=== PATIENT | female | born 1945 | race Caucasian/White ===

== ENCOUNTER 2016-11-19 22:27 | Emergency (ER) | payer MEDICARE, OTHER ==
[2016-11-19 22:47] LABS: BASO % 0.4 % (0-6); EOS % 3.5 % (0-6); GRAN % 57.4 % (47-80); HEMATOCRIT 34.6 % (35.0-47.0); HEMOGLOBIN 11.4 gm/dl (11.6-16.0); LYMPH % 27.1 % (16-45); MEAN CELL VOLUME 76.7 fl (81-97); MEAN CORPUSCULAR HEMOGLOBIN 25.2 pg (27-33); MEAN CORPUSCULAR HGB CONC 32.9 g/dl (32-36); MEAN PLATELET VOLUME 10.6 fl (7.4-10.4); MONO % 11.6 % (0-9); PLATELET COUNT 178 K/uL (130-400); RED BLOOD COUNT 4.51 M/uL (3.80-5.40); RED CELL DISTRIBUTION WIDTH 14.4 % (11.5-14.5); WHITE BLOOD COUNT W/O DIFF 10.4 K/uL (4.2-12.2)
--- NOTE | 2016-11-19 22:53 | Emergency Department Record ---
History of Present Illness - General Chief complaint: Swelling of legs Stated complaint: SWOLLEN FEET Time Seen by Provider: 11/19/16 22:34 Source: Patient Mode of Arrival: Ambulatory Limitations: No limitations - History of Present Illness Initial comments: 71 yo female presents to ED with a CC of "swelling all over, I feel like I'm retaining water". Patient denies chest pain or difficulty breathing. Patient denies change in her medications or sodium intake, denies fevers, chills, or recent illness. Patient does report a history of atrial fibrillation s/p ablation, still takes Eliquis daily. Complaint: Extremity swelling Onset/Timin -: Days(s) Location: Bilateral History of Same: Yes Consistency: Constant Improves with: Nothing Worsens with: Nothing Associated Symptoms: Denies other symptoms - Related Data Home Medications Medication Instructions Recorded Confirmed Last Taken Brimonidine Tartrate [Alphagan P] 1 drop OP BID 04/18/14 11/19/16 11/15/14 Carboxymethylcellulose Sodium 1 drop OP BID 04/18/14 11/19/16 11/15/14 [Refresh Tears] Cholecalciferol (Vitamin D3) 2,000 unit PO DAILY 04/18/14 11/19/16 11/15/14 [Vitamin D3] Cyclosporine [Restasis] 1 each OP BID 04/18/14 11/19/16 11/15/14 Fish Oil/Dha/Epa [Fish Oil 1,200 1 each PO DAILY 04/18/14 11/19/16 11/15/14 mg Fish Oil] Insulin Aspart [Novolog] 0 unit SQ QIDINS PRN 04/18/14 11/19/16 11/15/14 Insulin Glargine,Hum.rec.anlog 38 units SQ BID 04/18/14 11/19/16 11/15/14 [Lantus Solostar] Levothyroxine Sodium [Levoxyl] 50 mcg PO DAILYTHY 04/18/14 11/19/16 11/15/14 Multivitamin [Multi-Vitamin Daily] 1 each PO DAILY 04/18/14 11/19/16 11/15/14 Olopatadine HCl [Patanol] 5 ml OP BID 04/18/14 11/19/16 11/15/14 Omeprazole [Prilosec] 20 mg PO DAILYAC 06/12/0111/19/16 11/15/14 Pitavastatin Calcium [Livalo] 4 mg PO DAILY 04/18/14 11/19/16 11/15/14 Pregabalin [Lyrica] 150 mg PO DAILY PRN 04/18/14 11/19/16 11/15/14 Apixaban [Eliquis] 5 mg PO BID 11/05/14 11/19/16 11/15/14 Aspirin [Ecotrin] 81 mg PO DAILY 11/05/14 11/19/16 11/15/14 Potassium Chloride [Klor-Con] 40 meq PO DAILY 11/15/14 11/19/16 11/15/14 Losartan Potassium [Cozaar] 50 mg PO DAILY 05/29/15 11/19/16 Unknown Amlodipine Besylate [Norvasc] 5 mg PO DAILY 06/15/16 11/19/16 Unknown Bimatoprost [Lumigan] 1 drop OP QHS 06/18/16 11/19/16 Unknown Carvedilol [Coreg] 12.5 mg PO BID 06/18/16 11/19/16 Unknown Levothyroxine Sodium [Synthroid] 13 mcg PO DAILYTHY 06/18/16 11/19/16 Unknown Lipase/Protease/Amylase [Zenpep Dr 12 cap PO BID 06/18/16 11/19/16 Unknown 5,000 Units Capsule] Calcium Carbonate [Calcium] 600 mg PO DAILY 11/19/16 11/19/16 Unknown Clonidine HCl [Catapres] 0.1 mg PO BID PRN 11/19/16 11/19/16 Unknown Diphenoxylate HCl/Atropine 1 each PO QID 11/19/16 11/19/16 Unknown [Lomotil 2.5-0.025 mg Tablet] Furosemide [Lasix] 40 mg PO DAILY 11/19/16 11/19/16 Unknown Allergies Allergy/AdvReac Type Severity Reaction Status Date / Time hydrocodone bitartrate Allergy Unknown RASH Verified 09/29/16 21:24 [From VICODIN] hydromorphone HCl Allergy Unknown NAUSEA AND Verified 09/29/16 21:24 [From DILAUDID] VOMITING morphine [MORPHINE] Allergy Unknown NAUSEA AND Verified 09/29/16 21:24 VOMITING Travel Screening - Travel/Exposure Within Last 30 Days Have you traveled within the last 30 days?: No Review of Systems Constitutional: Denies: Chills, Fever, Malaise, Night sweats Eyes: Denies: Eye discharge, Eye pain ENT: Denies: Congestion, Ear pain, Epistaxis Respiratory: Denies: Cough, Dyspnea Cardiovascular: Reports: Edema. Denies: Chest pain, Dyspnea on exertion, Palpitations Endocrine: Denies: Fatigue, Heat or cold intolerance Gastrointestinal: Denies: Abdominal pain, Nausea, Vomiting Musculoskeletal: Denies: Arthralgia, Back pain, Gout, Joint swelling Skin: Denies: Bruising, Change in color Neurological: Denies: Abnormal gait, Headache Psychiatric: Denies: Anxiety Hematological/Lymphatic: Denies: Anemia, Blood Clots Past Medical History - SOCIAL HISTORY Smoking Status: Former smoker Alcohol Use: None - RESPIRATORY Hx Respiratory Disorders: Yes Hx Asthma: Yes - CARDIOVASCULAR Hx Cardio Disorders: Yes Hx CHF: Yes Hx Hypertension: Yes Hx Irregular Heartbeat: Yes (A-fib) Hx Palpitations: Yes Comment:: skips beat - NEURO Hx Neuro Disorders: No - GI Hx GI Disorders: Yes Hx Reflux: Yes Comment:: trouble with gastric enzymes - Hx Genitourinary Disorders: No - ENDOCRINE Hx Endocrine Disorders: Yes Hx Diabetes: Yes (type 2 with insulin) Hx Thyroid Disease: Yes (hypo) - MUSCULOSKELETAL Hx Musculoskeletal Disorders: Yes Hx Arthritis: Yes Hx Osteoporosis: Yes - PSYCH Hx Psych Problems: No - HEMATOLOGY/ONCOLOGY Hx Hematology/Oncology Disorders: Yes Hx Bruising: Yes Family Medical History Any Significant Family History?: Yes Hx Diabetes: Father, Mother, Brother/Sister Hx Heart Disease: Mother Hx Resp Disorders: Father Physical Exam - General General Appearance: Alert, Oriented x3, Cooperative, No acute distress Limitations: No limitations - Head Head exam: Atraumatic, Normocephalic, Normal inspection Head exam detail: negative: Abrasion, Contusion, Mane's sign, General tenderness, Hematoma, Laceration - Eye Eye exam: Normal appearance. negative: Conjunctival injection, Periorbital swelling, Periorbital tenderness, Scleral icterus - ENT Ear exam: negative: Auricular hematoma, Auricular trauma Nasal Exam: negative: Active bleeding, Discharge, Dried blood, Foreign body Mouth exam: negative: Drooling, Laceration, Muffled voice, Tongue elevation - Neck Neck exam: Normal inspection. negative: Meningismus - Respiratory Respiratory exam: Decreased breath sounds. negative: Respiratory distress, Rhonchi, Stridor, Wheezes - Cardiovascular Cardiovascular Exam: Regular rate, Normal rhythm, Normal heart sounds - GI/Abdominal GI/Abdominal exam: Soft. negative: Rebound, Rigid, Tenderness - Rectal Rectal exam: Deferred - exam: Deferred - Extremities Extremities exam: Pedal edema (2+ bilaterally). negative: Calf tenderness - Back Back exam: Denies: CVA tenderness (R), CVA tenderness (L) - Neurological Neurological exam: Alert, Normal gait, Oriented X3 - Psychiatric Psychiatric exam: Normal affect, Normal mood - Skin Skin exam: Normal color. negative: Abrasion Type of lesion: negative: abrasion Course Vital Signs 11/19/16 22:33 Temperature 97.6 F Pulse Rate [ 72 Pulse Ox Probe] Respiratory 20 Rate Blood Pressure 162/74 [Left Arm] Pulse Ox 95 - Reevaluation(s) Reevaluation #1: 11/19/16 22:48 EKG: NSR 65 LBBB, unchanged from 06/15/16 except for atrial fibrillation Reevaluation #2: 11/19/16 23:13 Labs reviewed and are grossly unremarkable for an acute process (BNP 294). CXR: Chronic changes, no pleural effusions or edema present Patient was updated on all results, no evidence for acute decompensated CHF on examination, renal function appears normal as well. Patient appears stable for discharge at this time with her scheduled appointment with her PCP later this week. Patient was advised to keep her lower extremities elevated as much as possible as well to reduce her edema symptoms. Medical Decision Making - Lab Data Result diagrams: 11/19/16 22:41 11/19/16 22:41 Lab Results 11/19/16 Range/Units 22:41 WBC 10.4 (4.2-12.2) K/uL RBC 4.51 (3.80-5.40) M/uL Hgb 11.4 L (11.6-16.0) gm/dl Hct 34.6 L (35.0-47.0) % MCV 76.7 L (81-97) fl MCH 25.2 L (27-33) pg MCHC 32.9 (32-36) g/dl RDW 14.4 (11.5-14.5) % Plt Count 178 (130-400) K/uL MPV 10.6 H (7.4-10.4) fl Gran % 57.4 (47-80) % Lymphocytes % 27.1 (16-45) % Monocytes % 11.6 H (0-9) % Eosinophils % 3.5 (0-6) % Basophils % 0.4 (0-6) % Disposition Disposition: Discharge Clinical Impression: Peripheral edema Disposition: Home, Self-Care Condition: (2) Stable Instructions: Leg Edema (ED) Additional Instructions: Return to ED if your symptoms worsen or if you have any concerns. Keep your legs elevated as much as possible Follow-up with your family doctor in 1-3 days as directed. Forms: Patient Portal Access Time of Disposition: 23:10
[2016-11-19 22:58] LABS: ALB/GLOB RATIO 1.4 (1.1-1.8); ALBUMIN 4.2 gm/dL (3.5-5.0); ALKALINE PHOSPHATASE 91 U/L (38-126); ALT/SGPT 49 U/L (9-52); ANION GAP 9.7 (7-16); AST/SGOT 30 U/L (14-36); BILIRUBIN,TOTAL 0.23 mg/dL (0.2-1.3); BLOOD UREA NITROGEN 22 mg/dL (7-17); CARBON DIOXIDE 24.3 mmol/L (22-30); CREATININE 0.8 mg/dL (0.52-1.04); EST GLOMERULAR FILTRATION RATE > 60 ml/min; GLUCOSE,RANDOM 179 mg/dL (70-110); TOTAL PROTEIN 7.1 gm/dL (6.3-8.2)
[2016-11-19 23:12] LABS: TROPONIN I < 0.012 ng/mL (0.00-0.034)
--- NOTE | 2016-11-22 16:54 | RADIOLOGY REPORT ---
DATE: 11/19/2016 at 11:01 p.m. EXAM: TWO-VIEW CHEST. HISTORY: Chest tightness and lower extremity swelling. Fluid overload. TECHNIQUE: AP and lateral upright views of the chest were obtained. COMPARISON: 03/14/2015. FINDINGS: There are low lung volumes. The heart is borderline enlarged. The mediastinum and pulmonary vasculature are normal. Mild chronic-appearing interstitial changes are present at the lung bases. There are no visible acute infiltrates or effusions. There is no pneumothorax. Degenerative changes are present within the spine and shoulders. IMPRESSION: 1. LOW LUNG VOLUMES. 2. BORDERLINE CARDIOMEGALY AND CHRONIC INTERSTITIAL CHANGES. 3. NO ACUTE CHEST PATHOLOGY. JOB NUMBER: [id number] [facility]
== END 2016-11-19 23:30 | disposition home or self-care (01) ==
LOC: ER 22:27
DX: R60.0 Localized edema (principal); I48.91 Unspecified atrial fibrillation; R07.89 Other chest pain; E11.9 Type 2 diabetes mellitus without complications; I10 Essential (primary) hypertension; I50.9 Heart failure, unspecified; Z79.4 Long term (current) use of insulin; Z87.891 Personal history of nicotine dependence
CPT/HCPCS: 71020; 80053; 83880; 84484; 85025; 93005; 93010; 99284

== ENCOUNTER 2017-11-21 21:00 | Inpatient (IN) | payer MEDICARE, OTHER ==
--- NOTE | 2017-11-21 21:10 | Emergency Department Record ---
History of Present Illness - General Stated complaint: body aches,fever Time Seen by Provider: 11/21/17 21:02 Source: Patient Mode of Arrival: EMS Limitations: No limitations - History of Present Illness Initial comments: 72 yo female presents to ED for evaluation of nausea and vomiting symptoms that began approximately 12:00 today. Patient denies abdominal pain symptoms, reports low-grade fever and body aches today as well. Patient denies cough or difficulty in breathing symptoms. MD complaint: Nausea, Vomiting Onset/Timin -: Hour(s) Associated Abdominal Pain: No Severity: Moderate Consistency: Intermittent Improves with: None Worsens with: None Associated Symptoms: Fever/chills - Related Data Home Medications Medication Instructions Recorded Confirmed Last Taken Acetaminophen with Codeine 1 tab PO Q6HR PRN 11/21/17 11/21/17 Unknown [Tylenol with Codeine #3 Tablet] Calcium Carbonate/Vitamin D3 1 each PO DAILY 11/21/17 11/21/17 11/21/17 [Calcium 600 + Vit D Tablet] Allergies Allergy/AdvReac Type Severity Reaction Status Date / Time hydrocodone bitartrate Allergy Unknown RASH Verified 09/29/16 21:24 [From VICODIN] hydromorphone HCl Allergy Unknown NAUSEA AND Verified 09/29/16 21:24 [From DILAUDID] VOMITING morphine [MORPHINE] Allergy Unknown NAUSEA AND Verified 09/29/16 21:24 VOMITING Review of Systems Constitutional: Reports: Fever, Malaise. Denies: Chills, Night sweats Eyes: Denies: Eye discharge, Eye pain ENT: Denies: Congestion, Ear pain, Epistaxis Respiratory: Denies: Cough, Dyspnea Cardiovascular: Denies: Chest pain, Dyspnea on exertion Endocrine: Denies: Fatigue, Heat or cold intolerance Gastrointestinal: Reports: Nausea, Vomiting. Denies: Constipation Genitourinary: Denies: Incontinence, Retention Musculoskeletal: Denies: Arthralgia, Back pain Skin: Denies: Bruising, Change in color Neurological: Denies: Abnormal gait, Confusion, Headache, Seizure Psychiatric: Denies: Anxiety Hematological/Lymphatic: Denies: Anemia, Blood Clots Past Medical History - SOCIAL HISTORY Smoking Status: Former smoker - RESPIRATORY Hx Respiratory Disorders: Yes Hx Asthma: Yes - CARDIOVASCULAR Hx Cardio Disorders: Yes Hx CHF: Yes Hx Hypertension: Yes Hx Irregular Heartbeat: Yes (A-fib) Hx Palpitations: Yes Comment:: skips beat - NEURO Hx Neuro Disorders: No - GI Hx GI Disorders: Yes Hx Reflux: Yes Comment:: trouble with gastric enzymes - Hx Genitourinary Disorders: No - ENDOCRINE Hx Endocrine Disorders: Yes Hx Diabetes: Yes (type 2 with insulin) Hx Thyroid Disease: Yes (hypo) - MUSCULOSKELETAL Hx Musculoskeletal Disorders: Yes Hx Arthritis: Yes Hx Osteoporosis: Yes - PSYCH Hx Psych Problems: No - HEMATOLOGY/ONCOLOGY Hx Hematology/Oncology Disorders: Yes Hx Bruising: Yes Family Medical History Hx Diabetes: Father, Mother, Brother/Sister Hx Heart Disease: Mother Hx Resp Disorders: Father Physical Exam - General General Appearance: Alert, Oriented x3, Cooperative, Moderate distress Limitations: No limitations - Head Head exam: Atraumatic, Normocephalic, Normal inspection Head exam detail: negative: Abrasion, Contusion, Mane's sign, General tenderness, Hematoma, Laceration - Eye Eye exam: Normal appearance. negative: Conjunctival injection, Periorbital swelling, Periorbital tenderness, Scleral icterus - ENT Ear exam: negative: Auricular hematoma, Auricular trauma Nasal Exam: negative: Active bleeding, Discharge, Dried blood, Foreign body Mouth exam: negative: Drooling, Laceration, Muffled voice, Tongue elevation - Neck Neck exam: Normal inspection. negative: Meningismus, Tenderness - Respiratory Respiratory exam: Normal lung sounds bilaterally. negative: Rales, Respiratory distress, Rhonchi, Stridor - Cardiovascular Cardiovascular Exam: Regular rate, Normal rhythm, Normal heart sounds - GI/Abdominal GI/Abdominal exam: Soft. negative: Rebound, Rigid, Tenderness - Rectal Rectal exam: Deferred - exam: Deferred - Extremities Extremities exam: Normal inspection. negative: Pedal edema, Tenderness - Back Back exam: Denies: CVA tenderness (R), CVA tenderness (L) - Neurological Neurological exam: Alert, Oriented X3 - Psychiatric Psychiatric exam: Normal affect, Normal mood - Skin Skin exam: Normal color. negative: Abrasion Type of lesion: negative: abrasion Course - Reevaluation(s) Reevaluation #1: 11/21/17 21:11 EKG: NSR 88 LBBB No further interpretation due to LBBB No change from 11/19/16 Reevaluation #2: 11/21/17 21:50 Labs reviewed, WBC 14.4, 83% neutrophils, Lactic acid 1.4, Influenza negative. Labs are otherwise grossly unremarkable for an acute process. Reevaluation #3: 11/21/17 22:09 CXR: Cardiomegaly, pulmonary vascular congestion Motrin 800 mg and Ofirmiv ordered for body aches/fever, will initiate treatment for probable CAP with Levaquin and Duonebs q4h. Reevaluation #4: 11/21/17 23:47 Patient was switched to Bipap prior to transfer to the floor, patient is sleeping, tolerating the Bipap well with oxygen saturations of 94-95%. Will admit to the floor for further evaluation. Reevaluation #5: 11/22/17 06:49 Case was discussed with Denise Martinez, will accept admission at this time. Medical Decision Making - Lab Data Result diagrams: 11/21/17 20:40 11/21/17 20:40 Disposition Disposition: Admit Clinical Impression: Hypoxia CAP (community acquired pneumonia) Qualifiers: Laterality: unspecified laterality Qualified Code(s): J18.9 - Pneumonia, unspecified organism Nausea & vomiting Qualifiers: Vomiting type: unspecified Vomiting Intractability: non-intractable Qualified Code(s): R11.2 - Nausea with vomiting, unspecified Disposition: Still a Patient at [facility] Decision to Admit: Admit from ER Decision to Admit Date: 11/21/17 Decision to Admit Time: 22:10 Condition: (2) Stable Time of Disposition: 21:52 Quality - Quality Measures Quality Measures: N/A - Blood Pressure Screening Does Patient Have Any of the Following: Active Dx of HTN Blood Pressure Classification: Pre-Hypertensive BP Reading Systolic Measurement: 130 Diastolic Measurement: 53 Screening for High Blood Pressure: Patient Exclusion, Hx of HTN [G9744]
[2017-11-21] MEDS ORDERED: 0.9 % SODIUM CHLORIDE 1000ML 1,000 ML IV SCH (21:15)
[2017-11-21 21:16] LABS: HEMATOCRIT 34.5 % (35.0-47.0); HEMOGLOBIN 11.3 gm/dl (11.6-16.0); MEAN CELL VOLUME 80.8 fl (81-97); MEAN CORPUSCULAR HGB CONC 32.8 g/dl (32-36); MEAN PLATELET VOLUME 10.5 fl (7.4-10.4); PLATELET COUNT 170 K/uL (130-400); RED BLOOD COUNT 4.27 M/uL (3.80-5.40); RED CELL DISTRIBUTION WIDTH 13.4 % (11.5-14.5); WHITE BLOOD COUNT W/O DIFF 14.4 K/uL (4.2-12.2)
[2017-11-21 21:18] LABS: MEAN CORPUSCULAR HEMOGLOBIN 26.4 pg (27-33)
[2017-11-21 21:30] LABS: INFLUENZA A NEGATIVE (NEGATIVE); INFLUENZA B NEGATIVE (NEGATIVE)
[2017-11-21 21:43] LABS: ALB/GLOB RATIO 1.2 (1.1-1.8); ALBUMIN 4.1 g/dL (4.0-5.0); ALKALINE PHOSPHATASE 104 U/L (35-104); ALT/SGPT 19 U/L (<33); AST/SGOT 20 U/L (10.0-35.0); BLOOD UREA NITROGEN 20 mg/dL (8-23); CREATININE 0.8 mg/dL (0.5-0.9); EST GLOMERULAR FILTRATION RATE > 60 mL/min; GLUCOSE,RANDOM 172 mg/dL (74-109); TOTAL PROTEIN 7.4 g/dL (6.6-8.7)
[2017-11-21] MEDS ORDERED: IPRATROPIUM/ALBUTEROL (0.5MG/3MG) NEB INH ONE (21:52)
[2017-11-21] MEDS ORDERED: ACETAMINOPHEN 1,000 MG/100 ML BTL IVPB ONE (22:07)
[2017-11-21] MEDS ORDERED: IBUPROFEN 400 MG TABLET PO ONE (22:07)
[2017-11-21] MEDS ORDERED: LEVOFLOXACIN 250MG IVPB 250 MG/50 ML BAG IVPB ONE (22:10)
[2017-11-21] MEDS ORDERED: LEVOFLOXACIN/D5W 750 MG/150 ML BAG IVPB ONE (22:18)
[2017-11-21] MEDS ORDERED: ACETAMINOPHEN 500 MG TABLET PO PRN (23:40)
[2017-11-21] MEDS ORDERED: ALBUTEROL SULFATE (0.083%) 2.5 MG/3 ML NEB INH PRN (23:40)
[2017-11-21] MEDS ORDERED: INSULIN ASPART 1 UNIT SQ PRN (23:40)
[2017-11-21] MEDS ORDERED: CLONIDINE HCL 0.1 MG TABLET PO PRN (23:40)
[2017-11-21] MEDS ORDERED: 0.9 % SODIUM CHLORIDE 1000ML 1,000 ML IV PRN (23:40)
[2017-11-21] MEDS ORDERED: ONDANSETRON HCL IV 4 MG/2 ML VIAL IVP PRN (23:40)
[2017-11-22] MEDS ORDERED: IPRATROPIUM/ALBUTEROL (0.5MG/3MG) NEB INH SCH (06:00)
[2017-11-22] MEDS: LEVOTHYROXINE SODIUM 50 MCG TABLET PO SCH (06:09)
[2017-11-22] MEDS ORDERED: PANTOPRAZOLE SODIUM 40 MG TABLET PO SCH (07:00)
--- NOTE | 2017-11-22 07:18 | RADIOLOGY REPORT ---
EXAM: CHEST, TWO VIEWS HISTORY: DIFFICULTY IN BREATHING. TECHNIQUE: Frontal and lateral views of the chest were performed. FINDINGS: There is cardiomegaly with mild pulmonary vascular congestion. No infiltrate or pleural effusion. The osseous structures are normal. IMPRESSION: CARDIOMEGALY WITH PULMONARY VASCULAR CONGESTION. JOB NUMBER: [id number] [facility]
[2017-11-22] MEDS ORDERED: LEVEMIR FLEXTOUCH 100 UNIT/ML INSULIN PEN SQ SCH (10:00)
[2017-11-22] MEDS ORDERED: [UNRECOGNIZED DRUG - REMARK] PO SCH (10:00)
[2017-11-22] MEDS ORDERED: PREGABALIN 50 MG CAPSULE PO PRN (10:00)
[2017-11-22] MEDS ORDERED: POTASSIUM CHLORIDE 20 MEQ TABLET PO SCH (10:00)
[2017-11-22] MEDS ORDERED: LOSARTAN POTASSIUM 100 MG TABLET PO SCH (10:00)
[2017-11-22] MEDS ORDERED: FUROSEMIDE 40 MG TABLET PO SCH (10:00)
[2017-11-22] MEDS ORDERED: CARVEDILOL 12.5 MG TABLET PO SCH (10:00)
[2017-11-22] MEDS ORDERED: FUROSEMIDE IV 20MG/2ML VIAL IVP ONE ×2 (10:09→16:00)
[2017-11-22] MEDS: NOVOLOG FLEXPEN (INSULIN ASPART) 100 UNITS/ML SQ SCH ×4 (10:24→21:39)
[2017-11-22] MEDS: LEVEMIR FLEXTOUCH 100 UNIT/ML INSULIN PEN SQ SCH ×2 (10:25→21:41)
[2017-11-22] MEDS: CARVEDILOL 12.5 MG TABLET PO SCH ×3 (10:29→23:11)
[2017-11-22] MEDS: POTASSIUM CHLORIDE 20 MEQ TABLET PO SCH ×2 (10:30→21:46)
[2017-11-22] MEDS: IPRATROPIUM/ALBUTEROL (0.5MG/3MG) NEB INH PRN ×3 (10:30→21:42)
[2017-11-22] MEDS: ASPIRIN 81 MG TABEC PO SCH (10:30)
[2017-11-22] MEDS: APIXABAN 5MG TABLET PO SCH ×2 (10:30→21:45)
--- NOTE | 2017-11-22 10:36 | History & Physical ---
History of Present Illness - Date of Service Date of Service for History & Physical: 11/22/17 - History of Present Illness Admitting Diagnosis: Hypoxia. CAP. Nausea/vomiting History of Present Illness: Fernanda is a 72 year-old female who was admitted on 11/21/17 for management of hypoxia. Her history includes A-fib (treated with daily Eliquis) , CHF, asthma, ex-smoker, IDDM, hypothyroid, hypertension, GERD, chronic diarrhea, issue with digestive enzymes, LL edema, chronic pain, arthritis, osteoporosis, spinal stenosis. She lives at home and normally ambulates with a cane. She presented to the ED on 11/21/17 via EMS after experiencing nausea, vomiting, and weakness at home for about 9 hours. Upon presentation to the ED, her oxygen was 78% on room air and her temp was 100.2F. Labs were drawn and her WBC was slightly elevated at 14.4, neurophils 83%. Her EKG showed NSR with left BBB, unchanged from EKG on 11/19/16. Influenza A and B were negative. Her chest x-ray showed cardiomegaly and pulmonary vascular congestion with no infiltrates. She was admitted for management of hypoxia from possible community acquired pneumonia. She was placed on continuous patient monitor and bipap during the night and started on Levaquin 750mg IV daily, Duonebs q4h while awake, and Albuterol neb q4h prn difficulty breathing. 11/22/17 1000- Pt. is resting in bed. She states that she feels much better today than she did yesterday. She denies nausea, vomiting, cough, recent illness, fever, and recent exposure to anyone ill. She states that she had been weighing herself at home and she had noticed some recent weight gain. She states that she takes all of her medications as scheduled and has not missed any doses of Eliquis or Lasix. She has remained afebrile throughout the night and NSR on continuous telemetry. She has received 2 duoneb treatments. Travel Screening - Travel/Exposure Within Last 30 Days Have you traveled within the last 30 days?: No - Travel/Exposure Within Last Year Have you traveled outside the [place] in the last year?: No - Additonal Travel Details Have you been exposed to anyone with a communicable illness?: No - Travel Symptoms Symptom Screening: None Review of Systems Constitutional: Reports: Malaise, Weight change. Denies: Chills, Fever, Night sweats Eyes: Denies: Eye discharge, Eye pain ENT: Denies: Congestion, Ear pain, Epistaxis Respiratory: Denies: Cough, Dyspnea Cardiovascular: Reports: Edema. Denies: Chest pain, Dyspnea on exertion Endocrine: Denies: Fatigue, Heat or cold intolerance Gastrointestinal: Reports: Nausea, Vomiting. Denies: Constipation Genitourinary: Denies: Incontinence, Retention Musculoskeletal: Denies: Arthralgia, Back pain Skin: Denies: Bruising, Change in color Neurological: Denies: Abnormal gait, Confusion, Headache, Seizure Psychiatric: Denies: Anxiety Hematological/Lymphatic: Denies: Anemia, Blood Clots Past Medical History - SOCIAL HISTORY Smoking Status: Former smoker Alcohol Use: None Drug Use: None - RESPIRATORY Hx Respiratory Disorders: Yes Hx Asthma: Yes - CARDIOVASCULAR Hx Cardio Disorders: Yes Hx CHF: Yes Hx Hypertension: Yes Hx Irregular Heartbeat: Yes (A-fib) Hx Palpitations: Yes Comment:: skips beat - NEURO Hx Neuro Disorders: No - GI Hx GI Disorders: Yes Hx Reflux: Yes Comment:: trouble with gastric enzymes - Hx Genitourinary Disorders: No - ENDOCRINE Hx Endocrine Disorders: Yes Hx Diabetes: Yes (type 2 with insulin) Hx Thyroid Disease: Yes (hypo) - MUSCULOSKELETAL Hx Musculoskeletal Disorders: Yes Hx Arthritis: Yes Hx Osteoporosis: Yes - PSYCH Hx Psych Problems: No - HEMATOLOGY/ONCOLOGY Hx Hematology/Oncology Disorders: Yes Hx Bruising: Yes Family Medical History Hx Diabetes: Father, Mother, Brother/Sister Hx Heart Disease: Mother Hx Resp Disorders: Father H&P Meds/Allergies - Allergies Allergies: Allergies Allergy/AdvReac Type Severity Reaction Status Date / Time hydrocodone bitartrate Allergy Unknown RASH Verified 09/29/16 21:24 [From VICODIN] hydromorphone HCl Allergy Unknown NAUSEA AND Verified 09/29/16 21:24 [From DILAUDID] VOMITING morphine [MORPHINE] Allergy Unknown NAUSEA AND Verified 09/29/16 21:24 VOMITING - Home Medications Home Medications Medication Instructions Recorded Confirmed Last Taken Acetaminophen with Codeine 1 tab PO Q6HR PRN 11/21/17 11/21/17 Unknown [Tylenol with Codeine #3 Tablet] Calcium Carbonate/Vitamin D3 1 each PO DAILY 11/21/17 11/21/1711/21/18 [Calcium 600 + Vit D Tablet] Amlodipine Besylate [Norvasc] 10 mg PO QHS 11/22/17 11/22/17 Unknown Carboxymethylcellulos/Glycerin 1 drop OPTH BID 11/22/17 11/22/17 Unknown [Refresh Optive Gel Eye Drops] - Active Medications Active Medications: Current Medications Acetaminophen (Tylenol 500mg Tab) 1,000 mg PO Q6H PRN PRN Reason: PAIN/TEMP Albuterol Sulfate () 2.5 mg INH RESP.Q4H PRN PRN Reason: DIFFICULTY IN BREATHING Albuterol/Ipratropium (Duoneb) 3 ml INH RESP.Q4H PRN PRN Reason: Wheezing Amlodipine Besylate (Norvasc) 10 mg PO QHS [facility] Lipase/Protease/Amylase (Pancrelipase 5,000 Dr Capsule) 4 each PO DAILYWM [facility] Lipase/Protease/Amylase (Pancrelipase 5,000 Dr Capsule) 3 each PO 1230,1730 [facility] Lipase/Protease/Amylase (Pancrelipase 5,000 Dr Capsule) 2 each PO QHS [facility] Apixaban (Eliquis) 5 mg PO BID [facility] Aspirin (Ecotrin (Ec)) 81 mg PO DAILY [facility] Carvedilol (Coreg) 25 mg PO BID [facility] Clonidine HCl (Catapres) 0.1 mg PO BID PRN PRN Reason: systolic greater than 150 Diphenoxylate HCl/Atropine (Lomotil) 1 udtab PO QIDWMHS [facility] Diphenoxylate HCl/Atropine (Lomotil) 1 udtab PO 0600 [facility] Furosemide (Lasix) 40 mg PO DAILY [facility] Furosemide (Lasix Iv) 20 mg IVP NOW ONE Stop: 11/22/17 10:10 Levofloxacin/Dextrose (Levaquin 750mg Ivpb) 750 mg in 150 mls @ 125 mls/hr IVPB Q24H [facility] Stop: 11/27/17 22:01 Insulin Aspart (Novolog Flexpen) 1 unit SQ QIDINS [facility] PRN Reason: Protocol Insulin Detemir (Levemir Flextouch) 27 unit SQ BID [facility] Levothyroxine Sodium (Synthroid) 50 mcg PO DAILYTHY [facility] Last Admin: 11/22/17 06:09 Dose: 50 mcg Levothyroxine Sodium (Synthroid) 12.5 mcg PO DAILYTHY [facility] Losartan Potassium (Losartan Potassium) 100 mg PO DAILY [facility] Non-Formulary Medication (Bimatoprost [Lumigan]) 1 drop OP QHS [facility] Non-Formulary Medication (Brimonidine Tartrate [Alphagan P]) 1 drop OP BID [facility] Non-Formulary Medication (Carboxymethylcellulose Sodium [Refresh Tears]) 1 drop OP BID [facility] Non-Formulary Medication (Cyclosporine [Restasis]) 1 each OP BID [facility] Non-Formulary Medication (Pitavastatin Calcium [Livalo]) 4 mg PO DAILY [facility] Ondansetron HCl (Zofran) 4 mg IVP Q6H PRN PRN Reason: NAUSEA Pantoprazole Sodium (Protonix) 40 mg PO QHS [facility] Potassium Chloride (Klor-Con) 20 meq PO BID [facility] Pregabalin (Lyrica) 150 mg PO QD PRN PRN Reason: Analgesia Physical Exam - Vital Signs Vital Signs: Vital Signs - Last 24 Hrs Temp Pulse Pulse Pulse Resp BP Pulse Ox 11/22/17 06:12 62 22 100 11/22/17 02:35 61 99 11/22/17 00:58 98.6 F 66 72 22 111/50 93 L 11/21/17 23:55 98.0 F 72 24 119/67 97 - General General Appearance: Alert, Oriented x3, Cooperative, Mild distress Limitations: No limitations - Head Head exam: Atraumatic, Normocephalic, Normal inspection Head exam detail: negative: Abrasion, Contusion, Mane's sign, General tenderness, Hematoma, Laceration - Eye Eye exam: Normal appearance. negative: Conjunctival injection, Periorbital swelling, Periorbital tenderness, Scleral icterus - ENT Ear exam: negative: Auricular hematoma, Auricular trauma Nasal Exam: negative: Active bleeding, Discharge, Dried blood, Foreign body Mouth exam: negative: Drooling, Laceration, Muffled voice, Tongue elevation - Neck Neck exam: Normal inspection. negative: Meningismus, Tenderness - Respiratory Respiratory exam: Decreased breath sounds. negative: Rales, Rhonchi, Stridor, Wheezes - Cardiovascular Cardiovascular Exam: Regular rate, Normal rhythm, Normal heart sounds Peripheral Pulses: 2+: Dorsalis Pedis (R), Dorsalis Pedis (L) - GI/Abdominal GI/Abdominal exam: Soft. negative: Rebound, Rigid, Tenderness - Rectal Rectal exam: Deferred - exam: Deferred - Extremities Extremities exam: Normal inspection, Other (Left LE trace edema). negative: Pedal edema, Tenderness - Back Back exam: Denies: CVA tenderness (R), CVA tenderness (L) - Neurological Neurological exam: Alert, Oriented X3 - Psychiatric Psychiatric exam: Normal affect, Normal mood - Skin Skin exam: Normal color. negative: Abrasion Type of lesion: negative: abrasion Results - Labs Result Diagrams: 11/22/17 10:27 11/22/17 10:27 - Imaging and Cardiology Chest x-ray Status: Report reviewed VTE H&P Assessment - Risk for VTE Risk for VTE: Yes Risk Level: Moderate Risk Assessment Date: 11/22/17 Risk Assessment Time: 11:08 VTE Orders Placed or Will Be Placed: No VTE Reason for No Prophylaxis: Not Indicated (Pt. is currently being anticoagulated for A-fib with Eliquis) Plan - Inpatient Certification Inpatient Certification: Admit to inpatient care: Based on my medical assessment, after consideration of patient's risk factors (age, co-morbidities and patient presenting symptoms and acuity), I expect that this patient will remain in the hospital greater than or equal to two midnights and that the services needed warrant inpatient care because: Patient Risk Factors: [Age, co-morbidities of IDDM, CHF, A-fib, HTN, asthma] Estimated length of stay: [] The patient may reasonably be expected to be discharged or transferred to a hospital within 96 hours after admission to [facility]. Services needed: [echo, patient monitor, fluid restriction, PT/OT eval, lab monitoring] Post hospital care (if known): [] I certify that my determination is in accordance with my understanding of Medicare requirements for reasonable and necessary inpatient services. 11/22/17 10:34 - Detailed Diagnosis and Plan (1) Hypoxia Current Visit: Yes Status: Acute Base Code: R09.02 - HYPOXEMIA Comment: 04/04- Pt. oxygen was 78% on room air upon presentation to ED on 11/21/17. She was placed on bipap overnight and now 91% on 4L nc. CXR showed pulmonary vascular congestion and cardiomegaly, no infiltrates. Continuing O2 nc, working up CHF diagnosis with 2 L/day fluid restriction, daily weights, echo. (2) CHF (congestive heart failure) Current Visit: Yes Status: Acute Base Code: I50.9 - HEART FAILURE, UNSPECIFIED Comment: 11/22/17- Consider CHF as underlying cause of hypoxia. CXR showed pulmonary vascular congestion, no visible infiltrates. Pt. now 91% on 4L nc (was 78% on room air upon arrival to ED). Echo ordered today, saline locked IV, daily weights, 2L/day fluid restriction, 20mg lasix IV ordered to [facility]. Labs ordered this morning- CBC with diff, CMP, BNP, TSH. (3) Nausea & vomiting Current Visit: Yes Status: Acute Qualifiers: Vomiting type: unspecified Vomiting Intractability: non-intractable Qualified Code(s): R11.2 - Nausea with vomiting, unspecified Base Code: R11.2 - NAUSEA WITH VOMITING, UNSPECIFIED Comment: 11/22/17- Pt. presented via EMS to ED on 11/21/17 after experiencing nausea and vomiting at home for 8 hours. Pt. denies change in bowel patterns, history of chronic diarrhea. T 100.2F, WBC 14.4. Nausea and vomiting now resolved. Pt. tolerating PO diet. UA ordered to check for possible underlying infection. (4) DVT prophylaxis Current Visit: No Status: Acute Base Code: [id number] - Comment: 11/22/17- Patient is at increased risk with age, restricted mobility and history of afib. Pt. is being treated with Eliquis 5mg PO BID, will continue treatment while hospitalized and pt. jorge continue medication upon discharge. (5) Full code status Current Visit: No Status: Acute Base Code: Z78.9 - OTHER SPECIFIED HEALTH STATUS Comment: 11/22/17- Pt. is full code status
[2017-11-22 10:37] LABS: HEMATOCRIT 31.9 % (35.0-47.0); HEMOGLOBIN 10.1 gm/dl (11.6-16.0); MEAN CELL VOLUME 82.6 fl (81-97); MEAN CORPUSCULAR HGB CONC 31.7 g/dl (32-36); PLATELET COUNT 160 K/uL (130-400); RED BLOOD COUNT 3.86 M/uL (3.80-5.40); RED CELL DISTRIBUTION WIDTH 13.7 % (11.5-14.5); WHITE BLOOD COUNT W/O DIFF 15.2 K/uL (4.2-12.2)
[2017-11-22] MEDS: DIPHENOXYLATE HCL/ATROP 2.5/0.025MG TABLET PO SCH ×4 (10:43→21:47)
[2017-11-22] MEDS: LOSARTAN POTASSIUM 100 MG TABLET PO SCH (10:43)
[2017-11-22 10:45] LABS: MEAN CORPUSCULAR HEMOGLOBIN 26.1 pg (27-33)
[2017-11-22] MEDS: LEVOTHYROXINE SODIUM 25 MCG TABLET PO SCH (10:45)
[2017-11-22 11:44] LABS: URINE APPEARANCE CLEAR; URINE BILIRUBIN NEGATIVE (NEGATIVE); URINE BLOOD MODERATE (NEGATIVE); URINE COLOR YELLOW; URINE GLUCOSE (UA) NEGATIVE (NEGATIVE); URINE KETONE NEGATIVE (NEGATIVE); URINE LEUKOCYTE ESTERASE MODERATE (NEGATIVE); URINE NITRITE NEGATIVE (NEGATIVE); URINE UROBILINOGEN 0.2 E.U./dL (0.20 - 1.00)
[2017-11-22 11:56] LABS: URINE RBC 0 - 2 (NONE SEEN); URINE WBC >50 (0-2/hpf)
[2017-11-22 11:57] LABS: URINE BACTERIA 3+; URINE MUCUS HEAVY
[2017-11-22] MEDS: [UNRECOGNIZED DRUG - REMARK] PO SCH ×3 (12:21→21:48)
[2017-11-22] MEDS: BRIMONIDINE TARTRATE OP SCH ×2 (21:26→21:27)
[2017-11-22] MEDS: Non-Formulary MISC (Cyclosporine [Restasis] 1 EACH) OP SCH ×2 (21:27→21:44)
[2017-11-22] MEDS: BIMATOPROST OP SCH (21:38)
[2017-11-22] MEDS: LEVOFLOXACIN 500 MG TABLET PO SCH (21:46)
[2017-11-22] MEDS: PANTOPRAZOLE SODIUM 40 MG TABLET PO SCH (21:48)
[2017-11-22] MEDS: AMLODIPINE BESYLATE 5MG TAB PO SCH ×2 (21:48→23:11)
[2017-11-22] MEDS: ACETAMINOPHEN 325 MG TAB PO PRN (22:00)
[2017-11-22] MEDS ORDERED: LEVOFLOXACIN/D5W 750 MG/150 ML BAG IVPB SCH (22:00)
[2017-11-23] MEDS: IPRATROPIUM/ALBUTEROL (0.5MG/3MG) NEB INH PRN ×3 (06:26→20:32)
[2017-11-23 06:42] LABS: HEMATOCRIT 30.4 % (35.0-47.0); HEMOGLOBIN 9.8 gm/dl (11.6-16.0); MEAN CELL VOLUME 82.4 fl (81-97); MEAN CORPUSCULAR HGB CONC 32.2 g/dl (32-36); MEAN PLATELET VOLUME 10.2 fl (7.4-10.4); PLATELET COUNT 157 K/uL (130-400); RED BLOOD COUNT 3.69 M/uL (3.80-5.40); RED CELL DISTRIBUTION WIDTH 13.8 % (11.5-14.5); WHITE BLOOD COUNT W/O DIFF 15.2 K/uL (4.2-12.2)
[2017-11-23 06:50] LABS: MEAN CORPUSCULAR HEMOGLOBIN 26.5 pg (27-33)
[2017-11-23] MEDS: LEVOTHYROXINE SODIUM 50 MCG TABLET PO SCH (06:53)
[2017-11-23] MEDS: LEVOTHYROXINE SODIUM 25 MCG TABLET PO SCH (06:53)
[2017-11-23] MEDS: DIPHENOXYLATE HCL/ATROP 2.5/0.025MG TABLET PO SCH ×5 (06:53→22:23)
[2017-11-23 07:01] LABS: ALB/GLOB RATIO 1.1 (1.1-1.8); ALBUMIN 3.1 g/dL (4.0-5.0); BILIRUBIN,TOTAL 0.5 mg/dL (0.2-1.0); TOTAL PROTEIN 5.8 g/dL (6.6-8.7)
[2017-11-23] MEDS: ACETAMINOPHEN 325 MG TAB PO PRN ×3 (07:02→22:21)
[2017-11-23] MEDS: NOVOLOG FLEXPEN (INSULIN ASPART) 100 UNITS/ML SQ SCH ×4 (08:26→22:20)
[2017-11-23] MEDS: [UNRECOGNIZED DRUG - REMARK] PO SCH ×4 (08:26→22:22)
[2017-11-23] MEDS: LEVEMIR FLEXTOUCH 100 UNIT/ML INSULIN PEN SQ SCH ×3 (08:29→22:24)
[2017-11-23] MEDS: CARBOXYMETHYLCELLULOSE SODIUM OP SCH ×4 (08:31→22:23)
[2017-11-23] MEDS: PITAVASTATIN CALCIUM 4 MG PO SCH ×2 (08:31→11:11)
[2017-11-23] MEDS: Non-Formulary MISC (Cyclosporine [Restasis] 1 EACH) OP SCH ×2 (10:57→22:24)
[2017-11-23] MEDS: BRIMONIDINE TARTRATE OP SCH ×2 (11:07→22:23)
[2017-11-23] MEDS: CEFTRIAXONE SODIUM 1 GM in 0.9 % SODIUM CHLORIDE 100ML 100 ML IVPB SCH ×2 (11:08→22:18)
[2017-11-23] MEDS: APIXABAN 5MG TABLET PO SCH ×2 (11:09→22:23)
[2017-11-23] MEDS: POTASSIUM CHLORIDE 20 MEQ TABLET PO SCH ×2 (11:09→22:22)
[2017-11-23] MEDS: CARVEDILOL 12.5 MG TABLET PO SCH ×2 (11:09→22:22)
[2017-11-23] MEDS: ASPIRIN 81 MG TABEC PO SCH (11:09)
[2017-11-23] MEDS: LOSARTAN POTASSIUM 100 MG TABLET PO SCH (11:10)
[2017-11-23] MEDS: FUROSEMIDE IV 40MG/4ML VIAL IVP SCH ×2 (11:10→15:39)
--- NOTE | 2017-11-23 13:39 | Physician Progress Note ---
Subjective - Date Date of Physician Progress Note: 11/23/17 - Subjective Subjective Comment: 11/23/17- Patient states she is feeling a little better today. She says she isn't as weak as she was when she came in. She has been up and ambulating to the bathroom with her walker several times this morning. She denies any shortness of breath today and has not been having cough or chest pain. She denies any further nausea or vomiting since admission. Has been eating well and bowel movements remain unchanged from baseline. She denies any urinary burning but reports a foul odor to her urine. She does feel like her legs are more swollen than normal. Objective - Vital Signs Vital Signs: Vital Signs - Last 24 Hrs Temp Pulse Pulse Resp BP Pulse Ox 11/23/17 09:00 20 11/23/17 08:00 98.6 F 69 20 110/69 97 11/23/17 06:26 68 20 94 L 11/23/17 01:20 96 11/23/17 00:45 99.3 F 11/22/17 21:45 100.9 F H 11/22/17 21:42 83 22 88 L 11/22/17 20:45 91 L 11/22/17 20:30 100.5 F H 79 20 112/51 87 L 11/22/17 14:05 98.3 F 64 18 118/53 99 - General General Appearance: Alert, Oriented x3, Cooperative, No acute distress, Mild distress Limitations: No limitations - Head Head exam: Atraumatic, Normocephalic, Normal inspection Head exam detail: negative: Abrasion, Contusion, Mane's sign, General tenderness, Hematoma, Laceration - Eye Eye exam: Normal appearance. negative: Conjunctival injection, Periorbital swelling, Periorbital tenderness, Scleral icterus - ENT Ear exam: negative: Auricular hematoma, Auricular trauma Nasal Exam: negative: Active bleeding, Discharge, Dried blood, Foreign body Mouth exam: negative: Drooling, Laceration, Muffled voice, Tongue elevation - Neck Neck exam: Normal inspection. negative: Meningismus, Tenderness - Respiratory Respiratory exam: Rales (crackles throughout both lungs). negative: Accessory muscle use, Rhonchi, Stridor, Wheezes - Cardiovascular Cardiovascular Exam: Regular rate, Normal rhythm, Normal heart sounds Peripheral Pulses: 2+: Dorsalis Pedis (R), Dorsalis Pedis (L) - GI/Abdominal GI/Abdominal exam: Soft. negative: Rebound, Rigid, Tenderness - Rectal Rectal exam: Deferred - exam: Deferred - Extremities Extremities exam: Normal inspection, Other (Left LE trace edema). negative: Pedal edema, Tenderness - Back Back exam: Denies: CVA tenderness (R), CVA tenderness (L) - Neurological Neurological exam: Alert, Oriented X3 - Psychiatric Psychiatric exam: Normal affect, Normal mood - Skin Skin exam: Normal color. negative: Abrasion Type of lesion: negative: abrasion Assessment and Plan - Inpatient Certification Inpatient Certification: 11/23/17 13:38 inpatient criteria: risk factors: age, chf, hypoxia, leukocytosis estimated length of stay: 72-96H services needed: supplemental oxygen, antibiotics, IV diuresis - Assessment and Plan (1) CHF (congestive heart failure) Current Visit: Yes Status: Acute Base Code: I50.9 - HEART FAILURE, UNSPECIFIED Comment: 11/23/17- Consider CHF as underlying cause of hypoxia. CXR showed pulmonary vascular congestion, no visible infiltrates. Echo completed yesterday but not read yet. BNP was >5000. Weight is up to 181 from 179 yesterday. Satting better (98% on 4L) during the day, down to 88% at night. 1+ pitting edema b/l. -fluid restrict to 1500cc -lasix 40mg IV BID -daily weights -I&O -continue ARB and BB -repeat labs qam -vitals q8H (2) Hypoxia Current Visit: Yes Status: Acute Base Code: R09.02 - HYPOXEMIA Comment: 05/05- Pt. oxygen was 78% on room air upon presentation to ED on 11/21/17. CXR showed pulmonary vascular congestion and cardiomegaly, no infiltrates. Currently 97-99% on 5L NC. had episode of dropping to 88% on 4L last night but improved with 6L NC and did not require bipap through the night. Likely 2/2 CHF exacerbation - Continuing O2 nc to keep sat >92% -continue treatment of CHF exacerbation -incentive spirometry -rapid influenza negative. ordered respiratory viral panel -continuous pulse ox (3) Nausea & vomiting Current Visit: Yes Status: Acute Qualifiers: Vomiting type: unspecified Vomiting Intractability: non-intractable Qualified Code(s): R11.2 - Nausea with vomiting, unspecified Base Code: R11.2 - NAUSEA WITH VOMITING, UNSPECIFIED Comment: 11/23/17- resolved. Pt. denies change in bowel patterns, history of chronic diarrhea. (4) Urinary tract infection Current Visit: Yes Status: Acute Qualifiers: Urinary tract infection type: acute cystitis Hematuria presence: without hematuria Qualified Code(s): N30.00 - Acute cystitis without hematuria Base Code: N39.0 - URINARY TRACT INFECTION, SITE NOT SPECIFIED Comment: -UA showed moderate leuk, bacteria and mucus. Urine culture pending. levaquin 750mg po daily. WBC count still 15.2 unchangd from yesterday and she spiked a fever of 100.5 last night. -will add rocephin 1gm iv q12h -repeat labs qam (5) DVT prophylaxis Current Visit: No Status: Acute Base Code: [id number] - Comment: 11/23/17- Patient is at increased risk with age, restricted mobility and history of afib. Pt. is being treated with Eliquis 5mg PO BID, will continue treatment while hospitalized (6) Full code status Current Visit: No Status: Acute Base Code: Z78.9 - OTHER SPECIFIED HEALTH STATUS Comment: 11/23/17- Pt. is full code status Results - Labs Result Diagrams: 11/23/17 06:10 11/23/17 06:10 Labs Last 24 Hours: Laboratory Results - last 24 hr 11/22/17 11/22/17 11/22/17 10:27 17:30 21:40 WBC RBC Hgb Hct MCV MCH MCHC RDW Plt Count MPV Neutrophils % Eosinophils % Basophils % Lymphocytes Monocytes Sodium Not Reportable Potassium Not Reportable Chloride Not Reportable Carbon Dioxide Not Reportable Anion Gap Not Reportable BUN Not Reportable Creatinine Not Reportable Estimated GFR Not Reportable POC Glucose 149 H 133 H Random Glucose Not Reportable Calcium Not Reportable Total Bilirubin Not Reportable AST Not Reportable ALT Not Reportable Alkaline Phosphatase Not Reportable Total Protein Not Reportable Albumin Not Reportable Globulin Not Reportable Albumin/Globulin Ratio Not Reportable TSH Not Reportable 11/23/17 11/23/17 11/23/17 06:10 06:10 12:20 WBC 15.2 H RBC 3.69 L Hgb 9.8 L Hct 30.4 L MCV 82.4 MCH 26.5 L MCHC 32.2 RDW 13.8 Plt Count 157 MPV 10.2 Neutrophils % 62.0 Eosinophils % Not Reportable Basophils % Not Reportable Lymphocytes 14.0 L Monocytes 24.0 H Sodium 135 L Potassium 4.4 Chloride 98 Carbon Dioxide 26.0 Anion Gap 11.0 BUN 20 Creatinine 1.0 H Estimated GFR 58 POC Glucose 160 H Random Glucose 141 H Calcium 9.2 Total Bilirubin 0.50 AST 25 ALT 15 Alkaline Phosphatase 73 Total Protein 5.8 L Albumin 3.1 L Globulin 2.7 Albumin/Globulin Ratio 1.1 TSH DVT/PE Assessment - Risk for VTE Risk for VTE: No Risk Level: Moderate Risk Assessment Date: 11/22/17 Risk Assessment Time: 11:08 VTE Orders Placed or Will Be Placed: No VTE Reason for No Prophylaxis: Not Indicated (Pt. is currently being anticoagulated for A-fib with Eliquis) - Active Medicaitons Current Medications: Current Medications Acetaminophen (Tylenol 325mg) 650 mg PO Q6H PRN PRN Reason: FEVER/PAIN Last Admin: 11/23/17 13:35 Dose: 650 mg Albuterol Sulfate () 2.5 mg INH RESP.Q4H PRN PRN Reason: DIFFICULTY IN BREATHING Albuterol/Ipratropium (Duoneb) 3 ml INH RESP.Q4H PRN PRN Reason: Wheezing Last Admin: 11/23/17 06:26 Dose: 3 ml Amlodipine Besylate (Norvasc) 10 mg PO QHS [facility] Last Admin: 11/22/17 23:11 Dose: Not Given Lipase/Protease/Amylase (Pancrelipase 5,000 Dr Capsule) 4 each PO DAILYWM [facility] Last Admin: 11/23/17 08:26 Dose: 4 each Lipase/Protease/Amylase (Pancrelipase 5,000 Dr Capsule) 3 each PO 1230,1730 [facility] Last Admin: 11/23/17 12:05 Dose: 3 each Lipase/Protease/Amylase (Pancrelipase 5,000 Dr Capsule) 2 each PO QHS [facility] Last Admin: 11/22/17 21:48 Dose: 2 each Apixaban (Eliquis) 5 mg PO BID [facility] Last Admin: 11/23/17 11:09 Dose: 5 mg Aspirin (Ecotrin (Ec)) 81 mg PO DAILY [facility] Last Admin: 11/23/17 11:09 Dose: 81 mg Carvedilol (Coreg) 25 mg PO BID [facility] Last Admin: 11/23/17 11:09 Dose: 25 mg Clonidine HCl (Catapres) 0.1 mg PO BID PRN PRN Reason: systolic greater than 150 Diphenoxylate HCl/Atropine (Lomotil) 1 udtab PO QIDWMHS [facility] Last Admin: 11/23/17 12:05 Dose: 1 udtab Diphenoxylate HCl/Atropine (Lomotil) 1 udtab PO 0600 [facility] Last Admin: 11/23/17 06:53 Dose: 1 udtab Furosemide (Lasix Iv) 40 mg IVP BIDDIUR [facility] Last Admin: 11/23/17 11:10 Dose: 40 mg Ceftriaxone Sodium 1 gm/ (Sodium Chloride) 100 mls @ 200 mls/hr IVPB Q12H [facility] Stop: 11/28/17 09:31 Last Infusion: 11/23/17 12:31 Dose: Infused Insulin Aspart (Novolog Flexpen) 1 unit SQ QIDINS [facility] PRN Reason: Protocol Last Admin: 11/23/17 12:08 Dose: 16 unit Insulin Detemir (Levemir Flextouch) 27 unit SQ BID [facility] Last Admin: 11/23/17 10:57 Dose: Not Given Levofloxacin (Levaquin Tab) 750 mg PO QHS [facility] Last Admin: 11/22/17 21:46 Dose: 750 mg Levothyroxine Sodium (Synthroid) 50 mcg PO DAILYTHY [facility] Last Admin: 11/23/17 06:53 Dose: 50 mcg Levothyroxine Sodium (Synthroid) 12.5 mcg PO DAILYTHY [facility] Last Admin: 11/23/17 06:53 Dose: 12.5 mcg Losartan Potassium (Losartan Potassium) 100 mg PO DAILY [facility] Last Admin: 11/23/17 11:10 Dose: 100 mg Non-Formulary Medication (Bimatoprost [Lumigan]) 1 drop OP QHS [facility] Last Admin: 11/22/17 21:38 Dose: 1 drop Non-Formulary Medication (Brimonidine Tartrate [Alphagan P]) 1 drop OP BID [facility] Last Admin: 11/23/17 11:07 Dose: 1 drop Non-Formulary Medication (Carboxymethylcellulose Sodium [Refresh Tears]) 1 drop OP BID [facility] Last Admin: 11/23/17 10:56 Dose: Not Given Non-Formulary Medication (Cyclosporine [Restasis]) 1 each OP BID [facility] Last Admin: 11/23/17 10:57 Dose: Not Given Non-Formulary Medication (Pitavastatin Calcium [Livalo]) 4 mg PO DAILY [facility] Last Admin: 11/23/17 11:11 Dose: Not Given Ondansetron HCl (Zofran) 4 mg IVP Q6H PRN PRN Reason: NAUSEA Pantoprazole Sodium (Protonix) 40 mg PO QHS [facility] Last Admin: 11/22/17 21:48 Dose: 40 mg Potassium Chloride (Klor-Con) 20 meq PO BID [facility] Last Admin: 11/23/17 11:09 Dose: 20 meq Pregabalin (Lyrica) 150 mg PO QD PRN PRN Reason: Analgesia AMI Plan - Labs Result Diagrams: 11/23/17 06:10 11/23/17 06:10
[2017-11-23] MEDS: AMLODIPINE BESYLATE 5MG TAB PO SCH (22:22)
[2017-11-23] MEDS: LEVOFLOXACIN 500 MG TABLET PO SCH (22:22)
[2017-11-23] MEDS: PANTOPRAZOLE SODIUM 40 MG TABLET PO SCH (22:23)
[2017-11-23] MEDS: BIMATOPROST OP SCH (22:23)
[2017-11-24] MEDS: IPRATROPIUM/ALBUTEROL (0.5MG/3MG) NEB INH PRN ×2 (06:04→09:39)
[2017-11-24] MEDS: DIPHENOXYLATE HCL/ATROP 2.5/0.025MG TABLET PO SCH ×5 (06:18→22:24)
[2017-11-24] MEDS: LEVOTHYROXINE SODIUM 25 MCG TABLET PO SCH (06:18)
[2017-11-24 06:19] LABS: BASO % 0.3 % (0-6); EOS % 2.2 % (0-6); GRAN % 56.1 % (47-80); HEMATOCRIT 29.7 % (35.0-47.0); HEMOGLOBIN 9.7 gm/dl (11.6-16.0); LYMPH % 26.4 % (16-45); MEAN CORPUSCULAR HGB CONC 32.7 g/dl (32-36); MEAN PLATELET VOLUME 10.4 fl (7.4-10.4); PLATELET COUNT 164 K/uL (130-400); RED BLOOD COUNT 3.62 M/uL (3.80-5.40); RED CELL DISTRIBUTION WIDTH 13.6 % (11.5-14.5); WHITE BLOOD COUNT W/O DIFF 9.2 K/uL (4.2-12.2)
[2017-11-24] MEDS: LEVOTHYROXINE SODIUM 50 MCG TABLET PO SCH (06:19)
[2017-11-24 06:21] LABS: MEAN CORPUSCULAR HEMOGLOBIN 26.7 pg (27-33)
[2017-11-24 06:37] LABS: ALBUMIN 3.1 g/dL (4.0-5.0); BILIRUBIN,TOTAL 0.3 mg/dL (0.2-1.0); TOTAL PROTEIN 6.3 g/dL (6.6-8.7)
[2017-11-24] MEDS: [UNRECOGNIZED DRUG - REMARK] PO SCH ×4 (08:07→22:23)
[2017-11-24] MEDS: NOVOLOG FLEXPEN (INSULIN ASPART) 100 UNITS/ML SQ SCH ×4 (08:55→22:16)
[2017-11-24] MEDS: LEVEMIR FLEXTOUCH 100 UNIT/ML INSULIN PEN SQ SCH ×2 (09:01→22:17)
[2017-11-24] MEDS: CEFTRIAXONE SODIUM 1 GM in 0.9 % SODIUM CHLORIDE 100ML 100 ML IVPB SCH ×2 (09:49→22:12)
[2017-11-24] MEDS: FUROSEMIDE IV 40MG/4ML VIAL IVP SCH ×2 (09:50→16:59)
[2017-11-24] MEDS: ASPIRIN 81 MG TABEC PO SCH (09:55)
[2017-11-24] MEDS: POTASSIUM CHLORIDE 20 MEQ TABLET PO SCH ×2 (09:55→22:24)
[2017-11-24] MEDS: CARVEDILOL 12.5 MG TABLET PO SCH ×2 (09:56→22:23)
[2017-11-24] MEDS: LOSARTAN POTASSIUM 100 MG TABLET PO SCH (09:56)
[2017-11-24] MEDS: APIXABAN 5MG TABLET PO SCH ×2 (09:56→22:24)
[2017-11-24] MEDS ORDERED: HEPARIN SODIUM FLUSH 100 UNITS/ML SYR 5ML IV PRN (10:32)
[2017-11-24] MEDS ORDERED: 0.9 % SODIUM CHLORIDE 10ML SYR IVP PRN (10:32)
[2017-11-24] MEDS: PITAVASTATIN CALCIUM 4 MG PO SCH (10:35)
[2017-11-24] MEDS: Non-Formulary MISC (Cyclosporine [Restasis] 1 EACH) OP SCH ×2 (10:35→22:13)
[2017-11-24] MEDS: BRIMONIDINE TARTRATE OP SCH ×2 (10:35→22:13)
[2017-11-24] MEDS: CARBOXYMETHYLCELLULOSE SODIUM OP SCH ×2 (10:35→22:13)
--- NOTE | 2017-11-24 12:29 | Physician Progress Note ---
Subjective - Date Date of Physician Progress Note: 11/24/17 - Subjective Subjective Comment: 11/24/17- Patient states last evening she really started feeling better. Her oxygen saturation has improved. She was actually weaned down on her oxygen through the night and was satting 97% in 2L and this morning has been 93% on room air. She denies SOB at rest but says she feels a little winded when she gets up to go to the bathroom. She says her appetite has improved and she has not had any further nausea/vomiting. Objective - Vital Signs Vital Signs: Vital Signs - Last 24 Hrs Temp Pulse Pulse Resp BP Pulse Ox 11/24/17 09:45 93 L 11/24/17 09:40 67 15 97 11/24/17 06:04 62 16 97 11/24/17 04:00 97.5 F L 60 121/51 97 11/23/17 22:05 99 11/23/17 20:45 63 16 11/23/17 20:39 98.2 F 61 119/55 99 11/23/17 20:32 63 16 98 11/23/17 16:00 98 F 100 H 18 117/51 100 11/23/17 13:49 99 11/23/17 13:47 67 19 99 - General General Appearance: Alert, Oriented x3, Cooperative, No acute distress Limitations: No limitations - Head Head exam: Atraumatic, Normocephalic, Normal inspection Head exam detail: negative: Abrasion, Contusion, Mane's sign, General tenderness, Hematoma, Laceration - Eye Eye exam: Normal appearance. negative: Conjunctival injection, Periorbital swelling, Periorbital tenderness, Scleral icterus - ENT Ear exam: negative: Auricular hematoma, Auricular trauma Nasal Exam: negative: Active bleeding, Discharge, Dried blood, Foreign body Mouth exam: negative: Drooling, Laceration, Muffled voice, Tongue elevation - Neck Neck exam: Normal inspection. negative: Meningismus, Tenderness - Respiratory Respiratory exam: Rales (crackles now just in left base ). negative: Accessory muscle use, Rhonchi, Stridor, Wheezes - Cardiovascular Cardiovascular Exam: Regular rate, Normal rhythm, Normal heart sounds Peripheral Pulses: 2+: Dorsalis Pedis (R), Dorsalis Pedis (L) - GI/Abdominal GI/Abdominal exam: Soft. negative: Rebound, Rigid, Tenderness - Rectal Rectal exam: Deferred - exam: Deferred - Extremities Extremities exam: Normal inspection, Other (Left LE trace edema). negative: Pedal edema, Tenderness - Back Back exam: Denies: CVA tenderness (R), CVA tenderness (L) - Neurological Neurological exam: Alert, Oriented X3 - Psychiatric Psychiatric exam: Normal affect, Normal mood - Skin Skin exam: Normal color. negative: Abrasion Type of lesion: negative: abrasion Assessment and Plan - Assessment and Plan (1) CHF (congestive heart failure) Current Visit: Yes Status: Acute Base Code: I50.9 - HEART FAILURE, UNSPECIFIED Comment: 11/24/17- Consider CHF as underlying cause of hypoxia. CXR showed pulmonary vascular congestion, no visible infiltrates. Echo completed on 11/22 but not read yet. BNP was >5000. Weight down to 180 from 181. Satting better (93% on room air) and did well through the night 97% on 2L NC. edema resolved but crackles in left lower base continues. - continue fluid restrict to 1500cc - continue lasix 40mg IV BID -daily weights -I&O -continue ARB and BB -repeat labs qam -vitals q8H -repeat CXR today (2) Hypoxia Current Visit: Yes Status: Acute Base Code: R09.02 - HYPOXEMIA Comment: 06/04- improving. Pt. oxygen was 78% on room air upon presentation to ED on 03/05. CXR showed pulmonary vascular congestion and cardiomegaly, no infiltrates. 97% on 2L through the night and currently 93% on room air. Likely 2/2 CHF exacerbation - Continuing O2 nc to keep sat >92% -continue treatment of CHF exacerbation -incentive spirometry - respiratory viral panel pending -continuous pulse ox (3) Nausea & vomiting Current Visit: Yes Status: Acute Qualifiers: Vomiting type: unspecified Vomiting Intractability: non-intractable Qualified Code(s): R11.2 - Nausea with vomiting, unspecified Base Code: R11.2 - NAUSEA WITH VOMITING, UNSPECIFIED Comment: 11/24/17- resolved. Pt. denies change in bowel patterns, history of chronic diarrhea. (4) Urinary tract infection Current Visit: Yes Status: Acute Qualifiers: Urinary tract infection type: acute cystitis Hematuria presence: without hematuria Qualified Code(s): N30.00 - Acute cystitis without hematuria Base Code: N39.0 - URINARY TRACT INFECTION, SITE NOT SPECIFIED Comment: - improving. UA showed moderate leuk, bacteria and mucus. Urine culture pending. WBC count down to 9 today from 15.2 with addition of rocephin 1gm IV q12H. awaiting urine culture and repeat CXR prior to dc levaquin. -continue rocephin 1gm iv q12h and levaquin 750mg po daily -repeat labs qam (5) DVT prophylaxis Current Visit: No Status: Acute Base Code: [id number] - Comment: 11/24/17- Patient is at increased risk with age, restricted mobility and history of afib. Pt. is being treated with Eliquis 5mg PO BID, will continue treatment while hospitalized (6) Full code status Current Visit: No Status: Acute Base Code: Z78.9 - OTHER SPECIFIED HEALTH STATUS Comment: 11/24/17- Pt. is full code status Results - Labs Result Diagrams: 11/24/17 06:00 11/24/17 06:00 Labs Last 24 Hours: Laboratory Results - last 24 hr 11/23/17 11/23/17 11/23/17 12:20 17:42 22:45 WBC RBC Hgb Hct MCV MCH MCHC RDW Plt Count MPV Gran % Lymphocytes % Monocytes % Eosinophils % Basophils % Sodium Potassium Chloride Carbon Dioxide Anion Gap BUN Creatinine Estimated GFR POC Glucose 160 H 108 137 H Random Glucose Calcium Total Bilirubin AST ALT Alkaline Phosphatase Total Protein Albumin Globulin Albumin/Globulin Ratio 11/24/17 11/24/17 11/24/17 06:00 06:00 07:45 WBC 9.2 RBC 3.62 L Hgb 9.7 L Hct 29.7 L MCV 82.0 MCH 26.7 L MCHC 32.7 RDW 13.6 Plt Count 164 MPV 10.4 Gran % 56.1 Lymphocytes % 26.4 Monocytes % 15.0 H Eosinophils % 2.2 Basophils % 0.3 Sodium 136 Potassium 4.4 Chloride 101 Carbon Dioxide 25.0 Anion Gap 10.0 BUN 22 Creatinine 1.0 H Estimated GFR 58 POC Glucose 92 Random Glucose 81 Calcium 9.4 Total Bilirubin 0.30 AST 18 ALT 14 Alkaline Phosphatase 73 Total Protein 6.3 L Albumin 3.1 L Globulin 3.2 Albumin/Globulin Ratio 1.0 L DVT/PE Assessment - Risk for VTE Risk for VTE: No Risk Level: Moderate Risk Assessment Date: 11/22/17 Risk Assessment Time: 11:08 VTE Orders Placed or Will Be Placed: No VTE Reason for No Prophylaxis: Not Indicated (Pt. is currently being anticoagulated for A-fib with Eliquis) - Active Medicaitons Current Medications: Current Medications Acetaminophen (Tylenol 325mg) 650 mg PO Q6H PRN PRN Reason: FEVER/PAIN Last Admin: 11/23/17 22:21 Dose: 650 mg Albuterol Sulfate () 2.5 mg INH RESP.Q4H PRN PRN Reason: DIFFICULTY IN BREATHING Albuterol/Ipratropium (Duoneb) 3 ml INH RESP.Q4H PRN PRN Reason: Wheezing Last Admin: 11/24/17 09:39 Dose: 3 ml Amlodipine Besylate (Norvasc) 10 mg PO QHS [facility] Last Admin: 11/23/17 22:22 Dose: 10 mg Lipase/Protease/Amylase (Pancrelipase 5,000 Dr Capsule) 4 each PO DAILYWM [facility] Last Admin: 11/24/17 08:07 Dose: 4 each Lipase/Protease/Amylase (Pancrelipase 5,000 Dr Capsule) 3 each PO 1230,1730 [facility] Last Admin: 11/23/17 18:12 Dose: 3 each Lipase/Protease/Amylase (Pancrelipase 5,000 Dr Capsule) 2 each PO QHS [facility] Last Admin: 11/23/17 22:22 Dose: 2 each Apixaban (Eliquis) 5 mg PO BID [facility] Last Admin: 11/24/17 09:56 Dose: 5 mg Aspirin (Ecotrin (Ec)) 81 mg PO DAILY [facility] Last Admin: 11/24/17 09:55 Dose: 81 mg Carvedilol (Coreg) 25 mg PO BID [facility] Last Admin: 11/24/17 09:56 Dose: 25 mg Clonidine HCl (Catapres) 0.1 mg PO BID PRN PRN Reason: systolic greater than 150 Diphenoxylate HCl/Atropine (Lomotil) 1 udtab PO QIDWMHS [facility] Last Admin: 11/24/17 08:06 Dose: 1 udtab Diphenoxylate HCl/Atropine (Lomotil) 1 udtab PO 0600 [facility] Last Admin: 11/24/17 06:18 Dose: 1 udtab Furosemide (Lasix Iv) 40 mg IVP BIDDIUR [facility] Last Admin: 11/24/17 09:50 Dose: 40 mg Heparin Sodium (Porcine) () 500 unit IV NOW PRN PRN Reason: flush Ceftriaxone Sodium 1 gm/ (Sodium Chloride) 100 mls @ 200 mls/hr IVPB Q12H [facility] Stop: 11/28/17 09:31 Last Infusion: 11/24/17 10:35 Dose: Infused Insulin Aspart (Novolog Flexpen) 1 unit SQ QIDINS [facility] PRN Reason: Protocol Last Admin: 11/24/17 08:55 Dose: 9 unit Insulin Detemir (Levemir Flextouch) 27 unit SQ BID [facility] Last Admin: 11/24/17 09:01 Dose: 27 unit Levofloxacin (Levaquin Tab) 750 mg PO QHS [facility] Last Admin: 11/23/17 22:22 Dose: 750 mg Levothyroxine Sodium (Synthroid) 50 mcg PO DAILYTHY [facility] Last Admin: 11/24/17 06:19 Dose: 50 mcg Levothyroxine Sodium (Synthroid) 12.5 mcg PO DAILYTHY [facility] Last Admin: 11/24/17 06:18 Dose: 12.5 mcg Losartan Potassium (Losartan Potassium) 100 mg PO DAILY [facility] Last Admin: 11/24/17 09:56 Dose: 100 mg Non-Formulary Medication (Bimatoprost [Lumigan]) 1 drop OP QHS [facility] Last Admin: 11/23/17 22:23 Dose: 1 drop Non-Formulary Medication (Brimonidine Tartrate [Alphagan P]) 1 drop OP BID [facility] Last Admin: 11/24/17 10:35 Dose: 1 drop Non-Formulary Medication (Carboxymethylcellulose Sodium [Refresh Tears]) 1 drop OP BID [facility] Last Admin: 11/24/17 10:35 Dose: 1 drop Non-Formulary Medication (Cyclosporine [Restasis]) 1 each OP BID [facility] Last Admin: 11/24/17 10:35 Dose: 1 each Non-Formulary Medication (Pitavastatin Calcium [Livalo]) 4 mg PO DAILY [facility] Last Admin: 11/24/17 10:35 Dose: Not Given Ondansetron HCl (Zofran) 4 mg IVP Q6H PRN PRN Reason: NAUSEA Pantoprazole Sodium (Protonix) 40 mg PO QHS [facility] Last Admin: 11/23/17 22:23 Dose: 40 mg Potassium Chloride (Klor-Con) 20 meq PO BID [facility] Last Admin: 11/24/17 09:55 Dose: 20 meq Pregabalin (Lyrica) 150 mg PO QD PRN PRN Reason: Analgesia Sodium Chloride () 10 ml IVP NOW PRN PRN Reason: flush AMI Plan - Labs Result Diagrams: 11/24/17 06:00 11/24/17 06:00
[2017-11-24] MEDS: BIMATOPROST OP SCH (22:13)
[2017-11-24] MEDS: LEVOFLOXACIN 500 MG TABLET PO SCH (22:23)
[2017-11-24] MEDS: AMLODIPINE BESYLATE 5MG TAB PO SCH (22:25)
[2017-11-24] MEDS: PANTOPRAZOLE SODIUM 40 MG TABLET PO SCH (22:25)
[2017-11-25] MEDS: LEVOTHYROXINE SODIUM 50 MCG TABLET PO SCH (06:35)
[2017-11-25] MEDS: DIPHENOXYLATE HCL/ATROP 2.5/0.025MG TABLET PO SCH ×3 (06:35→12:13)
[2017-11-25] MEDS: ACETAMINOPHEN 325 MG TAB PO PRN ×2 (06:35→15:08)
[2017-11-25] MEDS: LEVOTHYROXINE SODIUM 25 MCG TABLET PO SCH (06:36)
[2017-11-25 06:56] LABS: BASO % 0.4 % (0-6); EOS % 2.9 % (0-6); GRAN % 57.7 % (47-80); HEMATOCRIT 32.4 % (35.0-47.0); HEMOGLOBIN 10.6 gm/dl (11.6-16.0); LYMPH % 27.7 % (16-45); MEAN CELL VOLUME 81.2 fl (81-97); MEAN CORPUSCULAR HGB CONC 32.7 g/dl (32-36); MEAN PLATELET VOLUME 10.6 fl (7.4-10.4); MONO % 11.3 % (0-9); PLATELET COUNT 195 K/uL (130-400); RED BLOOD COUNT 3.99 M/uL (3.80-5.40); RED CELL DISTRIBUTION WIDTH 13.2 % (11.5-14.5); WHITE BLOOD COUNT W/O DIFF 8.9 K/uL (4.2-12.2)
[2017-11-25 07:03] LABS: MEAN CORPUSCULAR HEMOGLOBIN 26.5 pg (27-33)
[2017-11-25 07:07] LABS: ALB/GLOB RATIO 1.1 (1.1-1.8); ALBUMIN 3.5 g/dL (4.0-5.0); ALKALINE PHOSPHATASE 90 U/L (35-104); ALT/SGPT 14 U/L (<33); AST/SGOT 15 U/L (10.0-35.0); BLOOD UREA NITROGEN 19 mg/dL (8-23); CREATININE 0.9 mg/dL (0.5-0.9); EST GLOMERULAR FILTRATION RATE > 60 mL/min; GLUCOSE,RANDOM 80 mg/dL (74-109); TOTAL PROTEIN 6.6 g/dL (6.6-8.7)
--- NOTE | 2017-11-25 07:27 | RADIOLOGY REPORT ---
EXAM: CHEST, TWO VIEWS HISTORY: CRACKLES IN THE LEFT BASE, HYPOXIA. TECHNIQUE: PA and lateral views of the chest were obtained. Comparison: Two view chest dated 11/21/17. Report of the prior study is not as yet available within PACS. FINDINGS: The heart size projects slightly smaller, at about the upper limits of normal. There is new opacity in the right base probably a combination of infiltrate and pleural effusion. This may represent some pneumonitis in the right lower lobe. Mild blunting of the left lateral costophrenic angle. Mild streaky atelectasis or infiltrate left mid to lower lung laterally. No pneumothorax evident. IMPRESSION: 1. PROGRESSIVE PLEURAL AND PARENCHYMAL DENSITY IN THE RIGHT BASE COMPARED WITH 11/21/17 MAY REPRESENT SOME NEW MILD PNEUMONITIS AT THE RIGHT BASE WITH ASSOCIATED PLEURAL EFFUSION. 2. PERSISTENT SMALL LEFT PLEURAL EFFUSION BLUNTING THE COSTOPHRENIC ANGLES. MINOR STREAKY ATELECTASIS OR INFILTRATE LEFT MID TO LOWER LUNG LATERALLY. 3. CONTINUED FOLLOW-UP SUGGESTED. JOB NUMBER: [id number] [facility]
--- NOTE | 2017-11-25 07:36 | Discharge Summary ---
Providers Discharge Summary Date: 11/25/17 Date of admission: 11/21/17 23:36 Expected Date of Discharge: 11/25/17 Attending physician: Stephon Peralta Primary care physician: JOCELYNE SHAH M.D. Physical Exam - Vital Signs Vital Signs: Vital Signs - Last 24 Hrs Temp Pulse Pulse Resp BP BP Pulse Ox 11/25/17 03:55 98.9 F 67 18 109/47 98 11/24/17 21:50 68 12 92 L 11/24/17 20:15 66 12 93 L 11/24/17 20:00 66 18 140/52 93 L 11/24/17 12:00 98.4 F 71 20 133/62 92 L 11/24/17 09:45 93 L 11/24/17 09:40 67 15 97 - General General Appearance: Alert, Oriented x3, Cooperative, No acute distress Limitations: No limitations - Head Head exam: Atraumatic, Normocephalic, Normal inspection Head exam detail: negative: Abrasion, Contusion, Mane's sign, General tenderness, Hematoma, Laceration - Eye Eye exam: Normal appearance. negative: Conjunctival injection, Periorbital swelling, Periorbital tenderness, Scleral icterus - ENT Ear exam: negative: Auricular hematoma, Auricular trauma Nasal Exam: negative: Active bleeding, Discharge, Dried blood, Foreign body Mouth exam: negative: Drooling, Laceration, Muffled voice, Tongue elevation - Neck Neck exam: Normal inspection. negative: Meningismus, Tenderness - Respiratory Respiratory exam: negative: Accessory muscle use, Rales, Rhonchi, Stridor, Wheezes - Cardiovascular Cardiovascular Exam: Regular rate, Normal rhythm, Normal heart sounds Peripheral Pulses: 2+: Dorsalis Pedis (R), Dorsalis Pedis (L) - GI/Abdominal GI/Abdominal exam: Soft. negative: Rebound, Rigid, Tenderness - Rectal Rectal exam: Deferred - exam: Deferred - Extremities Extremities exam: Normal inspection. negative: Pedal edema, Tenderness, Other - Back Back exam: Denies: CVA tenderness (R), CVA tenderness (L) - Neurological Neurological exam: Alert, Oriented X3 - Psychiatric Psychiatric exam: Normal affect, Normal mood - Skin Skin exam: Normal color. negative: Abrasion Type of lesion: negative: abrasion Hospitalization - Hospitalization Admission Diagnosis: Hypoxia. CAP. Nausea/vomiting - Problem List/Discharge Diagnosis (1) CHF (congestive heart failure) Status: Acute Discharge Diagnosis: Congestive heart failure type: systolic Congestive heart failure chronicity : acute on chronic Qualified Code(s): I50.23 - Acute on chronic systolic ( congestive) heart failure Base Code: I50.9 - HEART FAILURE, UNSPECIFIED Comment: 11/25/17- echo completed on 11/22/17 showing EF of 49% with aortic stenosis. Her BNP on admission was >5000. Weight down from 181 to 175 with diuresis and fluid restriction and oxygen saturation improved as well. She had home oxygen qualifier today and does not require home oxygen which is significantly improved from admission (O2 at 78%). -plan to discharge home today. follow up with Dr. Hale 11/28/17. - continue fluid restrict to 1500-2000cc until she follows up with her gas roller operator - continue lasix 40mg po daily -continue ARB and BB (2) Hypoxia Status: Acute Base Code: R09.02 - HYPOXEMIA Comment: 11/25/17- resolved.did not qualify for home o2. CXR on 11/22/17 showed pulmonary vascular congestion and cardiomegaly, no infiltrates. repeat CXR 11/24 showed possible consolidation in the right base. She has done received 4 doses of levaquin 750mg daily and continues IV rocephin -transition to cefdinir 300mg po daily for 8 more days, total 10 day course -continue duoneb treatments QID prn. Script for nebulizer and duoneb solution sent to [facility] -follow up with Dr. Shah on 11/27 (3) Nausea & vomiting Status: Acute Discharge Diagnosis: Vomiting type: unspecified Vomiting Intractability: non-intractable Qualified Code(s): R11.2 - Nausea with vomiting, unspecified Base Code: R11.2 - NAUSEA WITH VOMITING, UNSPECIFIED Comment: 11/25/17- resolved. Pt. denies change in bowel patterns, history of chronic diarrhea. (4) Urinary tract infection Status: Acute Discharge Diagnosis: Urinary tract infection type: acute cystitis Hematuria presence: without hematuria Qualified Code(s): N30.00 - Acute cystitis without hematuria Base Code: N39.0 - URINARY TRACT INFECTION, SITE NOT SPECIFIED Comment: - improving. UA showed moderate leuk, bacteria and mucus. Urine culture pending. WBC count remains in the normal range and she is afebrile. -transition to cefdinir 300mg po bid for 8 more days -follow up with Dr. Shah on 11/27 (5) DVT prophylaxis Status: Acute Base Code: RRV0806 - Comment: 11/25/17- Patient is at increased risk with age, restricted mobility and history of afib. Pt. is being treated with Eliquis 5mg PO BID, will continue treatment while hospitalized (6) Full code status Status: Acute Base Code: Z78.9 - OTHER SPECIFIED HEALTH STATUS Comment: 11/25- Pt. is full code status - Hospitalization Course Disposition: Home, Self-Care Hospital Course: Fernanda is a 72 year-old female who was admitted on 11/21/17 for management of hypoxia. Her history includes A-fib (treated with daily Eliquis) , CHF, asthma, ex-smoker, IDDM, hypothyroid, hypertension, GERD, chronic diarrhea, issue with digestive enzymes, LL edema, chronic pain, arthritis, osteoporosis, spinal stenosis. She lives at home and normally ambulates with a cane. She presented to the ED on 11/21/17 via EMS after experiencing nausea, vomiting, and weakness at home for about 9 hours. Upon presentation to the ED, her oxygen was 78% on room air and her temp was 100.2F. Labs were drawn and her WBC was slightly elevated at 14.4, neurophils 83%. Her EKG showed NSR with left BBB, unchanged from EKG on 11/19/16. Influenza A and B were negative. Her chest x-ray showed cardiomegaly and pulmonary vascular congestion with no infiltrates. She was admitted for management of hypoxia from possible community acquired pneumonia. She was placed on continuous certified shorthand reporter and bipap during the night and started on Levaquin 750mg IV daily, Duonebs q4h while awake, and Albuterol neb q4h prn difficulty breathing. 11/22/17 1000- Pt. is resting in bed. She states that she feels much better today than she did yesterday. She denies nausea, vomiting, cough, recent illness, fever, and recent exposure to anyone ill. She states that she had been weighing herself at home and she had noticed some recent weight gain. She states that she takes all of her medications as scheduled and has not missed any doses of Eliquis or Lasix. She has remained afebrile throughout the night and NSR on continuous telemetry. She has received 2 duoneb treatments. 11/23/17- Patient states she is feeling a little better today. She says she isn't as weak as she was when she came in. She has been up and ambulating to the bathroom with her walker several times this morning. She denies any shortness of breath today and has not been having cough or chest pain. She denies any further nausea or vomiting since admission. Has been eating well and bowel movements remain unchanged from baseline. She denies any urinary burning but reports a foul odor to her urine. She does feel like her legs are more swollen than normal. 11/24/17- Patient states last evening she really started feeling better. Her oxygen saturation has improved. She was actually weaned down on her oxygen through the night and was satting 97% in 2L and this morning has been 93% on room air. She denies SOB at rest but says she feels a little winded when she gets up to go to the bathroom. She says her appetite has improved and she has not had any further nausea/vomiting. 11/25/17- patient states she continues to feel well. She did not need oxygen through the night or this morning. She feels like her legs are much less swollen than when she came in. She continues to deny any cough, runny nose or congestion. She has been up and ambulating independently. Procedures: Imaging and X-Rays 11/24/17 12:22 CHEST 2 VIEWS [RAD] Stat Cardiology Procedures 11/22/17 09:58 Echo W/CF & Cardiac Doppler NOW Abnormal Labs: Abnormal Lab Results 11/22/17 11/22/17 11/22/17 Range/Units 07:00 10:27 10:27 WBC 15.2 H (4.2-12.2) K/uL RBC (3.80-5.40) M/uL Hgb 10.1 L (11.6-16.0) gm/dl Hct 31.9 L (35.0-47.0) % MCH 26.1 L (27-33) pg MCHC 31.7 L (32-36) g/dl MPV (7.4-10.4) fl Monocytes % (0-9) % Lymphocytes 13.0 L (16-45) % Monocytes (0-9) % Sodium (136-145) mmol/L Creatinine (0.5-0.9) mg/dL POC Glucose 213 H (70-110) mg/dL Random Glucose (74-109) mg/dL NT-Pro-B Natriuret Pep 5254.00 H (<125) pg/mL Total Protein (6.6-8.7) g/dL Albumin (4.0-5.0) g/dL Albumin/Globulin Ratio (1.1-1.8) Urine Protein (NEGATIVE) Ur Leukocyte Esterase (NEGATIVE) 11/22/17 11/22/17 11/22/17 Range/Units 12:26 17:30 21:40 WBC (4.2-12.2) K/uL RBC (3.80-5.40) M/uL Hgb (11.6-16.0) gm/dl Hct (35.0-47.0) % MCH (27-33) pg MCHC (32-36) g/dl MPV (7.4-10.4) fl Monocytes % (0-9) % Lymphocytes (16-45) % Monocytes (0-9) % Sodium (136-145) mmol/L Creatinine (0.5-0.9) mg/dL POC Glucose 217 H 149 H 133 H (70-110) mg/dL Random Glucose (74-109) mg/dL NT-Pro-B Natriuret Pep (<125) pg/mL Total Protein (6.6-8.7) g/dL Albumin (4.0-5.0) g/dL Albumin/Globulin Ratio (1.1-1.8) Urine Protein (NEGATIVE) Ur Leukocyte Esterase (NEGATIVE) 11/22/17 11/23/17 11/23/17 Range/Units Unknown 06:10 06:10 WBC 15.2 H (4.2-12.2) K/uL RBC 3.69 L (3.80-5.40) M/uL Hgb 9.8 L (11.6-16.0) gm/dl Hct 30.4 L (35.0-47.0) % MCH 26.5 L (27-33) pg MCHC (32-36) g/dl MPV (7.4-10.4) fl Monocytes % (0-9) % Lymphocytes 14.0 L (16-45) % Monocytes 24.0 H (0-9) % Sodium 135 L (136-145) mmol/L Creatinine 1.0 H (0.5-0.9) mg/dL POC Glucose (70-110) mg/dL Random Glucose 141 H (74-109) mg/dL NT-Pro-B Natriuret Pep (<125) pg/mL Total Protein 5.8 L (6.6-8.7) g/dL Albumin 3.1 L (4.0-5.0) g/dL Albumin/Globulin Ratio (1.1-1.8) Urine Protein 30 mg/dl H (NEGATIVE) Ur Leukocyte Esterase Moderate H (NEGATIVE) 11/23/17 11/23/17 11/24/17 Range/Units 12:20 22:45 06:00 WBC (4.2-12.2) K/uL RBC 3.62 L (3.80-5.40) M/uL Hgb 9.7 L (11.6-16.0) gm/dl Hct 29.7 L (35.0-47.0) % MCH 26.7 L (27-33) pg MCHC (32-36) g/dl MPV (7.4-10.4) fl Monocytes % 15.0 H (0-9) % Lymphocytes (16-45) % Monocytes (0-9) % Sodium (136-145) mmol/L Creatinine (0.5-0.9) mg/dL POC Glucose 160 H 137 H (70-110) mg/dL Random Glucose (74-109) mg/dL NT-Pro-B Natriuret Pep (<125) pg/mL Total Protein (6.6-8.7) g/dL Albumin (4.0-5.0) g/dL Albumin/Globulin Ratio (1.1-1.8) Urine Protein (NEGATIVE) Ur Leukocyte Esterase (NEGATIVE) 11/24/17 11/24/17 11/24/17 Range/Units 06:00 12:06 17:38 WBC (4.2-12.2) K/uL RBC (3.80-5.40) M/uL Hgb (11.6-16.0) gm/dl Hct (35.0-47.0) % MCH (27-33) pg MCHC (32-36) g/dl MPV (7.4-10.4) fl Monocytes % (0-9) % Lymphocytes (16-45) % Monocytes (0-9) % Sodium (136-145) mmol/L Creatinine 1.0 H (0.5-0.9) mg/dL POC Glucose 167 H 186 H (70-110) mg/dL Random Glucose (74-109) mg/dL NT-Pro-B Natriuret Pep (<125) pg/mL Total Protein 6.3 L (6.6-8.7) g/dL Albumin 3.1 L (4.0-5.0) g/dL Albumin/Globulin Ratio 1.0 L (1.1-1.8) Urine Protein (NEGATIVE) Ur Leukocyte Esterase (NEGATIVE) 11/24/17 11/25/17 11/25/17 Range/Units 22:04 06:25 06:35 WBC (4.2-12.2) K/uL RBC (3.80-5.40) M/uL Hgb 10.6 L (11.6-16.0) gm/dl Hct 32.4 L (35.0-47.0) % MCH 26.5 L (27-33) pg MCHC (32-36) g/dl MPV 10.6 H (7.4-10.4) fl Monocytes % 11.3 H (0-9) % Lymphocytes (16-45) % Monocytes (0-9) % Sodium (136-145) mmol/L Creatinine (0.5-0.9) mg/dL POC Glucose 266 H (70-110) mg/dL Random Glucose (74-109) mg/dL NT-Pro-B Natriuret Pep (<125) pg/mL Total Protein (6.6-8.7) g/dL Albumin 3.5 L (4.0-5.0) g/dL Albumin/Globulin Ratio (1.1-1.8) Urine Protein (NEGATIVE) Ur Leukocyte Esterase (NEGATIVE) Condition at Discharge: (2) Stable Discharge Medications - Discharge Medications Prescriptions: Cefdinir 300 mg PO BID #16 capsule Home Medications: Ambulatory Orders Brimonidine Tartrate [Alphagan P] 1 drop OP BID 04/18/14 [Last Taken 11/21/17] Cholecalciferol (Vitamin D3) [Vitamin D3] 1,000 unit PO DAILY 04/18/14 [Last Taken 11/21/17] Cyclosporine [Restasis] 1 each OP BID 04/18/14 [Last Taken 11/21/17] Fish Oil/Dha/Epa [Fish Oil 1,200 mg Fish Oil] 1 each PO DAILY 04/18/14 [Last Taken 11/21/17] Insulin Aspart [Novolog] 0 unit SQ QIDINS PRN 04/18/14 [Last Taken 11/21/17] Insulin Glargine,Hum.rec.anlog [Lantus Solostar] 27 units SQ BID 04/18/14 [Last Taken 11/21/17] Levothyroxine Sodium [Levoxyl] 50 mcg PO DAILYTHY 04/18/14 [Last Taken 11/21/17] Multivitamin [Multi-Vitamin Daily] 1 each PO DAILY 04/18/14 [Last Taken 11/21/17 ] Olopatadine HCl [Patanol] 5 ml OP BID 04/18/14 [Last Taken 11/21/17] Omeprazole [Prilosec] 20 mg PO QHS 04/18/14 [Last Taken 11/21/17] Pitavastatin Calcium [Livalo] 4 mg PO DAILY 04/18/14 [Last Taken 11/21/17] Pregabalin [Lyrica] 150 mg PO DAILY PRN 04/18/14 [Last Taken 11/21/17] Apixaban [Eliquis] 5 mg PO BID 11/05/14 [Last Taken 11/21/17] Aspirin [Ecotrin] 81 mg PO DAILY 11/05/14 [Last Taken 11/21/17] Potassium Chloride [Klor-Con] 20 meq PO BID 11/15/14 [Last Taken 11/21/17] Losartan Potassium [Cozaar] 100 mg PO DAILY 05/29/15 [Last Taken 11/21/17] Bimatoprost [Lumigan] 1 drop OP QHS 06/18/16 [Last Taken 11/21/17] Carvedilol [Coreg] 25 mg PO BID 06/18/16 [Last Taken 11/21/17] Levothyroxine Sodium [Synthroid] 12.5 mg PO DAILYTHY 06/18/16 [Last Taken ] Lipase/Protease/Amylase [Zenpep Dr 5,000 Units Capsule] 0 cap PO QIDWMHS [Last Taken 11/21/17] Clonidine HCl [Catapres] 0.1 mg PO BID PRN 11/19/16 [Last Taken 11/21/17] Diphenoxylate HCl/Atropine [Lomotil 2.5-0.025 mg Tablet] 1 each PO 5XD 11/19/16 [Last Taken Unknown] Furosemide [Lasix] 40 mg PO BID 11/19/16 [Last Taken 11/21/17] Acetaminophen with Codeine [Tylenol with Codeine #3 Tablet] 1 tab PO Q6HR PRN [Last Taken Unknown] Calcium Carbonate/Vitamin D3 [Calcium 600 + Vit D Tablet] 1 each PO DAILY [Last Taken 11/21/17] Amlodipine Besylate [Norvasc] 10 mg PO QHS 11/22/17 [Last Taken Unknown] Carboxymethylcellulos/Glycerin [Refresh Optive Gel Eye Drops] 1 drop OPTH BID [Last Taken Unknown] Cefdinir 300 mg PO BID #16 capsule 11/25/17 [Last Taken Unknown] Discharge Plan - Discharge Instructions Activity at Discharge: Resume Usual Activities As Tolerated Diet at Discharge: Low Salt Diet (fluid restriction 1500-2000cc) Instructions: Cefdinir (By mouth), Heart Failure (DC) Additional Instructions: 2 Activity: Resume Usual Activities As Tolerated 2 Diet: Low Salt Diet 2 Consults: [] 2 Follow Up: [] 2 Dressing/Wound Care: (Type) (Change) 2 Additional: [] Follow up with Dr. Hale. CARDIOLOGY FOLLOW UP Saturday AT 230PM Follow up with Dr. Shah. FOLLOW UP Saturday AT 400PM Continue cefdinir 300mg by mouth twice daily. Your next dose will be tonight Continue lasix 40mg by mouth twice daily continue diet between 1500-2000ml fluid restriction until you see Dr. Hale May use nebulizer as needed for shortness of breath every 4 hours Please call with any questions or concerns Return to ED for any new or worsening symptoms [facility] ([phone]) will be contacting you 11/26/17 to set up a time to deliver your nebulizer and medications. Call them if you have any questions or concerns about your order. Quality Measures - Quality Measures Quality Measures: Atrial Fibrillation & Atrial Flutter: Chronic Anticoagulation Therapy, Advance Directives, Documentation of Current Medications in Medical Record, Elder Maltreatment Screen and Follow-Up Plan, Heart Failure, Screening for High Blood Pressure and F/U Documented - Current Medications Quality Measure: Measure #130: Documentation of Current Medications Documentation of Current Medications: <Current Medications Documented/Reviewed> [O2699] - Blood Pressure Screening Quality Measure: Screening for High Blood Pressure and Follow-Up Documented Does Patient Have Any of the Following: Active Dx of HTN Blood Pressure Classification: Pre-Hypertensive BP Reading Systolic Measurement: 130 Diastolic Measurement: 53 Screening for High Blood Pressure: Patient Exclusion, Hx of HTN [R7994] - Atrial Fibrillation and Atrial Flutter Quality Measure: Atrial Fibrillation & Atrial Flutter: Chronic Anticoagulation Therapy Does Patient Have Any of the Following: No CHADS2 Risk Stratification: Hypertension, Diabetes Mellitus, Heart Failure or Impaired LVSF Risk Stratification Summary: One or more high risk factors OR more than one moderate risk factor exists. [G8972] Anticoagulation Therapy: <Oral anticoagulant Prescribed> [A8967] - Heart Failure (KIRSTIN/ARB Therapy) Quality Measure: Heart Failure Left Ventricular Systolic Function: Moderately or Severely Depressed LVSF [3021F ] KIRSTIN Inhibitor or ARB Therapy for LVSD: <KIRSTIN Inhibitor or ARB therapy prescribed or currently taken> [4010F] - Heart Failure (Beta-leigha Therapy) Quality Measure: Heart Failure Left Ventricular Systolic Function: Moderately or Severely Depressed LVSF [3021F ] Beta-Leigha Therapy for LVEF < 40%: <Beta-Leigha Therapy Prescribed> [B8450] - Advance Directives Quality Measure: Measure #47: Care Plan Advance Directives Established: No Advance Directives Information Provided To Patient: Already Provided Advance Directives on File: No Living Will: No Power of Heavy Truck Technician: No Advance Care Planning: <Care Plan/Decision Maker Not Decided; Discussed & Documented> [3104F] - Elder Abuse Suspicion Index Screening: Elder Abuse Suspicion Index Screening Rely on people for bathing, dressing, shopping, banking, etc: No Prevented from getting food, clothes, medication, etc: No Made to feel shamed or threatened by someone: No Forced to sign papers or use money against will: No Feel afraid, touched in ways not wanted or hurt physically: No Poor eye contact, withdrawn, malnourished, cuts or bruises: No Screening Result: Negative result EASI Reference Information: Lindsey CRUZ, Nohelia Patricio, Viktor Wood, Qasim Rosales.Development and validation of a tool to assist physicians identification of elder abuse: The Elder Abuse Suspicion Index (EASI ). Journal of Elder Abuse and Neglect, 2008; 20 (3): 276-300. - Elder Maltreatment Screen Quality Measures: Elder Maltreatment Screen and Follow-Up Plan Elder Maltreatment Screen: <Negative, No Follow-Up Plan Required> [G8734]
[2017-11-25] MEDS: [UNRECOGNIZED DRUG - REMARK] PO SCH ×2 (08:09→12:12)
[2017-11-25] MEDS: NOVOLOG FLEXPEN (INSULIN ASPART) 100 UNITS/ML SQ SCH ×2 (08:11→12:11)
[2017-11-25] MEDS: CEFTRIAXONE SODIUM 1 GM in 0.9 % SODIUM CHLORIDE 100ML 100 ML IVPB SCH (09:24)
[2017-11-25] MEDS: CARBOXYMETHYLCELLULOSE SODIUM OP SCH (09:25)
[2017-11-25] MEDS: CARVEDILOL 12.5 MG TABLET PO SCH (09:25)
[2017-11-25] MEDS: BRIMONIDINE TARTRATE OP SCH (09:25)
[2017-11-25] MEDS: ASPIRIN 81 MG TABEC PO SCH (09:26)
[2017-11-25] MEDS: POTASSIUM CHLORIDE 20 MEQ TABLET PO SCH (09:26)
[2017-11-25] MEDS: APIXABAN 5MG TABLET PO SCH (09:26)
[2017-11-25] MEDS: Non-Formulary MISC (Cyclosporine [Restasis] 1 EACH) OP SCH (09:26)
[2017-11-25] MEDS: LEVEMIR FLEXTOUCH 100 UNIT/ML INSULIN PEN SQ SCH (09:27)
[2017-11-25] MEDS: FUROSEMIDE 40 MG TABLET PO SCH ×2 (09:27→16:34)
[2017-11-25] MEDS: LOSARTAN POTASSIUM 100 MG TABLET PO SCH (09:29)
[2017-11-25] MEDS: PITAVASTATIN CALCIUM 4 MG PO SCH (09:32)
--- NOTE | 2017-11-25 10:03 | Rehab Evaluation ---
Patient Information - Patient Information Diagnosis: Hypoxia, CAP, nausea Ordered Treatment: PT Evaluate and Treat Status: Initial Evaluation History: Detail (The patient presented in ED on 11/21/17 for managment of hypoxia and was transferred to the inpatient floor.) Past Medical/Surgical Hx: PAST MEDICAL/SURGICAL HISTORY Past Surgical History gallbladder bladder sling hysterectomy carpal tunnel x3 rt lower leg surgery from trauma incident cardiac ablasion PMH - Respiratory Hx Respiratory Disorders Yes Hx Asthma Yes PMH - Cardiovascular Hx Cardiovascular Disorders Yes Hx Congestive Heart Failure Yes Hx Hypertension Yes Hx Irregular Heartbeat Yes: A-fib Hx Palpitations Yes Comment: skips beat PMH - Neuro Hx Neurological Disorders No PMH - GI Hx Gastrointestinal Disorders Yes Hx Gastroesophageal Reflux Yes Comment: trouble with gastric enzymes PMH - Hx Genitourinary Disorders No PMH - Endocrine Hx Endocrine Disorders Yes Hx Diabetes Yes: type 2 with insulin Hx Thyroid Disease Yes: hypo PMH - Musculoskeletal Hx Musculoskeletal Disorders Yes Hx Arthritis Yes Hx Osteoporosis Yes PMH - Psych Hx Psychiatric Problems No PMH - Hematology/Oncology Hx Hematology/Oncology Yes Disorders Hx Bruising Yes Premorbid Status: Detail (The patient was ambulatory household distances with wide base single point cane and distances with 4 wheeled walker.) Social History: Detail (The patient lives in a one story home with spouse with a ramp. The patient's bathroom is equipped with a walk in shower with a chair and one grab bar and an elevated toilet seat. The patient and her spouse share household tasks. The patient has awheeled walker and a cane with wide base of support. The patient was not using O2 at home.) Precautions: [place] - Time With Patient Total Time Spent With Patient (Min): 20 Treatment Procedures: Detail (Initial Evaluation.) Subjective Information - Subjective Information Per Patient (The patient had no complaints of pain, just overall weakness.) Objective Data - Mental Status Patient Orientation: Oriented x3 - Visual Perception Appears within normal limits for therapeutic activities - ROM Within normal limits (UE and LE AROM is WFL.) - Strength/Tone Not within normal limits (The patient's UE strength is 4/5 shoulder flexors/ abductors , elbow musculature and garden worker 4+to 5/5. LE strength : hip flexors 3+/5 , hip abductors/adductors 4-/5, knee and ankle musculature 4+ to 5/5.) - Bed Mobility Independent (The patient is independent with supine to and from sit transfer.) - Transfers Independent (Independent with sit to and from stand transfer.) - Balance Balance Sitting: Good Balance Standing: Good - Gait Detail (The patient ambulated with 4 wheeled walker independently a distance of 80 feet x 1. No shortness of breath was noted, however the patient required a brief rest period due to fatigue.) Therapy Assessment - Therapy Assessment Detail (The patient is independent with all mobility and ambulation. The patient presents with primarily proximal weakness ( shoulders and hips). The patient does not require ongoing PT at this time.) Problem List - Problem List Physical Therapy Problem List: Detail (1) Proximal UE and LE weakness) Goals - Goals Physical Therapy Goals: The patient is independent with mobility and does not require ongoing PT services at this time. Prognosis - Prognosis Good (Excellent for return to home.) Plan - Plan Physical Therapy Plan: No ongoing PT is required due to the patient is independent with all mobility and ambulation.
== END 2017-11-25 17:17 | disposition home or self-care (01) | DRG 292 ==
LOC: ER 21:00 → MEDSURG 23:36
PROVIDERS: ADMIT Internal Medicine; ATTEND Internal Medicine
DX: J18.9 Pneumonia, unspecified organism (principal); I48.91 Unspecified atrial fibrillation; I50.23 Acute on chronic systolic (congestive) heart failure; I50.9 Heart failure, unspecified; N30.00 Acute cystitis without hematuria; I48.2 Chronic atrial fibrillation; Z79.01 Long term (current) use of anticoagulants; E03.9 Hypothyroidism, unspecified; I10 Essential (primary) hypertension; Z87.891 Personal history of nicotine dependence; E11.9 Type 2 diabetes mellitus without complications; Z79.4 Long term (current) use of insulin; Z78.9 Other specified health status
CPT/HCPCS: 36416; 71046; 80053; 81001; 82310; 82948; 83605; 83880; 84443; 84484; 85025; 85027; 87400; 93005; 93010; 93041; 93306; 94010; 94620; 94640; 94660; 94760; 94761; 96365; 96375; 99223; 99233; 99239; 99285; J1940; J1956; J7030; J7613

== ENCOUNTER 2018-04-09 04:34 | Emergency (ER) | payer MEDICARE, OTHER ==
[2018-04-09] MEDS ORDERED: CLINDAMYCIN 600MG/50ML PREMIX 600 MG/50 ML BAG IVPB ONE (05:09)
--- NOTE | 2018-04-09 05:15 | Emergency Department Record ---
History of Present Illness - General Chief complaint: Lower Extremity Pain Stated complaint: PAIN Time Seen by Provider: 04/09/18 05:08 Source: Patient Mode of Arrival: Ambulatory Limitations: No limitations - History of Present Illness Initial comments: 72 yo female presents to ED for evaluation of pain and redness to the left medial lower extremity. Patient denies recent injury, but reports that her pain symptoms from neuropathy have worsened this morning and the area is very painful to light touch according to the patient. Patient denies fevers, chills , or recent illness. Patient does take Eliquis as well, denies history of DVT. Patient reports taking Lyrica 100 mg this morning but reports that she takes 200-300 mg if her pain symptoms worsen. MD Complaint: Extremity pain Onset/Timin -: Hour(s) Location: Left, Lower Leg Severity scale (1-10): 10 Quality: Sharp, Stabbing Consistency: Intermittent Improves with: Nothing Worsens with: Nothing Associated Symptoms: Denies other symptoms - Related Data Previous Rx's Medication Instructions Recorded Clindamycin HCl 300 mg PO Q6H #40 capsule 04/09/18 Allergies Allergy/AdvReac Type Severity Reaction Status Date / Time hydrocodone bitartrate Allergy Unknown RASH Unverified 03/06/18 12:48 [From VICODIN] hydromorphone HCl Allergy Unknown NAUSEA AND Unverified 03/06/18 12:48 [From DILAUDID] VOMITING morphine [MORPHINE] Allergy Unknown NAUSEA AND Unverified 03/06/18 12:48 VOMITING Travel Screening - Travel/Exposure Within Last 30 Days Have you traveled within the last 30 days?: No Review of Systems Constitutional: Denies: Chills, Fever, Malaise, Night sweats Eyes: Denies: Eye discharge, Eye pain ENT: Denies: Congestion, Ear pain, Epistaxis Respiratory: Denies: Cough, Dyspnea Cardiovascular: Denies: Chest pain, Dyspnea on exertion Endocrine: Denies: Fatigue, Heat or cold intolerance Gastrointestinal: Denies: Abdominal pain, Nausea, Vomiting Genitourinary: Denies: Incontinence, Retention Musculoskeletal: Reports: Myalgia. Denies: Arthralgia, Back pain, Gout, Joint swelling Skin: Reports: Change in color, Rash. Denies: Bruising Neurological: Denies: Abnormal gait, Confusion, Headache, Seizure Psychiatric: Denies: Anxiety Hematological/Lymphatic: Reports: Easy bleeding, Easy bruising. Denies: Anemia , Blood Clots Past Medical History - SOCIAL HISTORY Smoking Status: Former smoker Alcohol Use: None Drug Use: None - RESPIRATORY Hx Respiratory Disorders: Yes Hx Asthma: Yes - CARDIOVASCULAR Hx Cardio Disorders: Yes Hx CHF: Yes Hx Hypertension: Yes Hx Irregular Heartbeat: Yes (A-fib) Hx Palpitations: Yes Comment:: skips beat - NEURO Hx Neuro Disorders: No - GI Hx GI Disorders: Yes Hx Reflux: Yes Comment:: trouble with gastric enzymes - Hx Genitourinary Disorders: No - ENDOCRINE Hx Endocrine Disorders: Yes Hx Diabetes: Yes (type 2 with insulin) Hx Thyroid Disease: Yes (hypo) - MUSCULOSKELETAL Hx Musculoskeletal Disorders: Yes Hx Arthritis: Yes Hx Osteoporosis: Yes - PSYCH Hx Psych Problems: No - HEMATOLOGY/ONCOLOGY Hx Hematology/Oncology Disorders: Yes Hx Bruising: Yes Family Medical History Any Significant Family History?: Yes Hx Diabetes: Father, Mother, Brother/Sister Hx Heart Disease: Mother Hx Resp Disorders: Father Physical Exam - General General Appearance: Alert, Oriented x3, Cooperative, Mild distress Limitations: No limitations - Head Head exam: Atraumatic, Normocephalic, Normal inspection Head exam detail: negative: Abrasion, Contusion, Mane's sign, General tenderness, Hematoma, Laceration - Eye Eye exam: Normal appearance. negative: Conjunctival injection, Periorbital swelling, Periorbital tenderness, Scleral icterus - ENT Ear exam: negative: Auricular hematoma, Auricular trauma Nasal Exam: negative: Active bleeding, Discharge, Dried blood, Foreign body Mouth exam: negative: Drooling, Laceration, Muffled voice, Tongue elevation - Neck Neck exam: Normal inspection. negative: Meningismus, Tenderness - Respiratory Respiratory exam: Normal lung sounds bilaterally. negative: Rales, Respiratory distress, Rhonchi, Stridor - Cardiovascular Cardiovascular Exam: Regular rate, Normal rhythm, Normal heart sounds - GI/Abdominal GI/Abdominal exam: Soft. negative: Rebound, Rigid, Tenderness - Rectal Rectal exam: Deferred - exam: Deferred - Extremities Extremities exam: Tenderness, Other (Small area of induration (1.5 cm) without fluctuance is present to the left medial lower extremity with mild surrounding warmth and erythema c/w possible early abscess and surrounding cellulitis. ). negative: Calf tenderness, Pedal edema - Back Back exam: Denies: CVA tenderness (R), CVA tenderness (L) - Neurological Neurological exam: Alert, Normal gait, Oriented X3 - Psychiatric Psychiatric exam: Normal affect, Normal mood - Skin Skin exam: Normal color. negative: Abrasion Type of lesion: negative: abrasion Course Vital Signs 04/09/18 04:43 Temperature 97.8 F Pulse Rate [ 63 Pulse Ox Probe] Respiratory 20 Rate Blood Pressure 138/77 [Left Arm] Pulse Ox 97 - Reevaluation(s) Reevaluation #1: 04/09/18 05:40 Labs reviewed and are grossly unremarkable for an acute process. Patient was updated on all results, appears stable for discharge at this time with outpatient treatment for probable cellulitis of the lower extremity and 48- hour follow-up with her PCP. Medical Decision Making - Lab Data Result diagrams: 04/09/18 05:15 04/09/18 05:15 Disposition Disposition: Discharge Clinical Impression: Cellulitis of lower extremity Qualifiers: Laterality: left Qualified Code(s): L03.116 - Cellulitis of left lower limb Disposition: Home, Self-Care Condition: (2) Stable Instructions: Cellulitis (ED) Additional Instructions: Return to ED if your symptoms worsen or if you have any concerns. Clindamycin as directed. Follow-up with Dr. Shah in 1-3 days as directed. Prescriptions: Clindamycin HCl 300 mg PO Q6H #40 capsule Forms: Patient Portal Access Time of Disposition: 05:41 Quality - Quality Measures Quality Measures: N/A - Blood Pressure Screening Does Patient Have Any of the Following: No Blood Pressure Classification: Pre-Hypertensive BP Reading Systolic Measurement: 138 Diastolic Measurement: 77 Screening for High Blood Pressure: < Pre-Hypertensive BP, F/U Documented > [ [id number]] Pre-Hypertensive Follow-up Interventions: Referral to alternative/primary care provider.
[2018-04-09 05:23] LABS: HEMOGLOBIN 11.7 gm/dl (11.6-16.0); MEAN CELL VOLUME 76.4 fl (81-97); MEAN CORPUSCULAR HEMOGLOBIN 24.2 pg (27-33); MEAN CORPUSCULAR HGB CONC 31.6 g/dl (32-36); MEAN PLATELET VOLUME 9.6 fl (7.4-10.4); PLATELET COUNT 203 K/uL (130-400); RED BLOOD COUNT 4.84 M/uL (3.80-5.40); RED CELL DISTRIBUTION WIDTH 14.4 % (11.5-14.5); WHITE BLOOD COUNT W/O DIFF 8.1 K/uL (4.2-12.2)
[2018-04-09 05:33] LABS: BLOOD UREA NITROGEN 18 mg/dL (8-23); CREATININE 0.9 mg/dL (0.5-0.9); EST GLOMERULAR FILTRATION RATE > 60 mL/min
[2018-04-09 05:35] LABS: GLUCOSE,RANDOM 136 mg/dL (74-109)
[2018-04-09 05:38] LABS: ALB/GLOB RATIO 1.5 (1.1-1.8); ALBUMIN 4.2 g/dL (4.0-5.0); ALKALINE PHOSPHATASE 88 U/L (35-104); ALT/SGPT 15 U/L (<33); AST/SGOT 17 U/L (10.0-35.0)
== END 2018-04-09 06:00 | disposition home or self-care (01) ==
LOC: ER 04:34
DX: L03.116 Cellulitis of left lower limb (principal); I10 Essential (primary) hypertension; E11.9 Type 2 diabetes mellitus without complications; I48.91 Unspecified atrial fibrillation; I50.9 Heart failure, unspecified; Z86.718 Personal history of other venous thrombosis and embolism; Z79.01 Long term (current) use of anticoagulants; Z87.891 Personal history of nicotine dependence
CPT/HCPCS: 80053; 85027; 96365; 96366; 99284

== ENCOUNTER 2018-04-27 09:52 | Emergency (ER) | payer MEDICARE, OTHER ==
--- NOTE | 2018-04-27 10:49 | Emergency Department Record ---
History of Present Illness - General Chief complaint: Extremity Problem Stated complaint: L LEG INJURY Time Seen by Provider: 04/27/18 10:25 Source: Patient, RN notes reviewed Mode of Arrival: Wheelchair - History of Present Illness Initial comments: left lower leg pain and she fell on her left leg twice and very swollen and ecchymotic. Pulse is present in the Posterior tibial area of ankle strength same as the other foot. Patient is using tylenol #3 two every 5-6 hours. She also had cellulitis about 2 weeks and she finished a course of clindamycin through the [facility]. The patient is worried the cellulitis is coming back and it is more bruising than cellulitis but will start on doxy 100 mg bid in case the cellulitis is coming back. Patient is on elliquis and asa for atrial fib and CAD Onset/Timin -: Week(s) Location: Left, Lower Leg History of Same: Yes Severity scale (1-10): 10 Quality: Sharp Consistency: Constant Improves with: Nothing Worsens with: Walking, Weight bearing - Related Data Previous Rx's Medication Instructions Recorded Doxycycline Monohydrate 100 mg PO BID #20 tablet 04/27/18 Allergies Allergy/AdvReac Type Severity Reaction Status Date / Time hydrocodone bitartrate Allergy Unknown RASH Verified 04/27/18 10:03 [From VICODIN] hydromorphone HCl AdvReac Unknown NAUSEA AND Verified 04/27/18 10:03 [From DILAUDID] VOMITING morphine [MORPHINE] AdvReac Unknown NAUSEA AND Verified 04/27/18 10:03 VOMITING Travel Screening - Travel/Exposure Within Last 30 Days Have you traveled within the last 30 days?: No - Travel/Exposure Within Last Year Have you traveled outside the [place] in the last year?: No - Additonal Travel Details Have you been exposed to anyone with a communicable illness?: No - Travel Symptoms Symptom Screening: None Review of Systems Reviewed: No additional complaints except as noted below Constitutional: Reports: As per HPI. Denies: Chills, Fever, Malaise, Night sweats, Weakness, Weight change Eyes: Reports: As per HPI. Denies: Eye discharge, Eye pain, Photophobia, Vision change ENT: Reports: As per HPI. Denies: Congestion, Dental pain, Ear pain, Epistaxis , Hearing loss, Throat pain Respiratory: Reports: As per HPI. Denies: Cough, Dyspnea, Hemoptysis, Stridor, Wheezes Cardiovascular: Reports: As per HPI. Denies: Arrhythmia, Chest pain, Dyspnea on exertion, Edema, Murmurs, Orthopnea, Palpitations, Paroxysmal nocturnal dyspnea, Rheumatic Fever, Syncope Endocrine: Reports: As per HPI. Denies: Fatigue, Heat or cold intolerance, Polydipsia, Polyuria Gastrointestinal: Reports: As per HPI. Denies: Abdominal pain, Constipation, Diarrhea, Hematemesis, Hematochezia, Melena, Nausea, Vomiting Genitourinary: Reports: As per HPI. Denies: Abnormal menses, Discharge, Dyspareunia, Dysuria, Frequency, Hematuria, Incontinence, Retention, Urgency Musculoskeletal: Reports: As per HPI, Other (leg pain). Denies: Arthralgia, Back pain, Gout, Joint swelling, Myalgia, Neck pain Skin: Reports: As per HPI. Denies: Bruising, Change in color, Change in hair/ nails, Lesions, Pruritus, Rash Neurological: Reports: As per HPI. Denies: Abnormal gait, Confusion, Headache, Numbness, Paresthesias, Seizure, Tingling, Tremors, Vertigo, Weakness Psychiatric: Reports: As per HPI. Denies: Anxiety, Auditory hallucinations, Depression, Homicidal thoughts, Suicidal thoughts, Visual hallucinations Hematological/Lymphatic: Reports: As per HPI. Denies: Anemia, Blood Clots, Easy bleeding, Easy bruising, Swollen glands Past Medical History - SOCIAL HISTORY Smoking Status: Former smoker Alcohol Use: None Drug Use: None - RESPIRATORY Hx Respiratory Disorders: Yes Hx Asthma: Yes - CARDIOVASCULAR Hx Cardio Disorders: Yes Hx CHF: Yes Hx Hypertension: Yes Hx Irregular Heartbeat: Yes (A-fib) Hx Palpitations: Yes Comment:: skips beat - NEURO Hx Neuro Disorders: No - GI Hx GI Disorders: Yes Hx Reflux: Yes Comment:: trouble with gastric enzymes - Hx Genitourinary Disorders: No - ENDOCRINE Hx Endocrine Disorders: Yes Hx Diabetes: Yes (type 2 with insulin) Hx Thyroid Disease: Yes (hypo) - MUSCULOSKELETAL Hx Musculoskeletal Disorders: Yes Hx Arthritis: Yes Hx Osteoporosis: Yes - PSYCH Hx Psych Problems: No - HEMATOLOGY/ONCOLOGY Hx Hematology/Oncology Disorders: Yes Hx Bruising: Yes Family Medical History Any Significant Family History?: Yes Hx Diabetes: Father, Mother, Brother/Sister Hx Heart Disease: Mother Hx Resp Disorders: Father Physical Exam - General General Appearance: Alert, Oriented x3, Cooperative, No acute distress - Head Head exam: Normal inspection - Eye Eye exam: Normal appearance, PERRL Pupils: Normal accommodation - ENT ENT exam: Normal exam, Mucous membranes moist, Normal external ear exam, Normal orophraynx, TM's normal bilaterally Ear exam: Normal external inspection. negative: External canal tenderness Nasal Exam: Normal inspection. negative: Discharge, Sinus tenderness Mouth exam: Normal external inspection, Tongue normal Teeth exam: Normal inspection. negative: Dental caries Throat exam: Normal inspection. negative: Tonsillar erythema, Tonsillar exudate - Neck Neck exam: Normal inspection, Full ROM. negative: Tenderness - Respiratory Respiratory exam: Normal lung sounds bilaterally. negative: Respiratory distress - Cardiovascular Cardiovascular Exam: Regular rate, Normal rhythm, Normal heart sounds - GI/Abdominal GI/Abdominal exam: Soft, Normal bowel sounds. negative: Tenderness - Rectal Rectal exam: Deferred - exam: Deferred - Extremities Extremities exam: Normal inspection, Full ROM, Normal capillary refill, Tenderness (ecchymosis and edema of the lower leg) - Back Back exam: Reports: Normal inspection, Full ROM. Denies: Muscle spasm, Rash noted, Tenderness - Neurological Neurological exam: Alert, Normal gait, Oriented X3, Reflexes normal - Psychiatric Psychiatric exam: Normal affect, Normal mood - Skin Skin exam: Dry, Intact, Normal color, Warm Course Vital Signs 04/27/18 10:05 Temperature 98.5 F Pulse Rate 64 Respiratory 18 Rate Blood Pressure 114/49 Pulse Ox 96 - Reevaluation(s) Reevaluation #1: reviewed her knee and lower leg xray and from 04/21/2018 and 04/24/2018 and both neg for fractures 04/27/18 10:50 Reevaluation #2: talked to patient about if the swelling gets to tight she would need surgery on her leg and that is done at [facility]. Very important to elevate her leg 04/27/18 10:54 Disposition Clinical Impression: Left leg pain Contusion Qualifiers: Encounter type: subsequent encounter Contusion area: lower leg Laterality: left Qualified Code(s): S80.12XD - Contusion of left lower leg, subsequent encounter Disposition: Home, Self-Care Condition: (1) Good Instructions: Contusion in Adults (ED) Additional Instructions: elevate leg see Dr. Preston in 2-3 days if worse go to [facility] ED for evaluation start doxy 100 mg bid stop asa for one week Prescriptions: Doxycycline Monohydrate 100 mg PO BID #20 tablet Time of Disposition: 10:55 Quality - Quality Measures Quality Measures: N/A - Blood Pressure Screening Does Patient Have Any of the Following: No Blood Pressure Classification: Normal BP Reading Systolic Measurement: 114 Diastolic Measurement: 49 Screening for High Blood Pressure: < Normal BP, F/U Not Required > [G8783]
[2018-04-27] MEDS: DOXYCYCLINE HYCLATE 100 MG CAPSULE PO ONE (11:14)
== END 2018-04-27 11:21 | disposition home or self-care (01) ==
LOC: ER 09:52
DX: S80.12XA Contusion of left lower leg, initial encounter (principal); I50.9 Heart failure, unspecified; I10 Essential (primary) hypertension; I48.91 Unspecified atrial fibrillation; E11.9 Type 2 diabetes mellitus without complications; Z87.891 Personal history of nicotine dependence; Z79.4 Long term (current) use of insulin; Z79.01 Long term (current) use of anticoagulants; W19.XXXA Unspecified fall, initial encounter
CPT/HCPCS: 99283

== ENCOUNTER 2018-05-21 09:18 | Inpatient (IN) | payer MEDICARE, OTHER ==
[2018-05-21] MEDS ORDERED: IPRATROPIUM/ALBUTEROL (0.5MG/3MG) NEB INH ONE (09:31)
--- NOTE | 2018-05-21 09:37 | Emergency Department Record ---
History of Present Illness - General Chief Complaint: Difficulty Breathing Stated Complaint: TRAVIS Time Seen by Provider: 05/21/18 09:31 Source: Patient Mode of Arrival: Ambulatory Limitations: No limitations - History of Present Illness Initial Comments: 72 yo female presents to ED for evaluation of worsening TRAVIS for the past several days. Patient reports a history of asthma and ? CHF, denies recent fevers, chills, or illness. Patient does report nonproductive cough symptoms, denies chest discomfort or worsening lower extremity edema. MD Complaint: Shortness of breath Onset/Timin -: Week(s) Severity: Moderate Consistency: Constant Improves With: Nothing Worsens With: Coughing, Exertion Known History Of: Asthma Associated Symptoms: Denies other symptoms Treatments Prior to Arrival: None - Related Data Home Oxygen Therapy: No Home Medications Medication Instructions Recorded Confirmed Last Taken Gabapentin [Neurontin] 100 mg PO QID 05/21/18 05/21/18 Unknown Allergies Allergy/AdvReac Type Severity Reaction Status Date / Time hydrocodone bitartrate Allergy Unknown RASH Verified 04/27/18 10:03 [From VICODIN] hydromorphone HCl AdvReac Unknown NAUSEA AND Verified 04/27/18 10:03 [From DILAUDID] VOMITING morphine [MORPHINE] AdvReac Unknown NAUSEA AND Verified 04/27/18 10:03 VOMITING Review of Systems Constitutional: Denies: Chills, Fever, Malaise, Night sweats Eyes: Denies: Eye discharge, Eye pain ENT: Denies: Congestion, Ear pain, Epistaxis Respiratory: Reports: Cough, Dyspnea Cardiovascular: Reports: Dyspnea on exertion, Edema. Denies: Chest pain Endocrine: Denies: Fatigue, Heat or cold intolerance Gastrointestinal: Denies: Nausea, Vomiting Genitourinary: Denies: Incontinence, Retention Musculoskeletal: Denies: Arthralgia, Back pain Skin: Denies: Bruising, Change in color Neurological: Denies: Abnormal gait, Confusion, Headache, Seizure Psychiatric: Denies: Anxiety Hematological/Lymphatic: Reports: Easy bleeding, Easy bruising. Denies: Anemia , Blood Clots Past Medical History - SOCIAL HISTORY Smoking Status: Former smoker Drug Use: None - RESPIRATORY Hx Respiratory Disorders: Yes Hx Asthma: Yes - CARDIOVASCULAR Hx Cardio Disorders: Yes Hx CHF: Yes Hx Hypertension: Yes Hx Irregular Heartbeat: Yes (A-fib) Hx Palpitations: Yes Comment:: skips beat - NEURO Hx Neuro Disorders: No - GI Hx GI Disorders: Yes Hx Reflux: Yes Comment:: trouble with gastric enzymes - Hx Genitourinary Disorders: No - ENDOCRINE Hx Endocrine Disorders: Yes Hx Diabetes: Yes (type 2 with insulin) Hx Thyroid Disease: Yes (hypo) - MUSCULOSKELETAL Hx Musculoskeletal Disorders: Yes Hx Arthritis: Yes Hx Osteoporosis: Yes - PSYCH Hx Psych Problems: No - HEMATOLOGY/ONCOLOGY Hx Hematology/Oncology Disorders: Yes Hx Bruising: Yes Family Medical History Hx Diabetes: Father, Mother, Brother/Sister Hx Heart Disease: Mother Hx Resp Disorders: Father Physical Exam - General General Appearance: Alert, Oriented x3, Cooperative, Moderate distress Limitations: No limitations - Head Head exam: Atraumatic, Normocephalic, Normal inspection Head exam detail: negative: Abrasion, Contusion, Mane's sign, General tenderness, Hematoma, Laceration - Eye Eye exam: Normal appearance. negative: Conjunctival injection, Periorbital swelling, Periorbital tenderness, Scleral icterus - ENT Ear exam: negative: Auricular hematoma, Auricular trauma Nasal Exam: negative: Active bleeding, Discharge, Dried blood, Foreign body Mouth exam: negative: Drooling, Laceration, Tongue elevation - Neck Neck exam: Normal inspection. negative: Meningismus, Tenderness - Respiratory Respiratory exam: Decreased breath sounds. negative: Respiratory distress, Rhonchi, Stridor - Cardiovascular Cardiovascular Exam: Regular rate, Normal rhythm, Normal heart sounds - GI/Abdominal GI/Abdominal exam: Soft. negative: Rebound, Rigid, Tenderness - Rectal Rectal exam: Deferred - exam: Deferred - Extremities Extremities exam: Normal inspection, Pedal edema (1+ bilaterally). negative: Calf tenderness, Tenderness - Back Back exam: Denies: CVA tenderness (R), CVA tenderness (L) - Neurological Neurological exam: Alert, Normal gait, Oriented X3 - Psychiatric Psychiatric exam: Normal affect, Normal mood - Skin Skin exam: Normal color. negative: Abrasion Type of lesion: negative: abrasion Course - Reevaluation(s) Reevaluation #1: 05/21/18 09:46 EKG: NSR 64 LBBB, QRS 163 No further analysis due to LBBB. Reevaluation #2: 05/21/18 10:28 Labs reviewed, WBC 12.7, Hgb 9.12 (previous 10-11.7 range). Labs are otherwise grossly unremarkable for an acute process. Reevaluation #3: 05/21/18 11:37 CXR: Cardiomegaly Pulmonary HTN Ground glass opacities to the marjan-hilar regions bilaterally, cannot exclude infiltrates Patient was updated on all results, oxcygenation has dropped to 86%, now on 2 L NC. Patient reports that she has become dyspnic with bending over and mild exertion at home, will admit for further evaluation. Reevaluation #4: 05/21/18 12:10 Case was discussed with Uyen Espinosa, will accept admission at this time. Medical Decision Making - Lab Data Result diagrams: 05/21/18 09:45 05/21/18 09:45 Disposition Disposition: Admit Clinical Impression: Hypoxia CAP (community acquired pneumonia) Qualifiers: Laterality: unspecified laterality Qualified Code(s): J18.9 - Pneumonia, unspecified organism Asthma Qualifiers: Asthma severity: unspecified severity Asthma persistence: persistent Asthma complication type: with acute exacerbation Qualified Code(s): J45.901 - Unspecified asthma with (acute) exacerbation Disposition: Still a Patient at [facility] Decision to Admit: Admit from ER Decision to Admit Date: 05/21/18 Decision to Admit Time: 11:40 Condition: (2) Stable Time of Disposition: 11:40 Quality - Quality Measures Quality Measures: N/A - Blood Pressure Screening Does Patient Have Any of the Following: Active Dx of HTN Blood Pressure Classification: Pre-Hypertensive BP Reading Systolic Measurement: 127 Diastolic Measurement: 48 Screening for High Blood Pressure: Patient Exclusion, Hx of HTN [G9744]
[2018-05-21 09:55] LABS: HEMATOCRIT 29.9 % (35.0-47.0); HEMOGLOBIN 9.1 gm/dl (11.6-16.0); MEAN CELL VOLUME 74.6 fl (81-97); MEAN CORPUSCULAR HGB CONC 30.4 g/dl (32-36); MEAN PLATELET VOLUME 10.3 fl (7.4-10.4); PLATELET COUNT 236 K/uL (130-400); RED BLOOD COUNT 4.01 M/uL (3.80-5.40); RED CELL DISTRIBUTION WIDTH 15.4 % (11.5-14.5); WHITE BLOOD COUNT W/O DIFF 12.7 K/uL (4.2-12.2)
[2018-05-21 09:56] LABS: MEAN CORPUSCULAR HEMOGLOBIN 22.6 pg (27-33)
[2018-05-21 10:06] LABS: BILIRUBIN,TOTAL 0.5 mg/dL (0.2-1.0); TOTAL PROTEIN 6.9 g/dL (6.6-8.7)
[2018-05-21 10:11] LABS: ALBUMIN 3.4 g/dL (4.0-5.0)
[2018-05-21] MEDS ORDERED: PREDNISONE 20 MG TAB PO ONE (10:53)
[2018-05-21] MEDS ORDERED: AZITHROMYCIN 500 MG TABLET PO ONE (10:53)
[2018-05-21] MEDS: ALBUTEROL SULFATE (0.083%) 2.5 MG/3 ML NEB INH ONE (10:59)
[2018-05-21] MEDS ORDERED: ALBUTEROL SULFATE (0.083%) 2.5 MG/3 ML NEB INH PRN (12:26)
[2018-05-21] MEDS ORDERED: CLONIDINE HCL 0.1 MG TABLET PO PRN (12:26)
[2018-05-21] MEDS ORDERED: 0.9 % SODIUM CHLORIDE 1000ML 1,000 ML IV PRN (12:26)
[2018-05-21] MEDS ORDERED: CEFTRIAXONE SODIUM 1 GM in 0.9 % SODIUM CHLORIDE 100ML 100 ML IVPB SCH (13:00)
[2018-05-21] MEDS: [UNRECOGNIZED DRUG - REMARK] PO SCH ×4 (13:14→21:36)
[2018-05-21] MEDS: DIPHENOXYLATE HCL/ATROP 2.5/0.025MG TABLET PO SCH ×3 (13:14→21:35)
[2018-05-21] MEDS: NOVOLOG FLEXPEN (INSULIN ASPART) 100 UNITS/ML SQ PRN ×3 (13:34→21:58)
[2018-05-21] MEDS: GABAPENTIN 100 MG CAPSULE PO SCH ×5 (13:59→21:37)
[2018-05-21] MEDS: IPRATROPIUM/ALBUTEROL (0.5MG/3MG) NEB INH SCH ×3 (14:20→22:37)
[2018-05-21] MEDS ORDERED: FUROSEMIDE IV 20MG/2ML VIAL IVP ONE (16:25)
--- NOTE | 2018-05-21 21:21 | History & Physical ---
History of Present Illness - Date of Service Date of Service for History & Physical: 05/21/18 - History of Present Illness Admitting Diagnosis: CAP. Hypoxia. Asthma exacerbation History of Present Illness: 72 year old female presents to ER for evaluation of progressively worsening SOB over the past week. Patient denies chest discomfort, fever, chills, nausea, vomiting, diarrhea, or increased lower extremity edema. Patient does report a nonproductive cough. Patient has a significant medical history which includes IDDM, CHF, A-fib ( daily Eliquis use), asthma, ex-smoker, HTN, hypothyroidism, GERD, chronic diarrhea, lower extremity edema, chronic pain, and anemia. Patient comes from home where she lives with her , ambulates with a cane. Patient had a previous admission 11/22/17 for vomiting, diarrhea, and CHF exacerbation. At that time an echo was completed which indicated an EF of 49% with aortic stenosis. Patient's clinical application specialist is Dr. Hale, who she has seen since that admission. ER Course: Labs: WBC 12.7, Hgb 9.12 (previous 10-11.7) CXR: Cardiomegaly, pulmonary HTN, ground glass opacities to the marjan-hilar regions bilaterally, cannot exclude infiltrates EKG: NSR 64, LBBB Patient had one episode of hypoxia with pulse ox dropping to 86% on RA with no exertion, was placed on 2L oxygen via NC and oxygen saturation in the high 90's since then. She received 1 dose of Zithromax, Rocephin, and Prednisone in ER PCP Lu[facility]ia Staff Radiologist Alexia Cancer Genetics Assistant: [facility] 05/21/18: Patient alert and oriented x 4, resting comfortably in bed, at bedside. Patient is on 2L oxygen via NC at this time, pulse ox high 90's, no acute distress. BNP elevated at 3401. Patient will be given 40mg Lasix IVP in addition to her daily lasix dose. Daily weight, I&O and fluid restrictions ordered. Will not repeat ECHO at this time as it was just completed 11/22/17. Zithromax and Rocephin continued at this time as CAP cannot yet be ruled out. Travel Screening - Travel/Exposure Within Last 30 Days Have you traveled within the last 30 days?: No - Travel/Exposure Within Last Year Have you traveled outside the [place] in the last year?: No - Additonal Travel Details Have you been exposed to anyone with a communicable illness?: No - Travel Symptoms Symptom Screening: None Review of Systems Constitutional: Reports: As per HPI. Denies: Chills, Fever, Malaise, Night sweats Eyes: Denies: Eye discharge, Eye pain ENT: Reports: As per HPI. Denies: Congestion, Ear pain, Epistaxis Respiratory: Reports: Cough, Dyspnea Cardiovascular: Reports: As per HPI, Dyspnea on exertion, Edema. Denies: Chest pain Endocrine: Reports: As per HPI. Denies: Fatigue, Heat or cold intolerance Gastrointestinal: Reports: As per HPI, Diarrhea (chronic). Denies: Nausea, Vomiting Genitourinary: Denies: Incontinence, Retention Musculoskeletal: Denies: Arthralgia, Back pain Skin: Denies: Bruising, Change in color Neurological: Reports: As per HPI. Denies: Abnormal gait, Confusion, Headache, Seizure Psychiatric: Denies: Anxiety Hematological/Lymphatic: Reports: Easy bleeding, Easy bruising. Denies: Anemia , Blood Clots Past Medical History - SOCIAL HISTORY Smoking Status: Former smoker Drug Use: None - RESPIRATORY Hx Respiratory Disorders: Yes Hx Asthma: Yes - CARDIOVASCULAR Hx Cardio Disorders: Yes Hx CHF: Yes Hx Hypertension: Yes Hx Irregular Heartbeat: Yes (A-fib) Hx Palpitations: Yes Comment:: skips beat - NEURO Hx Neuro Disorders: No - GI Hx GI Disorders: Yes Hx Reflux: Yes Comment:: trouble with gastric enzymes - Hx Genitourinary Disorders: No - ENDOCRINE Hx Endocrine Disorders: Yes Hx Diabetes: Yes (type 2 with insulin) Hx Thyroid Disease: Yes (hypo) - MUSCULOSKELETAL Hx Musculoskeletal Disorders: Yes Hx Arthritis: Yes Hx Osteoporosis: Yes - PSYCH Hx Psych Problems: No - HEMATOLOGY/ONCOLOGY Hx Hematology/Oncology Disorders: Yes Hx Bruising: Yes Family Medical History Hx Diabetes: Father, Mother, Brother/Sister Hx Heart Disease: Mother Hx Resp Disorders: Father H&P Meds/Allergies - Allergies Allergies: Allergies Allergy/AdvReac Type Severity Reaction Status Date / Time hydrocodone bitartrate Allergy Unknown RASH Verified 04/27/18 10:03 [From VICODIN] hydromorphone HCl AdvReac Unknown NAUSEA AND Verified 04/27/18 10:03 [From DILAUDID] VOMITING morphine [MORPHINE] AdvReac Unknown NAUSEA AND Verified 04/27/18 10:03 VOMITING - Home Medications Home Medications Medication Instructions Recorded Confirmed Last Taken Gabapentin [Neurontin] 100 mg PO QID 05/21/18 05/21/18 Unknown - Active Medications Active Medications: Current Medications Albuterol Sulfate () 2.5 mg INH RESP.Q2H PRN PRN Reason: DIFFICULTY IN BREATHING Last Admin: 05/21/18 19:12 Dose: 2.5 mg Albuterol/Ipratropium (Duoneb) 3 ml INH RESP.Q4H.[facility] Last Admin: 05/21/18 18:04 Dose: 3 ml Amlodipine Besylate (Norvasc) 10 mg PO QHS [facility] Lipase/Protease/Amylase (Pancrelipase 5,000 Dr Capsule) 1 each PO QIDWMHS [facility] Last Admin: 05/21/18 17:15 Dose: 1 each Apixaban (Eliquis) 5 mg PO BID [facility] Atorvastatin Calcium (Lipitor) 20 mg PO DAILY [facility] Azithromycin (Zithromax) 250 mg PO DAILY [facility] Carvedilol (Coreg) 25 mg PO BID [facility] Clonidine HCl (Catapres) 0.1 mg PO BID PRN PRN Reason: HYPERTENSIVE EMERGENCY Diphenoxylate HCl/Atropine (Lomotil) 1 udtab PO 5XD [facility] Last Admin: 05/21/18 17:15 Dose: 1 udtab Furosemide (Lasix) 40 mg PO BID [facility] Gabapentin (Neurontin) 100 mg PO QID [facility] Last Admin: 05/21/18 17:16 Dose: Not Given Ceftriaxone Sodium 1 gm/ (Sodium Chloride) 100 mls @ 100 mls/hr IVPB Q24H [facility] Stop: 05/26/18 13:01 Last Infusion: 05/21/18 14:48 Dose: Infused Insulin Aspart (Novolog Flexpen) 18 unit SQ QIDINS PRN PRN Reason: HYPERGLYCEMIA Last Admin: 05/21/18 17:44 Dose: 14 unit Insulin Detemir (Levemir Flextouch) 27 unit SQ BID [facility] Levothyroxine Sodium (Synthroid) 12,500 mcg PO DAILYTHY [facility] Losartan Potassium (Losartan Potassium) 100 mg PO DAILY [facility] Methylprednisolone Sodium Succinate (Solu-Medrol) 60 mg IVP DAILY [facility] Non-Formulary Medication (Bimatoprost [Lumigan]) 1 drop OP QHS [facility] Non-Formulary Medication (Brimonidine Tartrate [Alphagan P]) 1 drop OP Q8H [facility] Non-Formulary Medication (Cyclosporine [Restasis]) 1 each OP BID [facility] Non-Formulary Medication (Olopatadine Hcl [Patanol]) 1 ml OP BID [facility] Pantoprazole Sodium (Protonix) 40 mg PO QHS [facility] Potassium Chloride (Klor-Con) 20 meq PO BID [facility] Physical Exam - Vital Signs Vital Signs: Vital Signs - Last 24 Hrs Temp Pulse Pulse Resp BP BP Pulse Ox 05/21/18 19:23 78 16 94 L 05/21/18 19:17 78 16 05/21/18 18:05 82 20 05/21/18 16:18 61 24 05/21/18 16:00 99.0 F 62 18 128/61 94 L 05/21/18 14:28 64 24 96 05/21/18 14:24 60 24 05/21/18 14:21 60 24 96 05/21/18 12:10 98.1 F 61 20 122/48 92 L 05/21/18 11:53 98.1 F 60 20 127/48 95 05/21/18 11:38 95 05/21/18 11:01 70 24 94 L 05/21/18 10:59 98.1 F 61 20 123/53 90 L 05/21/18 09:50 74 20 92 L 05/21/18 09:25 98.0 F 67 20 129/95 92 L - General General Appearance: Alert, Oriented x3, Cooperative, Mild distress Limitations: No limitations - Head Head exam: Atraumatic, Normocephalic, Normal inspection Head exam detail: negative: Abrasion, Contusion, Mane's sign, General tenderness, Hematoma, Laceration - Eye Eye exam: Normal appearance. negative: Conjunctival injection, Periorbital swelling, Periorbital tenderness, Scleral icterus - ENT Ear exam: negative: Auricular hematoma, Auricular trauma Nasal Exam: Normal inspection. negative: Active bleeding, Discharge, Dried blood, Foreign body Mouth exam: Normal external inspection. negative: Drooling, Laceration, Tongue elevation - Neck Neck exam: Normal inspection. negative: Meningismus, Tenderness - Respiratory Respiratory exam: Decreased breath sounds (bases bilaterally). negative: Respiratory distress, Rhonchi, Stridor - Cardiovascular Cardiovascular Exam: Regular rate, Normal rhythm, Normal heart sounds Peripheral Pulses: 1+: Dorsalis Pedis (R), Dorsalis Pedis (L), 2+: Radial (R), Radial (L) - GI/Abdominal GI/Abdominal exam: Soft, Normal bowel sounds. negative: Rebound, Rigid, Tenderness - Rectal Rectal exam: Deferred - exam: Deferred - Extremities Extremities exam: Pedal edema (1+ bilaterally). negative: Calf tenderness, Tenderness - Back Back exam: Denies: CVA tenderness (R), CVA tenderness (L) - Neurological Neurological exam: Alert, Oriented X3 - Psychiatric Psychiatric exam: Normal affect, Normal mood - Skin Skin exam: Normal color. negative: Abrasion Type of lesion: negative: abrasion Results - Labs Result Diagrams: 05/21/18 09:45 05/21/18 09:45 Labs Last 24 Hours: Laboratory Results - last 24 hr 05/21/18 05/21/18 05/21/18 09:45 09:45 09:45 WBC 12.7 H RBC 4.01 Hgb 9.1 L Hct 29.9 L MCV 74.6 L MCH 22.6 L MCHC 30.4 L RDW 15.4 H Plt Count 236 MPV 10.3 Neutrophils % 65.0 Eosinophils % Not Reportable Basophils % Not Reportable Lymphocytes 12.0 L Monocytes 18.0 H Basophils 1.0 Eosinophil Count 4.0 Sodium 136 Potassium 4.6 H Chloride 96 L Carbon Dioxide 24.0 Anion Gap 16.0 BUN 20 Creatinine 1.0 H Estimated GFR 58 POC Glucose Random Glucose 213 H Calcium 9.5 Total Bilirubin 0.50 AST 11 ALT 14 Alkaline Phosphatase 114 H NT-Pro-B Natriuret Pep 3104.00 H Total Protein 6.9 Albumin 3.4 L Globulin 3.5 Albumin/Globulin Ratio 1.0 L 05/21/18 05/21/18 12:35 17:24 WBC RBC Hgb Hct MCV MCH MCHC RDW Plt Count MPV Neutrophils % Eosinophils % Basophils % Lymphocytes Monocytes Basophils Eosinophil Count Sodium Potassium Chloride Carbon Dioxide Anion Gap BUN Creatinine Estimated GFR POC Glucose 211 H 340 H Random Glucose Calcium Total Bilirubin AST ALT Alkaline Phosphatase NT-Pro-B Natriuret Pep Total Protein Albumin Globulin Albumin/Globulin Ratio VTE H&P Assessment - Risk for VTE Risk for VTE: Yes Risk Level: Moderate Risk Assessment Date: 05/21/18 Risk Assessment Time: 13:00 VTE Orders Placed or Will Be Placed: No VTE Reason for No Prophylaxis: Contraindicated (patient already on Eliquis 5mg BID) Plan - Inpatient Certification Inpatient Certification: Admit to inpatient care: Based on my medical assessment, after consideration of patient's risk factors (age, co-morbidities and patient presenting symptoms and acuity), I expect that this patient will remain in the hospital greater than or equal to two midnights and that the services needed warrant inpatient care because: Patient Risk Factors: [CHF, IDDM, A-fib, age] Estimated length of stay: [96 hours] The patient may reasonably be expected to be discharged or transferred to a hospital within 96 hours after admission to [facility]. Services needed: [cardiac monitoring, IV medications, PT/OT evaluation] Post hospital care (if known): [] I certify that my determination is in accordance with my understanding of Medicare requirements for reasonable and necessary inpatient services. 05/21/18 21:24 - Detailed Diagnosis and Plan (1) CHF (congestive heart failure) Current Visit: No Status: Acute Qualifiers: Qualified Code(s): I50.23 - Acute on chronic systolic (congestive) heart failure Base Code: I50.9 - HEART FAILURE, UNSPECIFIED Comment: 05/21/18: echo completed on 11/22/17 showing EF of 49% with aortic stenosis. Her BNP on admission was 3401. -Lasix 20mg IVP now, continue home dose of Lasix 40mg BID PO -Daily weights -I&O -Fluid restrictions (2) CAP (community acquired pneumonia) Current Visit: Yes Status: Acute Qualifiers: Laterality: unspecified laterality Qualified Code(s): J18.9 - Pneumonia, unspecified organism Base Code: J18.9 - PNEUMONIA, UNSPECIFIED ORGANISM Comment: 05/21/18: Chest x- ray completed today cannot exclude infiltrates. History of nonproductive cough , increased SOB, and increased dyspnea with exertion. WBC 12.7 -Will continue Rocephin and Zithromax -2L Oxygen to maintain pulse ox >92% -Will repeat CBC in the morning (3) Hypoxia Current Visit: Yes Status: Acute Base Code: R09.02 - HYPOXEMIA Comment: 05/21/18: One episode of hypoxia in ER, with pulse ox of 86% on RA -Oxygen via NC to maintain saturations >92% -VS q8h -Duoneb treatments q4h prn (4) DVT prophylaxis Current Visit: No Status: Acute Base Code: [id number] - Comment: 05/21/18- Patient is at increased risk with age, restricted mobility and history of afib. Pt. is being treated with Eliquis 5mg PO BID, will continue treatment while hospitalized (5) Full code status Current Visit: No Status: Acute Base Code: Z78.9 - OTHER SPECIFIED HEALTH STATUS Comment: 05/21/18- Pt. is full code status
[2018-05-21] MEDS: APIXABAN 5MG TABLET PO SCH (21:30)
[2018-05-21] MEDS: PANTOPRAZOLE SODIUM 40 MG TABLET PO SCH (21:30)
[2018-05-21] MEDS: FUROSEMIDE 40 MG TABLET PO SCH (21:30)
[2018-05-21] MEDS: POTASSIUM CHLORIDE 20 MEQ TABLET PO SCH (21:30)
[2018-05-21] MEDS: CARVEDILOL 12.5 MG TABLET PO SCH (21:31)
[2018-05-21] MEDS: AMLODIPINE BESYLATE 5MG TAB PO SCH (21:31)
[2018-05-21] MEDS: BIMATOPROST OP SCH (21:33)
[2018-05-21] MEDS: Non-Formulary MISC (Cyclosporine [Restasis] 1 EACH) OP SCH (21:33)
[2018-05-21] MEDS: OLOPATADINE HCL OP SCH (21:33)
[2018-05-21] MEDS: BRIMONIDINE TARTRATE OP SCH (21:33)
[2018-05-21] MEDS: LEVEMIR FLEXTOUCH 100 UNIT/ML INSULIN PEN SQ SCH (21:40)
[2018-05-22] MEDS: IPRATROPIUM/ALBUTEROL (0.5MG/3MG) NEB INH SCH ×5 (05:36→21:47)
[2018-05-22] MEDS: LEVOTHYROXINE SODIUM 50 MCG TABLET PO SCH (06:19)
[2018-05-22] MEDS: LEVOTHYROXINE SODIUM 25 MCG TABLET PO SCH (06:20)
[2018-05-22] MEDS: BRIMONIDINE TARTRATE OP SCH ×3 (06:21→21:38)
[2018-05-22] MEDS: DIPHENOXYLATE HCL/ATROP 2.5/0.025MG TABLET PO SCH ×5 (06:21→22:09)
[2018-05-22 07:18] LABS: HEMATOCRIT 30.7 % (35.0-47.0); HEMOGLOBIN 9.4 gm/dl (11.6-16.0); MEAN CELL VOLUME 73.8 fl (81-97); MEAN CORPUSCULAR HEMOGLOBIN 22.5 pg (27-33); MEAN CORPUSCULAR HGB CONC 30.6 g/dl (32-36); MEAN PLATELET VOLUME 10.5 fl (7.4-10.4); PLATELET COUNT 245 K/uL (130-400); RED BLOOD COUNT 4.16 M/uL (3.80-5.40); RED CELL DISTRIBUTION WIDTH 15.1 % (11.5-14.5); WHITE BLOOD COUNT W/O DIFF 13.4 K/uL (4.2-12.2)
[2018-05-22 07:42] LABS: HYPOCHROMIA 1+; PLATELET ESTIMATE NORMAL (NORMAL)
--- NOTE | 2018-05-22 07:47 | RADIOLOGY REPORT ---
EXAM: CHEST, TWO VIEWS HISTORY: WEAKNESS. DIFFICULTY IN BREATHING FOR ONE WEEK. TECHNIQUE: Upright PA and lateral views of the chest were obtained. Comparison: Two view chest radiographic examination dated 11/24/17. FINDINGS: The cardiac silhouette remains enlarged. There is borderline pulmonary venous hypertension. There are mixed reticular and ill defined nodular ground glass opacities now noted within the lungs. Diagnostic considerations include infiltrate and most likely edema. Previously demonstrated right costophrenic angle blunting has slightly improved. The lungs and pleural spaces are otherwise clear. There are degenerative changes of the visualized spine and shoulder girdles. IMPRESSION: 1. CARDIOMEGALY WITH BORDERLINE PULMONARY VENOUS HYPERTENSION. 2. MILD MIXED RETICULAR AND NODULAR GROUND GLASS OPACITIES SCATTERED IN EACH LUNG MOST PRONOUNCED IN THE PERIHILAR REGIONS. DIAGNOSTIC CONSIDERATIONS INCLUDE PNEUMONITIS AND LESS LIKELY EDEMA. 3. INTERVAL MILD IMPROVEMENT IN THE RIGHT LATERAL COSTOPHRENIC ANGLE BLUNTING AND INTERVAL IMPROVEMENT IN AERATION OF THE RIGHT LUNG BASE. JOB NUMBER: [id number] [facility]
[2018-05-22] MEDS: [UNRECOGNIZED DRUG - REMARK] PO SCH (08:09)
[2018-05-22] MEDS: ATORVASTATIN 20 MG TABLET PO SCH (09:30)
[2018-05-22] MEDS: CARVEDILOL 12.5 MG TABLET PO SCH ×2 (09:30→22:08)
[2018-05-22] MEDS: LOSARTAN POTASSIUM 100 MG TABLET PO SCH (09:30)
[2018-05-22] MEDS: FUROSEMIDE 40 MG TABLET PO SCH ×3 (09:30→22:04)
[2018-05-22] MEDS: Non-Formulary MISC (Cyclosporine [Restasis] 1 EACH) OP SCH ×2 (09:31→21:39)
[2018-05-22] MEDS: POTASSIUM CHLORIDE 20 MEQ TABLET PO SCH ×3 (09:31→22:12)
[2018-05-22] MEDS: AZITHROMYCIN 250 MG TABLET PO SCH (09:31)
[2018-05-22] MEDS: APIXABAN 5MG TABLET PO SCH ×2 (09:31→22:07)
[2018-05-22] MEDS: LEVEMIR FLEXTOUCH 100 UNIT/ML INSULIN PEN SQ SCH ×2 (09:32→21:41)
[2018-05-22] MEDS: NOVOLOG FLEXPEN (INSULIN ASPART) 100 UNITS/ML SQ PRN ×3 (09:36→18:09)
[2018-05-22] MEDS: OLOPATADINE HCL OP SCH ×2 (09:39→21:39)
[2018-05-22] MEDS: GABAPENTIN 100 MG CAPSULE PO SCH (09:40)
[2018-05-22] MEDS ORDERED: METHYLPREDNISOLONE PF 125MG/VIAL IVP SCH ×2 (10:00)
[2018-05-22] MEDS ORDERED: GABAPENTIN 100 MG CAPSULE PO PRN (10:15)
[2018-05-22] MEDS ORDERED: AZITHROMYCIN 500 MG in 0.9 % SODIUM CHLORIDE 250ML 250 ML IVPB SCH (11:00)
[2018-05-22] MEDS ORDERED: FUROSEMIDE IV 20MG/2ML VIAL IVP ONE (11:22)
--- NOTE | 2018-05-22 11:33 | Physician Progress Note ---
Subjective - Date Date of Physician Progress Note: 05/22/18 - Subjective Subjective Comment: 05/22/2018: Patient alert & oriented x 4. Sitting on edge of bed with at bedside. Patient appears in no distress today, minimal respiratory effort. Remains on 2L oxygen via NC with good pulse ox readings, nursing staff will work on weaning off O2. Patient reports some improvement in breathing since getting additional lasix yesterday, states the "tightness around my ribs has lessened". Patient reports continued weakness, will order PT/OT eval. Blood sugars have been elevated due to receiving steroids yesterday, will continue to follow patient's home sliding scale for insulin dosing. WBC slightly increased today to 13.4, up from 12.7. Patient reports episode of diaphoresis throughout the night, no recorded temperature but likely febrile. Patient to continue getting Rocephin and Zithromax. Patient has been seen by cardiology re CHF after last admission in November, no medication changes were made at that time. Last ECHO was also completed during November admission, patient had reviewed results with senior information developer. Objective - Multidiciplinary Team Multidiciplinary Team: OT, PT - Vital Signs Vital Signs: Vital Signs - Last 24 Hrs Temp Pulse Pulse Resp BP BP Pulse Ox 05/22/18 09:55 59 L 16 98 05/22/18 09:50 58 L 16 97 05/22/18 08:16 72 18 05/22/18 08:00 98.1 F 54 L 18 124/52 98 05/22/18 05:43 76 16 98 05/21/18 22:45 88 16 95 05/21/18 21:10 98.1 F 65 18 136/57 96 05/21/18 21:00 65 18 05/21/18 19:23 78 16 94 L 05/21/18 19:17 78 16 05/21/18 18:05 82 20 05/21/18 16:18 61 24 05/21/18 16:00 99.0 F 62 18 128/61 94 L 05/21/18 14:28 64 24 96 05/21/18 14:24 60 24 05/21/18 14:21 60 24 96 05/21/18 12:10 98.1 F 61 20 122/48 92 L 05/21/18 11:53 98.1 F 60 20 127/48 95 05/21/18 11:38 95 - General General Appearance: Alert, Oriented x3, Cooperative, No acute distress Limitations: No limitations - Head Head exam: Atraumatic, Normocephalic, Normal inspection Head exam detail: negative: Abrasion, Contusion, Mane's sign, General tenderness, Hematoma, Laceration - Eye Eye exam: Normal appearance. negative: Conjunctival injection, Periorbital swelling, Periorbital tenderness, Scleral icterus - ENT Ear exam: negative: Auricular hematoma, Auricular trauma Nasal Exam: Normal inspection. negative: Active bleeding, Discharge, Dried blood, Foreign body Mouth exam: Normal external inspection. negative: Drooling, Laceration, Tongue elevation - Neck Neck exam: Normal inspection. negative: Meningismus, Tenderness - Respiratory Respiratory exam: Decreased breath sounds (bases bilaterally). negative: Rales , Respiratory distress, Rhonchi, Stridor, Wheezes - Cardiovascular Cardiovascular Exam: Regular rate, Normal rhythm, Normal heart sounds Peripheral Pulses: 1+: Dorsalis Pedis (R), Dorsalis Pedis (L), 2+: Radial (R), Radial (L) - GI/Abdominal GI/Abdominal exam: Soft, Normal bowel sounds. negative: Rebound, Rigid, Tenderness - Rectal Rectal exam: Deferred - exam: Deferred - Extremities Extremities exam: Pedal edema (1+ bilaterally, chronic). negative: Calf tenderness, Tenderness - Back Back exam: Denies: CVA tenderness (R), CVA tenderness (L) - Neurological Neurological exam: Abnormal gait (shuffling), Alert, Oriented X3 - Psychiatric Psychiatric exam: Normal affect, Normal mood - Skin Skin exam: Normal color. negative: Abrasion Type of lesion: negative: abrasion Assessment and Plan - Assessment and Plan (1) CHF (congestive heart failure) Current Visit: No Status: Acute Qualifiers: Qualified Code(s): I50.23 - Acute on chronic systolic (congestive) heart failure Base Code: I50.9 - HEART FAILURE, UNSPECIFIED Comment: 05/22/18: echo completed on 11/22/17 showing EF of 49% with aortic stenosis. Her BNP on admission was 3401. EKG in ED showed bradycardia with old LBBB -additional dose of Lasix 20mg IVP given today, continue home dose of Lasix 40mg BID PO. Patient reports some improvement in symptoms after additional lasix dose yesterday -Daily weights -I&O -Fluid restrictions (2) CAP (community acquired pneumonia) Current Visit: Yes Status: Acute Qualifiers: Laterality: unspecified laterality Qualified Code(s): J18.9 - Pneumonia, unspecified organism Base Code: J18.9 - PNEUMONIA, UNSPECIFIED ORGANISM Comment: 05/22/18: Chest x- ray completed in ED: cardiomegaly, pneumonitis. History of nonproductive cough , increased SOB, and increased dyspnea with exertion. WBC 13.4 today -Will continue Rocephin and Zithromax -2L Oxygen prn to maintain pulse ox > 90% -Will repeat CBC in the morning -Encouraged to increase activity as tolerated (3) Hypoxia Current Visit: Yes Status: Acute Base Code: R09.02 - HYPOXEMIA Comment: 05/22/18: One episode of hypoxia in ER, with pulse ox of 86% on RA -Oxygen via NC prn to maintain saturations >90% -VS q8h -Duoneb treatments q4h prn (4) Weakness Current Visit: Yes Status: Acute Base Code: R53.1 - WEAKNESS Comment: 2017: Patient reports increasing weakness at home over the past week. Patient lives at home with , currently no home services are used. Patient uses a walker with wheels. -PT/OT evaluation ordered -Patient on fall risk precautions (5) DVT prophylaxis Current Visit: No Status: Acute Base Code: [id number] - Comment: 05/22/18- Patient is at increased risk with age, restricted mobility and history of afib. Pt. is being treated with Eliquis 5mg PO BID, will continue treatment while hospitalized (6) Full code status Current Visit: No Status: Acute Base Code: Z78.9 - OTHER SPECIFIED HEALTH STATUS Comment: 05/22/18- Pt is full code status Results - Labs Result Diagrams: 05/22/18 06:16 05/22/18 06:16 Labs Last 24 Hours: Laboratory Results - last 24 hr 05/21/18 05/21/18 05/21/18 09:45 12:35 17:24 WBC RBC Hgb Hct MCV MCH MCHC RDW Plt Count MPV Neutrophils % Band Neutrophils % Eosinophils % Basophils % Lymphocytes Monocytes Platelet Estimate Hypochromasia Sodium Potassium Chloride Carbon Dioxide Anion Gap BUN Creatinine Estimated GFR POC Glucose 211 H 340 H Random Glucose Calcium NT-Pro-B Natriuret Pep 3104.00 H 05/21/18 05/22/18 05/22/18 21:22 06:16 06:16 WBC 13.4 H RBC 4.16 Hgb 9.4 L Hct 30.7 L MCV 73.8 L MCH 22.5 L MCHC 30.6 L RDW 15.1 H Plt Count 245 MPV 10.5 H Neutrophils % 79.0 Band Neutrophils % 2.0 Eosinophils % Not Reportable Basophils % Not Reportable Lymphocytes 11.0 L Monocytes 8.0 Platelet Estimate Normal Hypochromasia 1+ Sodium 132 L Potassium 4.8 H Chloride 95 L Carbon Dioxide 22.0 Anion Gap 15.0 BUN 27 H Creatinine 1.0 H Estimated GFR 58 POC Glucose Random Glucose 432 H 316 H Calcium 9.4 NT-Pro-B Natriuret Pep 05/22/18 07:30 WBC RBC Hgb Hct MCV MCH MCHC RDW Plt Count MPV Neutrophils % Band Neutrophils % Eosinophils % Basophils % Lymphocytes Monocytes Platelet Estimate Hypochromasia Sodium Potassium Chloride Carbon Dioxide Anion Gap BUN Creatinine Estimated GFR POC Glucose 342 H Random Glucose Calcium NT-Pro-B Natriuret Pep DVT/PE Assessment - Risk for VTE Risk for VTE: Yes Risk Level: Moderate Risk Assessment Date: 05/21/18 Risk Assessment Time: 13:00 VTE Orders Placed or Will Be Placed: No VTE Reason for No Prophylaxis: Contraindicated (patient already on Eliquis 5mg BID) - Active Medicaitons Current Medications: Current Medications Albuterol Sulfate () 2.5 mg INH RESP.Q2H PRN PRN Reason: DIFFICULTY IN BREATHING Last Admin: 05/21/18 19:12 Dose: 2.5 mg Albuterol/Ipratropium (Duoneb) 3 ml INH RESP.Q4H.[facility] Last Admin: 05/22/18 09:52 Dose: 3 ml Amlodipine Besylate (Norvasc) 10 mg PO QHS [facility] Last Admin: 05/21/18 21:31 Dose: 10 mg Apixaban (Eliquis) 5 mg PO BID [facility] Last Admin: 05/22/18 09:31 Dose: 5 mg Atorvastatin Calcium (Lipitor) 20 mg PO DAILY [facility] Last Admin: 05/22/18 09:30 Dose: 20 mg Azithromycin (Zithromax) 250 mg PO DAILY [facility] Last Admin: 05/22/18 09:31 Dose: 250 mg Carvedilol (Coreg) 25 mg PO BID [facility] Last Admin: 05/22/18 09:30 Dose: 25 mg Clonidine HCl (Catapres) 0.1 mg PO BID PRN PRN Reason: HYPERTENSIVE EMERGENCY Diphenoxylate HCl/Atropine (Lomotil) 1 udtab PO 5XD [facility] Last Admin: 05/22/18 09:39 Dose: 1 udtab Furosemide (Lasix) 40 mg PO BID [facility] Last Admin: 05/22/18 09:30 Dose: 40 mg Furosemide (Lasix Iv) 20 mg IVP NOW ONE Stop: 05/22/18 11:23 Gabapentin (Neurontin) 100 mg PO QID PRN PRN Reason: NERVE PAIN CEFTRIAXONE 1GM/50ML BAG (Ceftriaxone 1 Gm-D5w Bag) 1 gm in 50 mls @ 100 mls/ hr IVPB Q24H [facility] Insulin Aspart (Novolog Flexpen) 0 unit SQ QIDINS PRN; Protocol PRN Reason: HYPERGLYCEMIA Last Admin: 05/22/18 09:36 Dose: 17 unit Insulin Detemir (Levemir Flextouch) 27 unit SQ BID [facility] Last Admin: 05/22/18 09:32 Dose: 27 unit Levothyroxine Sodium (Synthroid) 12.5 mcg PO DAILYTHY [facility] Last Admin: 05/22/18 06:20 Dose: 12.5 mcg Levothyroxine Sodium (Synthroid) 50 mcg PO DAILYTHY [facility] Last Admin: 05/22/18 06:19 Dose: 50 mcg Losartan Potassium (Losartan Potassium) 100 mg PO DAILY [facility] Last Admin: 05/22/18 09:30 Dose: 100 mg Non-Formulary Medication (Bimatoprost [Lumigan]) 1 drop OP QHS [facility] Last Admin: 05/21/18 21:33 Dose: 1 drop Non-Formulary Medication (Brimonidine Tartrate [Alphagan P]) 1 drop OP Q8H [facility] Last Admin: 05/22/18 06:21 Dose: 1 drop Non-Formulary Medication (Cyclosporine [Restasis]) 1 each OP BID [facility] Last Admin: 05/22/18 09:31 Dose: 1 each Non-Formulary Medication (Olopatadine Hcl [Patanol]) 1 ml OP BID [facility] Last Admin: 05/22/18 09:39 Dose: 1 ml Pantoprazole Sodium (Protonix) 40 mg PO QHS [facility] Last Admin: 05/21/18 21:30 Dose: 40 mg Patient Own Med: (Zenpep 5000 Unit) 4 each PO DAILYWM [facility] Patient Own Med: (Zenpep 5000 Unit) 3 each PO 1230,1730 [facility] Patient Own Med: (Zenpep 5000 Unit) 2 each PO QHS [facility] Potassium Chloride (Klor-Con) 20 meq PO BID [facility] Last Admin: 05/22/18 09:31 Dose: Not Given AMI Plan - Labs Result Diagrams: 05/22/18 06:16 05/22/18 06:16
[2018-05-22] MEDS: ZENPEP PO SCH ×2 (12:15→18:05)
[2018-05-22] MEDS ORDERED: CEFTRIAXONE 1GM/50ML BAG 1 GM/50 ML BAG IVPB SCH (13:00)
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
[2018-05-22] MEDS: BIMATOPROST OP SCH (21:39)
[2018-05-22] MEDS ORDERED: ZENPEP PO SCH (22:00)
[2018-05-22] MEDS: AMLODIPINE BESYLATE 5MG TAB PO SCH (22:07)
[2018-05-22] MEDS: PANTOPRAZOLE SODIUM 40 MG TABLET PO SCH (22:07)
[2018-05-23] MEDS: IPRATROPIUM/ALBUTEROL (0.5MG/3MG) NEB INH SCH ×3 (01:31→10:49)
[2018-05-23] MEDS: LEVOTHYROXINE SODIUM 25 MCG TABLET PO SCH (06:09)
[2018-05-23] MEDS: DIPHENOXYLATE HCL/ATROP 2.5/0.025MG TABLET PO SCH ×2 (06:09→09:51)
[2018-05-23] MEDS: LEVOTHYROXINE SODIUM 50 MCG TABLET PO SCH (06:09)
[2018-05-23] MEDS: BRIMONIDINE TARTRATE OP SCH (06:14)
[2018-05-23 07:04] LABS: HEMATOCRIT 30.5 % (35.0-47.0); HEMOGLOBIN 9.4 gm/dl (11.6-16.0); MEAN CELL VOLUME 73.3 fl (81-97); MEAN CORPUSCULAR HGB CONC 30.8 g/dl (32-36); MEAN PLATELET VOLUME 10.1 fl (7.4-10.4); PLATELET COUNT 280 K/uL (130-400); RED BLOOD COUNT 4.16 M/uL (3.80-5.40); RED CELL DISTRIBUTION WIDTH 15.5 % (11.5-14.5); WHITE BLOOD COUNT W/O DIFF 14.3 K/uL (4.2-12.2)
[2018-05-23 07:14] LABS: BLOOD UREA NITROGEN 31 mg/dL (8-23); CREATININE 0.9 mg/dL (0.5-0.9); EST GLOMERULAR FILTRATION RATE > 60 mL/min; GLUCOSE,RANDOM 81 mg/dL (74-109)
[2018-05-23 07:28] LABS: MEAN CORPUSCULAR HEMOGLOBIN 22.5 pg (27-33)
[2018-05-23] MEDS ORDERED: ZENPEP PO SCH (08:00)
[2018-05-23] MEDS: OLOPATADINE HCL OP SCH (09:51)
[2018-05-23] MEDS: Non-Formulary MISC (Cyclosporine [Restasis] 1 EACH) OP SCH (09:51)
[2018-05-23] MEDS: CARVEDILOL 12.5 MG TABLET PO SCH (09:51)
[2018-05-23] MEDS: ATORVASTATIN 20 MG TABLET PO SCH (09:52)
[2018-05-23] MEDS: POTASSIUM CHLORIDE 20 MEQ TABLET PO SCH (09:52)
[2018-05-23] MEDS: FUROSEMIDE 40 MG TABLET PO SCH (09:52)
[2018-05-23] MEDS: LOSARTAN POTASSIUM 100 MG TABLET PO SCH (09:52)
[2018-05-23] MEDS: AZITHROMYCIN 250 MG TABLET PO SCH (09:52)
[2018-05-23] MEDS: APIXABAN 5MG TABLET PO SCH (09:52)
[2018-05-23] MEDS: LEVEMIR FLEXTOUCH 100 UNIT/ML INSULIN PEN SQ SCH (09:56)
[2018-05-23] MEDS: NOVOLOG FLEXPEN (INSULIN ASPART) 100 UNITS/ML SQ PRN (09:57)
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
--- NOTE | 2018-05-23 12:20 | Discharge Summary ---
Providers Discharge Summary Date: 05/23/18 Date of admission: 05/21/18 12:06 Expected Date of Discharge: 05/23/18 Attending physician: TOÑO BILL Primary care physician: JOCELYNE TEJADA M.D. Physical Exam - Vital Signs Vital Signs: Vital Signs - Last 24 Hrs Temp Pulse Pulse Resp BP Pulse Ox 05/23/18 08:20 65 18 05/23/18 07:58 97.5 F L 63 18 142/67 94 L 05/23/18 05:54 67 18 96 05/23/18 01:31 62 16 05/22/18 21:47 61 14 97 05/22/18 21:03 98.1 F 61 18 128/54 95 05/22/18 19:43 61 16 05/22/18 18:16 64 16 98 05/22/18 16:00 97.7 F 61 18 134/63 97 05/22/18 13:57 61 16 100 - General General Appearance: Alert, Oriented x3, Cooperative, No acute distress Limitations: No limitations - Head Head exam: Atraumatic, Normocephalic, Normal inspection Head exam detail: negative: Abrasion, Contusion, Mane's sign, General tenderness, Hematoma, Laceration - Eye Eye exam: Normal appearance. negative: Conjunctival injection, Periorbital swelling, Periorbital tenderness, Scleral icterus - ENT ENT exam: Normal exam, Mucous membranes moist Ear exam: negative: Auricular hematoma, Auricular trauma Nasal Exam: Normal inspection. negative: Active bleeding, Discharge, Dried blood, Foreign body Mouth exam: Normal external inspection. negative: Drooling, Laceration, Tongue elevation - Neck Neck exam: Normal inspection. negative: Meningismus, Tenderness - Respiratory Respiratory exam: Decreased breath sounds (bases bilaterally). negative: Rales , Respiratory distress, Rhonchi, Stridor, Wheezes - Cardiovascular Cardiovascular Exam: Regular rate, Normal rhythm, Normal heart sounds Peripheral Pulses: 1+: Dorsalis Pedis (R), Dorsalis Pedis (L), 2+: Radial (R), Radial (L) - GI/Abdominal GI/Abdominal exam: Soft, Normal bowel sounds. negative: Rebound, Rigid, Tenderness - Rectal Rectal exam: Deferred - exam: Deferred - Extremities Extremities exam: Pedal edema (1+ bilaterally, chronic). negative: Calf tenderness, Tenderness - Back Back exam: Denies: CVA tenderness (R), CVA tenderness (L) - Neurological Neurological exam: Alert, Normal gait, Oriented X3 - Psychiatric Psychiatric exam: Normal affect, Normal mood - Skin Skin exam: Normal color. negative: Abrasion Type of lesion: negative: abrasion Hospitalization - Hospitalization Admission Diagnosis: CAP. Hypoxia. Asthma exacerbation - Problem List/Discharge Diagnosis (1) CHF (congestive heart failure) Current Visit: No Status: Acute Discharge Diagnosis: Qualified Code(s): I50.23 - Acute on chronic systolic (congestive) heart failure Base Code: I50.9 - HEART FAILURE, UNSPECIFIED Comment: 05/23/18: echo completed on 11/22/17 showing EF of 49% with aortic stenosis. Her BNP on admission was 3401 , today 1800. EKG in ED showed bradycardia with old LBBB -additional dose of Lasix 20mg IVP given today, continue home dose of Lasix 40mg BID PO. Patient reports some improvement in symptoms after additional lasix dose yesterday -Daily weights, weight down today -I&O -Fluid restrictions -Reported chest tightness last night, serial troponins 0.016, 0.012, 0.013. Discussed case with patient's roll edge machine operator, Dr. Hale, comfortable with patient discharge, does not see need for any further workup at this time. Will follow-up with patient in office as scheduled 06/04. (2) CAP (community acquired pneumonia) Current Visit: Yes Status: Acute Discharge Diagnosis: Laterality: unspecified laterality Qualified Code(s): J18.9 - Pneumonia, unspecified organism Base Code: J18.9 - PNEUMONIA, UNSPECIFIED ORGANISM Comment: 05/23/18: Chest x- ray completed in ED: cardiomegaly, pneumonitis. History of nonproductive cough , increased SOB, and increased dyspnea with exertion. WBC 14.3 today -Will continue Rocephin and Zithromax. Start cefdinir PO BID on discharge -WBC slightly elevated, likely due to steroid dose on admission. Clinically significantly improved, afebrile, no shortness of breath, on room air. (3) Hypoxia Current Visit: Yes Status: Acute Base Code: R09.02 - HYPOXEMIA Comment: 05/23/18: One episode of hypoxia in ER, with pulse ox of 86% on RA -Oxygen via NC prn to maintain saturations >90% -VS q8h -Duoneb treatments q4h prn (4) Weakness Current Visit: Yes Status: Acute Base Code: R53.1 - WEAKNESS Comment: 2017: Patient reports increasing weakness at home over the past week. Patient lives at home with , currently no home services are used. Patient uses a walker with wheels. -PT/OT evaluation ordered -Patient on fall risk precautions -Weakness improved significantly today, steady gait while ambulating in room (5) DVT prophylaxis Current Visit: No Status: Acute Base Code: [id number] - Comment: 05/23/18- Patient is at increased risk with age, restricted mobility and history of afib. Pt. is being treated with Eliquis 5mg PO BID, will continue treatment while hospitalized (6) Full code status Current Visit: No Status: Acute Base Code: Z78.9 - OTHER SPECIFIED HEALTH STATUS Comment: 05/23/18- Pt is full code status - Hospitalization Course Disposition: Home, Self-Care Hospital Course: 72 year old female presents to ER for evaluation of progressively worsening SOB over the past week. Patient denies chest discomfort, fever, chills, nausea, vomiting, diarrhea, or increased lower extremity edema. Patient does report a nonproductive cough. Patient has a significant medical history which includes IDDM, CHF, A-fib ( daily Eliquis use), asthma, ex-smoker, HTN, hypothyroidism, GERD, chronic diarrhea, lower extremity edema, chronic pain, and anemia. Patient comes from home where she lives with her , ambulates with a cane. Patient had a previous admission 11/22/17 for vomiting, diarrhea, and CHF exacerbation. At that time an echo was completed which indicated an EF of 49% with aortic stenosis. Patient's roll edge machine operator is Dr. Hale, who she has seen since that admission. ER Course: Labs: WBC 12.7, Hgb 9.12 (previous 10-11.7) CXR: Cardiomegaly, pulmonary HTN, ground glass opacities to the marjan-hilar regions bilaterally, cannot exclude infiltrates EKG: NSR 64, LBBB Patient had one episode of hypoxia with pulse ox dropping to 86% on RA with no exertion, was placed on 2L oxygen via NC and oxygen saturation in the high 90's since then. She received 1 dose of Zithromax, Rocephin, and Prednisone in ER PCP Alyssa Pulp Grinder Alexia Fine Grade Operator: MSU 05/21/18: Patient alert and oriented x 4, resting comfortably in bed, at bedside. Patient is on 2L oxygen via NC at this time, pulse ox high 90's, no acute distress. BNP elevated at 3401. Patient will be given 40mg Lasix IVP in addition to her daily lasix dose. Daily weight, I&O and fluid restrictions ordered. Will not repeat ECHO at this time as it was just completed 11/22/17. Zithromax and Rocephin continued at this time as CAP cannot yet be ruled out. 05/23/18: Patient alert and oriented x 4, sitting on edge of bed with family at bedside. Patient is on room air, pulse ox > 94%, no acute distress. BNP improved today at 1800. Discussed case with roll edge machine operator, Dr. Hale. Reviewed ECHO from 11/22/17, indeterminate troponins this admission, and BNP. He feels no further workup is necessary and no new medications needed for treatment. Will follow-up with patient in office as scheduled 06/04/18. WBC remains slightly elevated, may be due to steroids given in ER. Patient shows clinical improvement, remains afebrile. Patient will be started on Cefdinir 300mg BID x 10 days for PNA, follow-up with PCP as scheduled 05/29. Procedures: Imaging and X-Rays 05/21/18 09:32 CHEST 2 VIEWS [RAD] Stat Cardiology Procedures 05/21/18 09:32 EKG NOW 05/21/18 14:28 Quality Compliance Consultant .Continuous 05/22/18 18:31 EKG NOW Abnormal Labs: Abnormal Lab Results 05/21/18 05/21/18 05/21/18 Range/Units 09:45 09:45 09:45 WBC 12.7 H (4.2-12.2) K/uL Hgb 9.1 L (11.6-16.0) gm/dl Hct 29.9 L (35.0-47.0) % MCV 74.6 L (81-97) fl MCH 22.6 L (27-33) pg MCHC 30.4 L (32-36) g/dl RDW 15.4 H (11.5-14.5) % MPV (7.4-10.4) fl Lymphocytes 12.0 L (16-45) % Monocytes 18.0 H (0-9) % Sodium (136-145) mmol/L Potassium 4.6 H (3.4-4.5) mmol/L Chloride 96 L (98-107) mmol/L BUN (8-23) mg/dL Creatinine 1.0 H (0.5-0.9) mg/dL POC Glucose (70-110) mg/dL Random Glucose 213 H (74-109) mg/dL Alkaline Phosphatase 114 H (35-104) U/L Troponin T (0-0.010) ng/mL NT-Pro-B Natriuret Pep 3104.00 H (<125) pg/mL Albumin 3.4 L (4.0-5.0) g/dL Albumin/Globulin Ratio 1.0 L (1.1-1.8) 05/21/18 05/21/18 05/21/18 Range/Units 12:35 17:24 21:05 WBC (4.2-12.2) K/uL Hgb (11.6-16.0) gm/dl Hct (35.0-47.0) % MCV (81-97) fl MCH (27-33) pg MCHC (32-36) g/dl RDW (11.5-14.5) % MPV (7.4-10.4) fl Lymphocytes (16-45) % Monocytes (0-9) % Sodium (136-145) mmol/L Potassium (3.4-4.5) mmol/L Chloride (98-107) mmol/L BUN (8-23) mg/dL Creatinine (0.5-0.9) mg/dL POC Glucose 211 H 340 H 444 H (70-110) mg/dL Random Glucose (74-109) mg/dL Alkaline Phosphatase (35-104) U/L Troponin T (0-0.010) ng/mL NT-Pro-B Natriuret Pep (<125) pg/mL Albumin (4.0-5.0) g/dL Albumin/Globulin Ratio (1.1-1.8) 05/21/18 05/22/18 05/22/18 Range/Units 21:22 06:16 06:16 WBC 13.4 H (4.2-12.2) K/uL Hgb 9.4 L (11.6-16.0) gm/dl Hct 30.7 L (35.0-47.0) % MCV 73.8 L (81-97) fl MCH 22.5 L (27-33) pg MCHC 30.6 L (32-36) g/dl RDW 15.1 H (11.5-14.5) % MPV 10.5 H (7.4-10.4) fl Lymphocytes 11.0 L (16-45) % Monocytes (0-9) % Sodium 132 L (136-145) mmol/L Potassium 4.8 H (3.4-4.5) mmol/L Chloride 95 L (98-107) mmol/L BUN 27 H (8-23) mg/dL Creatinine 1.0 H (0.5-0.9) mg/dL POC Glucose (70-110) mg/dL Random Glucose 432 H 316 H (74-109) mg/dL Alkaline Phosphatase (35-104) U/L Troponin T (0-0.010) ng/mL NT-Pro-B Natriuret Pep (<125) pg/mL Albumin (4.0-5.0) g/dL Albumin/Globulin Ratio (1.1-1.8) 05/22/18 05/22/18 05/22/18 Range/Units 07:30 11:30 17:00 WBC (4.2-12.2) K/uL Hgb (11.6-16.0) gm/dl Hct (35.0-47.0) % MCV (81-97) fl MCH (27-33) pg MCHC (32-36) g/dl RDW (11.5-14.5) % MPV (7.4-10.4) fl Lymphocytes (16-45) % Monocytes (0-9) % Sodium (136-145) mmol/L Potassium (3.4-4.5) mmol/L Chloride (98-107) mmol/L BUN (8-23) mg/dL Creatinine (0.5-0.9) mg/dL POC Glucose 342 H 352 H 200 H (70-110) mg/dL Random Glucose (74-109) mg/dL Alkaline Phosphatase (35-104) U/L Troponin T (0-0.010) ng/mL NT-Pro-B Natriuret Pep (<125) pg/mL Albumin (4.0-5.0) g/dL Albumin/Globulin Ratio (1.1-1.8) 05/22/18 05/23/18 05/23/18 Range/Units 18:45 01:30 06:43 WBC 14.3 H (4.2-12.2) K/uL Hgb 9.4 L (11.6-16.0) gm/dl Hct 30.5 L (35.0-47.0) % MCV 73.3 L (81-97) fl MCH 22.5 L (27-33) pg MCHC 30.8 L (32-36) g/dl RDW 15.5 H (11.5-14.5) % MPV (7.4-10.4) fl Lymphocytes (16-45) % Monocytes 14.0 H (0-9) % Sodium (136-145) mmol/L Potassium (3.4-4.5) mmol/L Chloride (98-107) mmol/L BUN (8-23) mg/dL Creatinine (0.5-0.9) mg/dL POC Glucose (70-110) mg/dL Random Glucose (74-109) mg/dL Alkaline Phosphatase (35-104) U/L Troponin T 0.016 H 0.012 H (0-0.010) ng/mL NT-Pro-B Natriuret Pep (<125) pg/mL Albumin (4.0-5.0) g/dL Albumin/Globulin Ratio (1.1-1.8) 05/23/18 05/23/18 05/23/18 Range/Units 06:43 06:43 07:50 WBC (4.2-12.2) K/uL Hgb (11.6-16.0) gm/dl Hct (35.0-47.0) % MCV (81-97) fl MCH (27-33) pg MCHC (32-36) g/dl RDW (11.5-14.5) % MPV (7.4-10.4) fl Lymphocytes (16-45) % Monocytes (0-9) % Sodium (136-145) mmol/L Potassium (3.4-4.5) mmol/L Chloride (98-107) mmol/L BUN 31 H (8-23) mg/dL Creatinine (0.5-0.9) mg/dL POC Glucose 145 H (70-110) mg/dL Random Glucose (74-109) mg/dL Alkaline Phosphatase (35-104) U/L Troponin T 0.013 H (0-0.010) ng/mL NT-Pro-B Natriuret Pep 1838.00 H (<125) pg/mL Albumin (4.0-5.0) g/dL Albumin/Globulin Ratio (1.1-1.8) Condition at Discharge: (2) Stable VTE Discharge VTE Reason For No Overlap Therapy: Not Indicated (continue eliquis 5mg BID ) Discharge Medications - Discharge Medications Prescriptions: Cefdinir [Omnicef] 300 mg PO BID 10 Days #20 cap Home Medications: Ambulatory Orders Brimonidine Tartrate [Alphagan P] 1 drop OP TID 04/18/14 [Last Taken 04/27/18] Cyclosporine [Restasis] 1 each OP BID 04/18/14 [Last Taken 04/27/18] Fish Oil/Dha/Epa [Fish Oil 1,200 mg Fish Oil] 1 each PO DAILY 04/18/14 [Last Taken 04/27/18] Insulin Aspart [Novolog] 0 unit SQ QIDINS PRN 04/18/14 [Last Taken 04/27/18] Insulin Glargine,Hum.rec.anlog [Lantus Solostar] 27 units SQ BID 04/18/14 [Last Taken 04/27/18] Multivitamin [Multi-Vitamin Daily] 1 each PO DAILY 04/18/14 [Last Taken 04/27/18 ] Olopatadine HCl [Patanol] 1 drop OP BID 04/18/14 [Last Taken 04/27/18] Omeprazole [Prilosec] 20 mg PO QHS 04/18/14 [Last Taken 04/27/18] Pitavastatin Calcium [Livalo] 4 mg PO DAILY 04/18/14 [Last Taken 04/27/18] Apixaban [Eliquis] 5 mg PO BID 11/05/14 [Last Taken 04/27/18] Potassium Chloride [Klor-Con] 20 meq PO BID 11/15/14 [Last Taken 04/27/18] Losartan Potassium [Cozaar] 100 mg PO DAILY 05/29/15 [Last Taken 04/27/18] Bimatoprost [Lumigan] 1 drop OP QHS 06/18/16 [Last Taken 04/27/18] Carvedilol [Coreg] 25 mg PO BID 06/18/16 [Last Taken 04/27/18] Levothyroxine Sodium [Synthroid] 12.5 mg PO DAILYTHY 06/18/16 [Last Taken ] Lipase/Protease/Amylase [Zenpep Dr 5,000 Unit Capsule] 0 cap PO QIDWMHS [Last Taken 04/27/18] Clonidine HCl [Catapres] 0.1 mg PO BID PRN 11/19/16 [Last Taken 04/27/18] Diphenoxylate HCl/Atropine [Lomotil 2.5-0.025 mg Tablet] 1 each PO 5XD 11/19/16 [Last Taken 04/27/18] Furosemide [Lasix] 40 mg PO BID 11/19/16 [Last Taken 04/27/18] Calcium Carbonate/Vitamin D3 [Calcium 600 + Vit D Tablet] 1 each PO DAILY [Last Taken 04/27/18] Amlodipine Besylate [Norvasc] 10 mg PO QHS 11/22/17 [Last Taken 04/27/18] Gabapentin [Neurontin] 100 mg PO QID PRN 05/21/18 [Last Taken Unknown] Cefdinir [Omnicef] 300 mg PO BID 10 Days #20 cap 05/23/18 [Last Taken Unknown] Discharge Plan - Discharge Instructions Activity at Discharge: Increase Activity as Tolerated Diet at Discharge: Other (fluid restrictions) Additional Instructions: Follow-up with roll edge machine operator as scheduled for later this month. Follow-up with PCP as scheduled for next week Start the Cefdinir today, taking one dose this afternoon. Starting tomorrow you will take 1 pill twice a day. Quality Measures - Quality Measures Quality Measures: Atrial Fibrillation & Atrial Flutter: Chronic Anticoagulation Therapy, Advance Directives, Documentation of Current Medications in Medical Record, Elder Maltreatment Screen and Follow-Up Plan, Heart Failure, Screening for High Blood Pressure and F/U Documented - Current Medications Quality Measure: Measure #130: Documentation of Current Medications Documentation of Current Medications: <Current Medications Documented/Reviewed> [G8427] - Blood Pressure Screening Quality Measure: Screening for High Blood Pressure and Follow-Up Documented Does Patient Have Any of the Following: Active Dx of HTN Blood Pressure Classification: Pre-Hypertensive BP Reading Systolic Measurement: 127 Diastolic Measurement: 48 Screening for High Blood Pressure: Patient Exclusion, Hx of HTN [G9744] - Atrial Fibrillation and Atrial Flutter Quality Measure: Atrial Fibrillation & Atrial Flutter: Chronic Anticoagulation Therapy Does Patient Have Any of the Following: No CHADS2 Risk Stratification: Hypertension, Diabetes Mellitus, Heart Failure or Impaired LVSF Risk Stratification Summary: One or more high risk factors OR more than one moderate risk factor exists. [G8972] Anticoagulation Therapy: <Oral anticoagulant Prescribed> [B8967] - Heart Failure (KIRSTIN/ARB Therapy) Quality Measure: Heart Failure Left Ventricular Systolic Function: Moderately or Severely Depressed LVSF [3021F ] (EF 49%) KIRSTIN Inhibitor or ARB Therapy for LVSD: <KIRSTIN Inhibitor or ARB therapy prescribed or currently taken> [4010F] - Heart Failure (Beta-brayden Therapy) Quality Measure: Heart Failure Left Ventricular Systolic Function: Unknown - Advance Directives Quality Measure: Measure #47: Care Plan Advance Directives Established: No Advance Directives Information Provided To Patient: Already Provided Advance Directives on File: No Living Will: No Power of Site Auditor: No Advance Care Planning: Not Discussed or Documented [1123F 8P] - Elder Abuse Suspicion Index Screening: Elder Abuse Suspicion Index Screening Rely on people for bathing, dressing, shopping, banking, etc: No Prevented from getting food, clothes, medication, etc: No Made to feel shamed or threatened by someone: No Forced to sign papers or use money against will: No Feel afraid, touched in ways not wanted or hurt physically: No Poor eye contact, withdrawn, malnourished, cuts or bruises: No Screening Result: Negative result EASI Reference Information: Lindsey CRUZ, Nohelia Patricio, Viktor D, Qasim Rosales.Development and validation of a tool to assist physicians identification of elder abuse: The Elder Abuse Suspicion Index (EASI ). Journal of Elder Abuse and Neglect, 2008; 20 (3): 276-300. - Elder Maltreatment Screen Quality Measures: Elder Maltreatment Screen and Follow-Up Plan Elder Maltreatment Screen: <Negative, No Follow-Up Plan Required> [G3112]
== END 2018-05-23 13:00 | disposition home or self-care (01) | DRG 193 ==
LOC: ER 09:18 → MEDSURG 12:06
PROVIDERS: ADMIT Internal Medicine; ATTEND Internal Medicine
DX: J18.9 Pneumonia, unspecified organism (principal); I50.23 Acute on chronic systolic (congestive) heart failure; J45.901 Unspecified asthma with (acute) exacerbation; R09.02 Hypoxemia; R53.1 Weakness; I48.91 Unspecified atrial fibrillation; Z79.01 Long term (current) use of anticoagulants; E11.9 Type 2 diabetes mellitus without complications; M85.80 Other specified disorders of bone density and structure, unspecified site; Z79.4 Long term (current) use of insulin; E03.9 Hypothyroidism, unspecified; M19.90 Unspecified osteoarthritis, unspecified site; M81.0 Age-related osteoporosis without current pathological fracture; I10 Essential (primary) hypertension; Z86.14 Personal history of Methicillin resistant Staphylococcus aureus infection; Z87.891 Personal history of nicotine dependence; D64.9 Anemia, unspecified
CPT/HCPCS: 99285 ×2; 80053; 85027; 83880; 71046; 93005; 93010; J7512; 36416; 80048; 82947; 82948; 84484; 94760; 94761; 99223; 99233; 99239; J0696; J1940; J7613

== ENCOUNTER 2018-09-10 13:08 | Inpatient (IN) | payer MEDICARE, OTHER ==
[2018-09-10 13:48] LABS: HEMATOCRIT 30.5 % (35.0-47.0); HEMOGLOBIN 9.2 gm/dl (11.6-16.0); MEAN CELL VOLUME 71.3 fl (81-97); MEAN CORPUSCULAR HGB CONC 30.2 g/dl (32-36); PLATELET COUNT 195 K/uL (130-400); RED BLOOD COUNT 4.28 M/uL (3.80-5.40); RED CELL DISTRIBUTION WIDTH 17.2 % (11.5-14.5); WHITE BLOOD COUNT W/O DIFF 9.8 K/uL (4.2-12.2)
[2018-09-10 13:49] LABS: MEAN CORPUSCULAR HEMOGLOBIN 21.4 pg (27-33)
[2018-09-10 14:03] LABS: INR 1.1; PARTIAL THROMBOPLASTIN TIME 38.4 SECONDS (24.5-39.1); PROTHROMBIN TIME (PATIENT) 11.4 SECONDS (9.5-12.1)
[2018-09-10 14:04] LABS: HYPOCHROMIA 1+; PLATELET ESTIMATE NORMAL (NORMAL)
[2018-09-10 14:06] LABS: BLOOD UREA NITROGEN 25 mg/dL (8-23); CREATININE 1.2 mg/dL (0.5-0.9); EST GLOMERULAR FILTRATION RATE 47 mL/min
[2018-09-10 14:07] LABS: TOTAL PROTEIN 6.7 g/dL (6.6-8.7)
[2018-09-10 14:09] LABS: GLUCOSE,RANDOM 155 mg/dL (74-109)
[2018-09-10 14:11] LABS: ALB/GLOB RATIO 1.5 (1.1-1.8); ALKALINE PHOSPHATASE 106 U/L (35-104); ALT/SGPT 10 U/L (<33); AST/SGOT 14 U/L (10.0-35.0); CREATINE PHOSPHOKINASE 40 U/L (26-192)
--- NOTE | 2018-09-10 14:12 | Emergency Department Record ---
History of Present Illness - General Chief complaint: Edema Stated complaint: retaining water Time Seen by Provider: 09/10/18 13:24 Source: Patient, Family Mode of Arrival: Ambulatory Limitations: No limitations - History of Present Illness Initial comments: The patient is here due to being sent over from her PCP's office today. She has had a progressively worsening hx of leg swelling, edema, and SOB with exertion. The patient denies any fever, chills, CP, back pain, or AP. She does have a long hx of CHF and is on multiple medicines for it. MD Complaint: Extremity swelling Onset/Timin -: Week(s) Location: Other History of Same: Yes Associated Symptoms: Shortness of breath - Related Data Allergies Allergy/AdvReac Type Severity Reaction Status Date / Time hydrocodone bitartrate Allergy Unknown RASH Verified 09/10/18 13:18 [From VICODIN] hydromorphone HCl AdvReac Unknown NAUSEA AND Verified 09/10/18 13:18 [From DILAUDID] VOMITING morphine [MORPHINE] AdvReac Unknown NAUSEA AND Verified 09/10/18 13:18 VOMITING Travel Screening - Travel/Exposure Within Last 30 Days Have you traveled within the last 30 days?: No - Travel/Exposure Within Last Year Have you traveled outside the [place] in the last year?: No - Additonal Travel Details Have you been exposed to anyone with a communicable illness?: No - Travel Symptoms Symptom Screening: None Review of Systems Constitutional: Denies: Chills, Fever Eyes: Denies: Eye discharge ENT: Denies: Congestion Respiratory: Reports: Dyspnea. Denies: Cough, Hemoptysis Cardiovascular: Reports: Dyspnea on exertion. Denies: Arrhythmia, Chest pain Endocrine: Reports: Fatigue Gastrointestinal: Denies: Abdominal pain, Diarrhea, Nausea, Vomiting Genitourinary: Denies: Dysuria Musculoskeletal: Denies: Back pain Skin: Denies: Bruising Past Medical History - SOCIAL HISTORY Smoking Status: Former smoker Alcohol Use: None Drug Use: None - RESPIRATORY Hx Respiratory Disorders: Yes Hx Asthma: Yes - CARDIOVASCULAR Hx Cardio Disorders: Yes Hx CHF: Yes Hx Hypertension: Yes Hx Irregular Heartbeat: Yes (A-fib) Hx Palpitations: Yes Comment:: skips beat - NEURO Hx Neuro Disorders: No - GI Hx GI Disorders: Yes Hx Reflux: Yes Comment:: trouble with gastric enzymes - Hx Genitourinary Disorders: No - ENDOCRINE Hx Endocrine Disorders: Yes Hx Diabetes: Yes (type 2 with insulin) Hx Thyroid Disease: Yes (hypo) - MUSCULOSKELETAL Hx Musculoskeletal Disorders: Yes Hx Arthritis: Yes Hx Osteoporosis: Yes - PSYCH Hx Psych Problems: No - HEMATOLOGY/ONCOLOGY Hx Hematology/Oncology Disorders: Yes Hx Bruising: Yes Family Medical History Any Significant Family History?: Yes Hx Diabetes: Father, Mother, Brother/Sister Hx Heart Disease: Mother Hx Resp Disorders: Father Physical Exam - General General Appearance: Alert, Oriented x3, Cooperative, No acute distress - Head Head exam: Atraumatic, Normocephalic, Normal inspection - Eye Eye exam: Normal appearance, PERRL, EOMI - ENT Throat exam: Normal inspection. negative: Tonsillar erythema, Tonsillar exudate - Neck Neck exam: Normal inspection, Full ROM. negative: Tenderness - Respiratory Respiratory exam: Decreased breath sounds (at the bases.), Rales (at the bases.) . negative: Normal lung sounds bilaterally, Chest wall tenderness, Rhonchi - Cardiovascular Cardiovascular Exam: Regular rate, Normal rhythm, Normal heart sounds. negative : Diastolic murmur, Systolic murmur - GI/Abdominal GI/Abdominal exam: Soft, Normal bowel sounds. negative: Tenderness - Extremities Extremities exam: Pedal edema (2+ bilaterally.). negative: Normal inspection - Neurological Neurological exam: Alert. negative: Motor sensory deficit - Psychiatric Psychiatric exam: negative: Anxious - Skin Skin exam: negative: Rash Course Vital Signs 09/10/18 13:19 Temperature 97.6 F Pulse Rate 78 Respiratory 16 Rate Blood Pressure 119/46 Pulse Ox 96 - Reevaluation(s) Reevaluation #1: The patient is doing OK at this time. She denies any pain or discomfort. I did discuss the lab results with her and the need for hospital admission and she does agree. I also did discuss the case with Dr. Yin and he does accept the patient for admission. 09/10/18 14:57 Medical Decision Making - Data Complexity MDM Data: Labs Ordered and/or Reviewed, X-Ray Ordered and/or Reviewed, EKG Ordered and/or Reviewed - Lab Data Result diagrams: 09/10/18 13:25 09/10/18 13:25 Lab Results 09/10/18 09/10/18 Range/Units 13:25 13:25 WBC 9.8 (4.2-12.2) K/uL RBC 4.28 (3.80-5.40) M/uL Hgb 9.2 L (11.6-16.0) gm/dl Hct 30.5 L (35.0-47.0) % MCV 71.3 L (81-97) fl MCH 21.4 L (27-33) pg MCHC 30.2 L (32-36) g/dl RDW 17.2 H (11.5-14.5) % Plt Count 195 (130-400) K/uL MPV 10.0 (7.4-10.4) fl Neutrophils % 66.0 (47-80) % Band Neutrophils % 1.0 (0-5) % Eosinophils % Not Reportable Basophils % Not Reportable Lymphocytes 24.0 (16-45) % Monocytes 9.0 (0-9) % Platelet Estimate Normal (NORMAL) Hypochromasia 1+ PT 11.4 (9.5-12.1) SECONDS INR 1.1 APTT 38.4 (24.5-39.1) SECONDS - EKG Data -: EKG Interpreted by Pr EKG: No Acute Changes, Unchanged From Previous - Radiology Data Radiology results: Report reviewed (CXR: CMG with mild to mod CHF.) Disposition Disposition: Admit Clinical Impression: CHF (congestive heart failure) Qualifiers: Heart failure type: unspecified Heart failure chronicity: unspecified Qualified Code(s): I50.9 - Heart failure, unspecified Disposition: Still a Patient at [facility] Decision to Admit: Admit from ER Decision to Admit Date: 09/10/18 Decision to Admit Time: 14:58 Accepting Physician: Annamaria Time Discussed w/Accepting Physician: 14:59 Condition: (2) Stable Forms: Patient Portal Access Time of Disposition: 14:59 Quality - Quality Measures Quality Measures: N/A - Blood Pressure Screening View Details: Yes Does Patient Have Any of the Following: No Blood Pressure Classification: Normal BP Reading Systolic Measurement: 119 Diastolic Measurement: 46 Screening for High Blood Pressure: < Normal BP, F/U Not Required > [G8783]
[2018-09-10 14:13] LABS: CKMB 1.5 ng/mL (<3.77)
[2018-09-10] MEDS ORDERED: FUROSEMIDE IV 40MG/4ML VIAL IVP ONE (14:20)
[2018-09-10 14:24] LABS: THYROID STIMULATING HORMONE 2.72 uIU/mL (0.270-4.20)
[2018-09-10 15:25] LABS: URINE APPEARANCE CLEAR; URINE BILIRUBIN NEGATIVE (NEGATIVE); URINE BLOOD NEGATIVE (NEGATIVE); URINE COLOR YELLOW; URINE GLUCOSE (UA) NEGATIVE (NEGATIVE); URINE KETONE NEGATIVE (NEGATIVE); URINE LEUKOCYTE ESTERASE MODERATE (NEGATIVE); URINE NITRITE POSITIVE (NEGATIVE); URINE PROTEIN NEGATIVE (NEGATIVE); URINE UROBILINOGEN 0.2 E.U./dL (0.20 - 1.00)
[2018-09-10 15:33] LABS: URINE BACTERIA 4+; URINE EPITHELIAL CELLS NONE SEEN (FEW); URINE RBC NONE SEEN (NONE SEEN)
[2018-09-10] MEDS ORDERED: NITROFURANTOIN MONO 100 MG CAPSULE PO ONE (15:36)
[2018-09-10] MEDS ORDERED: GABAPENTIN 100 MG CAPSULE PO PRN ×2 (16:32→21:09)
[2018-09-10] MEDS ORDERED: CLONIDINE HCL 0.1 MG TABLET PO PRN (16:32)
[2018-09-10] MEDS: FUROSEMIDE IV 40MG/4ML VIAL IVP SCH (18:03)
[2018-09-10] MEDS: [UNRECOGNIZED DRUG - REMARK] PO SCH ×2 (18:19→21:54)
[2018-09-10] MEDS: DIPHENOXYLATE HCL/ATROP 2.5/0.025MG TABLET PO SCH ×2 (18:19→21:55)
[2018-09-10] MEDS: NOVOLOG FLEXPEN (INSULIN ASPART) 100 UNITS/ML SQ SCH ×2 (18:23→21:56)
[2018-09-10] MEDS: GABAPENTIN 100 MG CAPSULE PO SCH ×2 (19:50→21:34)
[2018-09-10] MEDS: BIMATOPROST OP SCH (21:53)
[2018-09-10] MEDS: Non-Formulary MISC (Cyclosporine [Restasis] 1 EACH) OP SCH (21:53)
[2018-09-10] MEDS: BRIMONIDINE TARTRATE OP SCH (21:53)
[2018-09-10] MEDS: OLOPATADINE HCL OP SCH (21:54)
[2018-09-10] MEDS: CARVEDILOL 12.5 MG TABLET PO SCH (21:55)
[2018-09-10] MEDS: POTASSIUM CHLORIDE 20 MEQ TABLET PO SCH (21:55)
[2018-09-10] MEDS: AMLODIPINE BESYLATE 5MG TAB PO SCH (21:55)
[2018-09-10] MEDS: APIXABAN 5MG TABLET PO SCH (21:55)
[2018-09-10] MEDS: PANTOPRAZOLE SODIUM 40 MG TABLET PO SCH (21:55)
[2018-09-10] MEDS ORDERED: NITROFURANTOIN MONO 100 MG CAPSULE PO SCH (22:00)
[2018-09-10] MEDS: LEVEMIR FLEXTOUCH 100 UNIT/ML INSULIN PEN SQ SCH (22:07)
[2018-09-11] MEDS: ALBUTEROL HFA 8 GM INHALER INH PRN ×2 (04:52→21:25)
[2018-09-11 05:31] LABS: CREATININE 1.1 mg/dL (0.5-0.9)
[2018-09-11] MEDS: LEVOTHYROXINE SODIUM 25 MCG TABLET PO SCH (06:13)
[2018-09-11] MEDS: LEVOTHYROXINE SODIUM 50 MCG TABLET PO SCH (06:15)
[2018-09-11] MEDS: DIPHENOXYLATE HCL/ATROP 2.5/0.025MG TABLET PO SCH ×5 (06:17→21:58)
[2018-09-11 06:31] LABS: HEMATOCRIT 28.3 % (35.0-47.0); HEMOGLOBIN 8.6 gm/dl (11.6-16.0); MEAN CELL VOLUME 70.9 fl (81-97); MEAN CORPUSCULAR HGB CONC 30.4 g/dl (32-36); PLATELET COUNT 193 K/uL (130-400); RED BLOOD COUNT 3.99 M/uL (3.80-5.40); WHITE BLOOD COUNT W/O DIFF 9.1 K/uL (4.2-12.2)
[2018-09-11 06:38] LABS: MEAN CORPUSCULAR HEMOGLOBIN 21.5 pg (27-33)
[2018-09-11 06:39] LABS: ANISOCYTOSIS 1+; HYPOCHROMIA 1+
[2018-09-11] MEDS ORDERED: CEFTRIAXONE SODIUM 1 GM in 0.9 % SODIUM CHLORIDE 100ML 100 ML IVPB SCH (07:00)
--- NOTE | 2018-09-11 07:19 | RADIOLOGY REPORT ---
EXAM: CHEST, TWO VIEWS HISTORY: DIFFICULTY BREATHING AND COUGH FOR ONE WEEK. TECHNIQUE: PA and lateral views of the chest were obtained. Comparison: Chest radiograph 05/21/18. FINDINGS: The cardiac silhouette is mildly enlarged and stable from prior. No definite pulmonary vascular congestion. Blunting of the right lung costophrenic angles, similar to slightly increased from prior radiograph. Suggestion of mild perihilar and basilar interstitial opacities bilaterally, otherwise no focal consolidation. No visible pneumothorax. IMPRESSION: 1. STABLE CARDIAC SILHOUETTE ENLARGEMENT. 2. SUGGESTION OF MILD BILATERAL PERIHILAR AND BASILAR INTERSTITIAL PULMONARY OPACITIES, NONSPECIFIC, BUT COULD REPRESENT EDEMA. 3. BLUNTING OF THE RIGHT LATERAL COSTOPHRENIC ANGLE, SIMILAR TO SLIGHTLY INCREASED FROM COMPARISON RADIOGRAPH ON 05/21/18; COULD REPRESENT A TRACE PLEURAL EFFUSION OR CHRONIC PLEURAL THICKENING. JOB NUMBER: [id number] MTDD
[2018-09-11] MEDS: LEVEMIR FLEXTOUCH 100 UNIT/ML INSULIN PEN SQ SCH ×3 (07:59→21:59)
[2018-09-11] MEDS: NOVOLOG FLEXPEN (INSULIN ASPART) 100 UNITS/ML SQ SCH ×4 (08:43→22:06)
[2018-09-11] MEDS: [UNRECOGNIZED DRUG - REMARK] PO SCH ×4 (08:45→21:59)
[2018-09-11] MEDS: AZITHROMYCIN 500 MG TABLET PO SCH (10:31)
[2018-09-11] MEDS: CARVEDILOL 12.5 MG TABLET PO SCH ×2 (10:31→21:58)
[2018-09-11] MEDS: APIXABAN 5MG TABLET PO SCH ×2 (10:32→21:58)
[2018-09-11] MEDS: AMLODIPINE BESYLATE 5MG TAB PO SCH ×2 (10:32→22:00)
[2018-09-11] MEDS: POTASSIUM CHLORIDE 20 MEQ TABLET PO SCH ×2 (10:32→21:58)
[2018-09-11] MEDS: LOSARTAN POTASSIUM 100 MG TABLET PO SCH (10:32)
[2018-09-11] MEDS: FUROSEMIDE IV 40MG/4ML VIAL IVP SCH ×2 (10:33→16:45)
[2018-09-11] MEDS: Non-Formulary MISC (Cyclosporine [Restasis] 1 EACH) OP SCH ×2 (10:34→21:57)
[2018-09-11] MEDS: BRIMONIDINE TARTRATE OP SCH ×2 (10:34→21:57)
[2018-09-11] MEDS: OLOPATADINE HCL OP SCH ×2 (13:11→21:59)
--- NOTE | 2018-09-11 14:00 | History and Physical Report ---
DATE OF ADMISSION: 09/10/2018 CHIEF COMPLAINT: Dyspnea and retention of fluid in her legs and abdomen. HISTORY OF PRESENT ILLNESS: This 72-year-old female was sent to the emergency department by Dr. Shah's office by the nurse practitioner for increasing edema in her legs and shortness of breath with exertion. This has been progressively getting worse over the last 2 weeks but she said it had actually been coming on for about a month. She has increased her last at home to 3 times a day. She normally takes 40 mg twice a day. She bumped it up to 3 times a day in the last 4-5 days. Once she saw Dr. Shah's office nurse practitioner, she sent her to the hospital for evaluation. She also complains of a cough. Her chest x-ray showed mild pulmonary congestion, possible infiltrate with a little pleural effusion in the right lung. She has a dry cough. She also has a history of COPD, diabetes mellitus, congestive heart failure, atrial fibrillation on Eliquis, has been converted to normal sinus rhythm with ablation therapy in 2014. Her last heart cath was in 2013. She sees an faceter at [facility]. She could not tell me his name or her name but she sees the nurse practitioner and recently her Lantus was changed down to 23 units b.i.d. and NovoLog to scale. PAST MEDICAL HISTORY: Congestive heart failure. [employer] is Dr. Jones, last seen him in June or July. Diabetes mellitus type 2, history of atrial fibrillation on Eliquis and normal sinus rhythm after ablation therapy in 2014, neuropathy, back surgery in 2016, heart cath was done in 2013. She also has COPD, GERD, hypothyroidism, pancreatic insufficiency, and hypertension. PAST SURGICAL HISTORY: Back surgery in 2017, gallbladder removal, bladder sling, hysterectomy, carpal tunnel x3, and right lower leg surgery from a traumatic accident. MEDICATIONS: 1. Levothyroxine 62.5 mcg daily. She takes 50 plus 12.5 mcg tablets together. 2. Lantus 23 units b.i.d. 3. Amlodipine 5 mg b.i.d. 4. Gabapentin 200 mg at h.s. She sometimes takes 300 mg at h.s. if her neuropathy is bothering her. 5. Potassium chloride 20 mEq b.i.d. 6. Livalo 4 mg daily. 7. Prilosec 20 mg at h.s. 8. Patanol 1 drop b.i.d. 9. Multivitamin 1 a day. 10. Losartan 100 mg daily. 11. Pancreatic enzymes 5000 units q.i.d. with meals. The trade name is Zenpep, which is lipase, protease, and amylase. 12. NovoLog to scale. 13. Lasix 40 mg b.i.d. but she recently moved it up to t.i.d. prior to coming in here. 14. Fish oil 1 a day. 15. Lomotil 1 p.r.n. for diarrhea. 16. Restasis 1 b.i.d. in her eyes. 17. Clonidine 0.1 mg b.i.d. p.r.n. hypertension. 18. Carvedilol (Coreg) 25 mg b.i.d. 19. Calcium 600/vitamin D 1 a day. 20. Alphagan 1 drop t.i.d. 21. Lumigan 1 drop at h.s. 22. Eliquis 5 mg b.i.d. 23. Albuterol sulfate inhaler (ProAir) 1-2 puffs q.4 h. p.r.n. ALLERGIES: HYDROCODONE, HYDROMORPHONE, MORPHINE. FAMILY/PSYCHOSOCIAL HISTORY: Diabetes with father, mother, brother, and sister. Mother had heart disease. Father had respiratory problems. REVIEW OF SYSTEMS: HEENT: No sore throat but she has a cough which seems to be getting worse. She denies any facial or hearing problems. Cardiovascular: Denies any chest pain, palpitations, or arrhythmias. Respiratory: She is short of breath with exertion. Former smoker. She stopped in 1979. She has a history of COPD. Gastrointestinal: No nausea, vomiting, diarrhea, black stools, or bloody stools. She is slightly distended and bloated. Genitourinary: No dysuria, hematuria, frequency, or burning on urination. However, on her urine, she had a urinary tract infection which she started on Macrobid during this hospitalization. Musculoskeletal: She has some diffuse back and joint pain but she is ambulating and moving all 4 extremities. Neurological: No CVA, paralysis, or paresthesias. She does have neuropathy of her legs. Endocrine: Diabetes mellitus type 2 and hypothyroidism. Integument: No rash, ulcers, change in moles, or yellow skin. PHYSICAL EXAMINATION: VITALS: Height 5 feet 2 inches, weight 187 pounds. Temperature 97.6, pulse 56, blood pressure 119/46, respiratory rate 20, pulse ox 96% on room air. HEENT: Pupils are equal, round, and reactive to light and accommodation. Extraocular muscles are intact. Throat is clear. Nose is clear. Tympanic membranes are castañeda. NECK: Supple. No jugular venous distention. No hepatojugular reflux. No carotid bruits. Thyroid is smooth. CARDIOVASCULAR: Regular rate and rhythm without murmurs, clicks, rubs, or gallops. RESPIRATORY: She has rales in the posterior bases, a little bit worse on the right side. ABDOMEN: Soft, slightly distended. No pain on palpation. Bowel sounds are present. EXTREMITIES: 1+ to 2+ pedal edema. Peripheral pulses are good. BREASTS: Exam deferred. GYNECOLOGICAL: Exam deferred. RECTAL: Exam deferred. Because of her hemoglobin, I will get a Hemoccult of her stool. GENITALIA: Deferred. NEUROLOGIC: Cranial nerves II-XII intact. No gross defects. Sensation normal, strength normal. Deep tendon reflexes equal bilaterally with Babinski negative. MENTAL STATUS: Alert and oriented x3. IMPRESSION: 1. Congestive heart failure. 2. Possible early pneumonia, right lower lobe. 3. Diabetes mellitus type 2. 4. History of atrial fibrillation. Ablation therapy in 2014. Normal sinus rhythm since then but she is on Eliquis 5 mg b.i.d. 5. Chronic obstructive pulmonary disease, stable. 6. Pancreatic insufficiency. 7. Diabetes mellitus type 2. 8. Hypothyroidism. 9. Gastroesophageal reflux disease. 10. Hypercholesterolemia. 11. Neuropathy of the legs. 12. Hypertension. PLAN: Diurese with 40 mg IV q.12 h. May need to add Aldactone if she does not diurese enough off. We will follow. Start Rocephin 1 g q.12 h. and Zithromax 500 mg daily in case she has early pneumonia. Looking at the chest x-ray, I am concerned about a right lower lobe infiltrate. EKG showing left bundle-branch block. No acute changes. Hemoglobin was 9.2 in the ER and dropped to 8.6. Troponins are negative at 2 time points. Her white count is 9100, potassium 4.5, BUN 24, creatinine 1.1. Her brain natriuretic peptide is 1079. TSH is 2.72. Urine showing 10-15 WBCs, 4+ bacteria. She is on Macrobid 100 mg b.i.d. Plan is to continue with the Lasix 40 mg IV, Rocephin 1 g q.12 h., azithromycin 500 mg daily, Macrobid 100 mg b.i.d. MTDD
[2018-09-11] MEDS: CEFTRIAXONE 1GM/50ML BAG 1 GM/50 ML BAG IVPB SCH (19:47)
[2018-09-11] MEDS: BIMATOPROST OP SCH (21:57)
[2018-09-11] MEDS: GABAPENTIN 100 MG CAPSULE PO SCH (21:58)
[2018-09-11] MEDS: PANTOPRAZOLE SODIUM 40 MG TABLET PO SCH (21:59)
[2018-09-11] MEDS: GUAIFENESIN/D-METH. 10 ML UDC PO PRN (22:09)
[2018-09-12] MEDS: ALBUTEROL HFA 8 GM INHALER INH PRN ×2 (04:16→15:28)
[2018-09-12] MEDS: CEFTRIAXONE 1GM/50ML BAG 1 GM/50 ML BAG IVPB SCH ×2 (06:39→19:05)
[2018-09-12] MEDS: GUAIFENESIN/D-METH. 10 ML UDC PO PRN ×3 (06:39→21:50)
[2018-09-12] MEDS: LEVOTHYROXINE SODIUM 25 MCG TABLET PO SCH (06:40)
[2018-09-12] MEDS: DIPHENOXYLATE HCL/ATROP 2.5/0.025MG TABLET PO SCH ×5 (06:40→21:48)
[2018-09-12] MEDS: LEVOTHYROXINE SODIUM 50 MCG TABLET PO SCH (06:40)
[2018-09-12 06:53] LABS: CREATININE 1.2 mg/dL (0.5-0.9)
[2018-09-12] MEDS: [UNRECOGNIZED DRUG - REMARK] PO SCH ×4 (08:17→21:49)
[2018-09-12] MEDS: NOVOLOG FLEXPEN (INSULIN ASPART) 100 UNITS/ML SQ SCH ×4 (08:18→22:04)
[2018-09-12] MEDS: AZITHROMYCIN 500 MG TABLET PO SCH (10:45)
[2018-09-12] MEDS: LOSARTAN POTASSIUM 100 MG TABLET PO SCH (10:45)
[2018-09-12] MEDS: APIXABAN 5MG TABLET PO SCH ×2 (10:45→21:48)
[2018-09-12] MEDS: AMLODIPINE BESYLATE 5MG TAB PO SCH ×2 (10:46→21:48)
[2018-09-12] MEDS: CARVEDILOL 12.5 MG TABLET PO SCH ×2 (10:46→21:47)
[2018-09-12] MEDS: POTASSIUM CHLORIDE 20 MEQ TABLET PO SCH ×2 (10:46→21:48)
[2018-09-12] MEDS: FUROSEMIDE IV 40MG/4ML VIAL IVP SCH ×2 (10:47→15:14)
[2018-09-12] MEDS: LEVEMIR FLEXTOUCH 100 UNIT/ML INSULIN PEN SQ SCH ×2 (10:49→21:59)
[2018-09-12] MEDS: BRIMONIDINE TARTRATE OP SCH ×2 (10:51→21:47)
[2018-09-12] MEDS: OLOPATADINE HCL OP SCH ×2 (10:51→21:47)
[2018-09-12] MEDS: Non-Formulary MISC (Cyclosporine [Restasis] 1 EACH) OP SCH ×2 (10:51→21:47)
[2018-09-12] MEDS: SPIRONOLACTONE 25 MG TAB PO SCH (11:47)
[2018-09-12] MEDS: BIMATOPROST OP SCH (21:47)
[2018-09-12] MEDS: GABAPENTIN 100 MG CAPSULE PO SCH (21:48)
[2018-09-12] MEDS: PANTOPRAZOLE SODIUM 40 MG TABLET PO SCH (21:49)
[2018-09-13] MEDS: ALBUTEROL HFA 8 GM INHALER INH PRN (03:36)
[2018-09-13 06:31] LABS: CREATININE 1.2 mg/dL (0.5-0.9)
[2018-09-13] MEDS: CEFTRIAXONE 1GM/50ML BAG 1 GM/50 ML BAG IVPB SCH ×2 (06:46→18:24)
[2018-09-13] MEDS: LEVOTHYROXINE SODIUM 25 MCG TABLET PO SCH (06:47)
[2018-09-13] MEDS: LEVOTHYROXINE SODIUM 50 MCG TABLET PO SCH (06:47)
[2018-09-13] MEDS: DIPHENOXYLATE HCL/ATROP 2.5/0.025MG TABLET PO SCH ×5 (06:47→21:53)
[2018-09-13] MEDS: ACETAMINOPHEN 325 MG TAB PO PRN ×2 (06:51→14:20)
[2018-09-13] MEDS: [UNRECOGNIZED DRUG - REMARK] PO SCH ×4 (08:34→21:52)
[2018-09-13] MEDS: FUROSEMIDE 40 MG TABLET PO SCH ×2 (09:19→15:39)
[2018-09-13] MEDS: AZITHROMYCIN 500 MG TABLET PO SCH (09:19)
[2018-09-13] MEDS: POTASSIUM CHLORIDE 20 MEQ TABLET PO SCH ×2 (09:19→21:52)
[2018-09-13] MEDS: APIXABAN 5MG TABLET PO SCH ×2 (09:19→21:52)
[2018-09-13] MEDS: SPIRONOLACTONE 25 MG TAB PO SCH (09:19)
[2018-09-13] MEDS: LOSARTAN POTASSIUM 100 MG TABLET PO SCH (09:19)
[2018-09-13] MEDS: CARVEDILOL 12.5 MG TABLET PO SCH ×2 (09:19→21:51)
[2018-09-13] MEDS: AMLODIPINE BESYLATE 5MG TAB PO SCH ×2 (09:20→21:53)
[2018-09-13] MEDS: LEVEMIR FLEXTOUCH 100 UNIT/ML INSULIN PEN SQ SCH ×2 (09:20→22:04)
[2018-09-13] MEDS: NOVOLOG FLEXPEN (INSULIN ASPART) 100 UNITS/ML SQ SCH ×4 (09:24→22:05)
[2018-09-13] MEDS: BRIMONIDINE TARTRATE OP SCH ×2 (09:34→22:12)
[2018-09-13] MEDS: Non-Formulary MISC (Cyclosporine [Restasis] 1 EACH) OP SCH ×2 (09:35→22:11)
[2018-09-13] MEDS: OLOPATADINE HCL OP SCH ×2 (09:35→22:11)
[2018-09-13] MEDS: GABAPENTIN 100 MG CAPSULE PO SCH (21:52)
[2018-09-13] MEDS: PANTOPRAZOLE SODIUM 40 MG TABLET PO SCH (21:53)
[2018-09-13] MEDS: BIMATOPROST OP SCH (22:10)
[2018-09-14] MEDS: LEVOTHYROXINE SODIUM 25 MCG TABLET PO SCH (06:10)
[2018-09-14] MEDS: DIPHENOXYLATE HCL/ATROP 2.5/0.025MG TABLET PO SCH ×5 (06:10→22:19)
[2018-09-14] MEDS: LEVOTHYROXINE SODIUM 50 MCG TABLET PO SCH (06:11)
[2018-09-14] MEDS: CEFTRIAXONE 1GM/50ML BAG 1 GM/50 ML BAG IVPB SCH (06:11)
[2018-09-14 06:42] LABS: CREATININE 1.2 mg/dL (0.5-0.9)
[2018-09-14] MEDS: [UNRECOGNIZED DRUG - REMARK] PO SCH ×4 (08:04→22:18)
[2018-09-14] MEDS: LEVEMIR FLEXTOUCH 100 UNIT/ML INSULIN PEN SQ SCH ×3 (08:42→22:31)
[2018-09-14] MEDS: NOVOLOG FLEXPEN (INSULIN ASPART) 100 UNITS/ML SQ SCH ×4 (08:46→22:31)
[2018-09-14] MEDS: AZITHROMYCIN 500 MG TABLET PO SCH (09:59)
[2018-09-14] MEDS: CARVEDILOL 12.5 MG TABLET PO SCH ×2 (09:59→22:19)
[2018-09-14] MEDS: LOSARTAN POTASSIUM 100 MG TABLET PO SCH (10:00)
[2018-09-14] MEDS: AMLODIPINE BESYLATE 5MG TAB PO SCH ×2 (10:00→22:19)
[2018-09-14] MEDS: APIXABAN 5MG TABLET PO SCH ×2 (10:03→22:19)
[2018-09-14] MEDS: FUROSEMIDE 40 MG TABLET PO SCH ×2 (10:04→15:57)
[2018-09-14] MEDS: Non-Formulary MISC (Cyclosporine [Restasis] 1 EACH) OP SCH ×2 (10:04→22:24)
[2018-09-14] MEDS: BRIMONIDINE TARTRATE OP SCH ×2 (10:04→22:24)
[2018-09-14] MEDS: POTASSIUM CHLORIDE 20 MEQ TABLET PO SCH (10:04)
[2018-09-14] MEDS: OLOPATADINE HCL OP SCH ×2 (10:04→22:24)
[2018-09-14] MEDS: SPIRONOLACTONE 25 MG TAB PO SCH (10:04)
[2018-09-14] MEDS ORDERED: FLUCONAZOLE 100 MG TABLET PO ONE (12:59)
[2018-09-14] MEDS: CEPHALEXIN 500 MG CAPSULE PO SCH ×2 (13:05→17:49)
[2018-09-14] MEDS: GABAPENTIN 100 MG CAPSULE PO SCH (22:18)
[2018-09-14] MEDS: PANTOPRAZOLE SODIUM 40 MG TABLET PO SCH (22:19)
[2018-09-14] MEDS: BIMATOPROST OP SCH (22:24)
[2018-09-14] MEDS: ALBUTEROL HFA 8 GM INHALER INH PRN (22:43)
[2018-09-15] MEDS: CEPHALEXIN 500 MG CAPSULE PO SCH ×2 (01:49→06:13)
[2018-09-15] MEDS: LEVOTHYROXINE SODIUM 50 MCG TABLET PO SCH (06:12)
[2018-09-15] MEDS: LEVOTHYROXINE SODIUM 25 MCG TABLET PO SCH (06:12)
[2018-09-15] MEDS: DIPHENOXYLATE HCL/ATROP 2.5/0.025MG TABLET PO SCH ×2 (06:13→08:06)
[2018-09-15] MEDS: ALBUTEROL HFA 8 GM INHALER INH PRN (06:19)
[2018-09-15 06:36] LABS: CREATININE 1.2 mg/dL (0.5-0.9)
[2018-09-15] MEDS: [UNRECOGNIZED DRUG - REMARK] PO SCH (08:07)
--- NOTE | 2018-09-15 08:14 | Discharge Note ---
VTE H&P Assessment - Risk for VTE Risk for VTE: Yes Risk Level: Moderate Risk Assessment Date: 09/11/18 Risk Assessment Time: 08:00 (patient on eliquis) VTE Orders Placed or Will Be Placed: Yes Discharge Medications - Discharge Medications Prescriptions: Ascorbic Acid [Vitamin C] 1,000 mg PO DAILY #90 tab Azithromycin [Zithromax] 500 mg PO DAILY #7 tab Ferrous Sulfate [Iron] 325 mg PO DAILY #90 tablet Fluconazole [Diflucan] 150 mg PO ONCE #1 tab Spironolactone [Aldactone] 25 mg PO DAILY #30 tablet Home Medications: Ambulatory Orders Brimonidine Tartrate [Alphagan P] 1 drop OP TID 04/18/14 [Last Taken 09/10/18] Cyclosporine [Restasis] 1 each OP BID 04/18/14 [Last Taken 09/10/18] Fish Oil/Dha/Epa [Fish Oil 1,200 mg Fish Oil] 1 each PO DAILY 04/18/14 [Last Taken 09/10/18] Insulin Aspart [Novolog] 0 unit SQ QIDINS PRN 04/18/14 [Last Taken 09/10/18] Insulin Glargine,Hum.rec.anlog [Lantus Solostar] 23 units SQ BID 04/18/14 [Last Taken 09/10/18] Multivitamin [Multi-Vitamin Daily] 1 each PO DAILY 04/18/14 [Last Taken 09/10/18 ] Olopatadine HCl [Patanol] 1 drop OP BID 04/18/14 [Last Taken 09/10/18] Omeprazole [Prilosec] 20 mg PO QHS 04/18/14 [Last Taken 09/10/18] Pitavastatin Calcium [Livalo] 4 mg PO DAILY 04/18/14 [Last Taken 09/10/18] Apixaban [Eliquis] 5 mg PO BID 11/05/14 [Last Taken 09/10/18] Losartan Potassium [Cozaar] 100 mg PO DAILY 05/29/15 [Last Taken 09/10/18] Bimatoprost [Lumigan] 1 drop OP QHS 06/18/16 [Last Taken 09/10/18] Carvedilol [Coreg] 25 mg PO BID 06/18/16 [Last Taken 09/10/18] Levothyroxine Sodium [Synthroid] 12.5 mg PO DAILYTHY 06/18/16 [Last Taken ] Lipase/Protease/Amylase [Zenpep Dr 5,000 Unit Capsule] 0 cap PO QIDWMHS [Last Taken 09/10/18] Clonidine HCl [Catapres] 0.1 mg PO BID PRN 11/19/16 [Last Taken 09/10/18] Diphenoxylate HCl/Atropine [Lomotil 2.5-0.025 mg Tablet] 1 each PO 5XD 11/19/16 [Last Taken 09/10/18] Furosemide [Lasix] 40 mg PO BID 11/19/16 [Last Taken 09/10/18] Calcium Carbonate/Vitamin D3 [Calcium 600 + Vit D Tablet] 1 each PO DAILY [Last Taken 09/10/18] Amlodipine Besylate [Norvasc] 5 mg PO BID 11/22/17 [Last Taken 09/10/18] Gabapentin [Neurontin] 200 mg PO QHS 05/21/18 [Last Taken 09/10/18] Levothyroxine Sodium [Synthroid] 50 mcg PO DAILY 09/10/18 [Last Taken Unknown] Ascorbic Acid [Vitamin C] 1,000 mg PO DAILY #90 tab 09/15/18 [Last Taken Unknown ] Azithromycin [Zithromax] 500 mg PO DAILY #7 tab 09/15/18 [Last Taken Unknown] Cephalexin [Keflex] 500 mg PO Q6H #28 capsule 09/15/18 [Last Taken Unknown] Ferrous Sulfate [Iron] 325 mg PO DAILY #90 tablet 09/15/18 [Last Taken Unknown] Fluconazole [Diflucan] 150 mg PO ONCE #1 tab 09/15/18 [Last Taken Unknown] Spironolactone [Aldactone] 25 mg PO DAILY #30 tablet 09/15/18 [Last Taken Unknown] Discharge Note - Date Date of Discharge Note: 09/15/18 Disposition: Home, Self-Care Condition: (1) Good Additional Instructions: patient to stop eliquis on sep 16 because having EGD and colonoscopy on sep 19 and should restart eliquis a day after the procedure stop potassium new medication started aldactone 25 mg one a day, will need potassium checked in one to two weeks started keflex 500 mg four times a day for her UTI sensitive to keflex also on azithromycin 500 mg for 7 days for bronchitis and laryngitis one dose of diflucan for possibility of developing yeast infection hg 9.0 and started on iron and vit c , iron levels 19 low weight is 187 pounds 2 liter fluid restriction follow up with Dr Shah in 2 to [address] Prescriptions: Ascorbic Acid [Vitamin C] 1,000 mg PO DAILY #90 tab Azithromycin [Zithromax] 500 mg PO DAILY #7 tab Cephalexin [Keflex] 500 mg PO Q6H #28 capsule Ferrous Sulfate [Iron] 325 mg PO DAILY #90 tablet Fluconazole [Diflucan] 150 mg PO ONCE #1 tab Spironolactone [Aldactone] 25 mg PO DAILY #30 tablet Forms: Patient Portal Access Activity at Discharge: Increase Activity as Tolerated Diet at Discharge: Low Salt Diet
[2018-09-15] MEDS: NOVOLOG FLEXPEN (INSULIN ASPART) 100 UNITS/ML SQ SCH (09:04)
[2018-09-15] MEDS ORDERED: FERROUS SULFATE 325 MG TAB PO SCH (10:00)
[2018-09-15] MEDS ORDERED: ASCORBIC ACID 500 MG TAB PO SCH (10:00)
[2018-09-15] MEDS: BRIMONIDINE TARTRATE OP SCH (10:21)
[2018-09-15] MEDS: SPIRONOLACTONE 25 MG TAB PO SCH (10:21)
[2018-09-15] MEDS: APIXABAN 5MG TABLET PO SCH (10:22)
[2018-09-15] MEDS: CARVEDILOL 12.5 MG TABLET PO SCH (10:22)
[2018-09-15] MEDS: FUROSEMIDE 40 MG TABLET PO SCH (10:22)
[2018-09-15] MEDS: Non-Formulary MISC (Cyclosporine [Restasis] 1 EACH) OP SCH (10:22)
[2018-09-15] MEDS: AZITHROMYCIN 500 MG TABLET PO SCH (10:23)
[2018-09-15] MEDS: AMLODIPINE BESYLATE 5MG TAB PO SCH (10:23)
[2018-09-15] MEDS: LEVEMIR FLEXTOUCH 100 UNIT/ML INSULIN PEN SQ SCH (10:23)
[2018-09-15] MEDS: OLOPATADINE HCL OP SCH (10:23)
[2018-09-15] MEDS: LOSARTAN POTASSIUM 100 MG TABLET PO SCH (10:23)
--- NOTE | 2018-09-15 13:40 | Discharge Summary ---
DATE OF DISCHARGE: 09/15/2018 at 8:30 a.m. Attending physician: Jesus Yin DO DISCHARGE DIAGNOSES: 1. Acute exacerbation of CHF. 2. Acute bronchitis and laryngitis. 3. Chronic anemia. Hemoglobin is 9.0. She is going for an EGD and colonoscopy on 09/19. We will start iron and vitamin C therapy. Her serum iron issue is iron deficient anemia with a serum iron of 19. 4. History of atrial fibrillation and normal sinus rhythm, on Eliquis. We will stop the Eliquis tomorrow 09/16 because she is going for an EGD on 09/19 and colonoscopy. 5. Diabetes mellitus type 2. 6. COPD, stable. 7. Pancreatic insufficiency. 8. Hypothyroidism. 9. GERD. 10. Hypercholesterolemia. 11. Neuropathy of the legs. 12. Hypertension. 13. Urinary tract infection, sensitive to Keflex. REASON FOR HOSPITALIZATION: Dyspnea and retention of fluids in her legs and abdomen. This 72-year-old female presented to the emergency department from Dr. Shah's office, seen by a nurse practitioner and concerns were increased edema of the legs and shortness of breath with exertion. She was progressively getting worse over the last 2 weeks when she said it has actually been coming on for about a month. She has increased her Lasix to 3 times a day at home, 40 mg, she normally takes 40 mg twice a day. She saw Dr. Shah's office nurse practitioner who sent her to the hospital for evaluation. Chest x-ray showing mild pulmonary congestion and possible infiltrate with a little pleural effusion of the right lung, she has a dry cough. She also has a history of COPD, diabetes mellitus, and congestive heart failure. SIGNIFICANT FINDINGS: EKG showing normal sinus rhythm with left bundle branch block. LABORATORY: Her last hemoglobin was 9.0, it was up from 8.6, potassium slightly high at 5.0 with sodium of 139 and chloride of 101, BUN is 25, creatinine is 1.2. Her sugars have been coming down in the normal range. She has been covering it by scale. Her serum iron level is low at 19. Troponin T was negative. Stool for occult blood was negative. Chest x-ray shows stable cardiac silhouette enlargement, suggestion of mild bilateral perihilar basilar interstitial pulmonary opacity, nonspecific, but could represent edema, blunting of the right lateral costophrenic angle similar to slightly increased when compared to radiographs from 05/21/2018; could represent a trace pleural effusion or chronic pleural thickening. THERAPY PROVIDED: The patient was started on IV Lasix 40 mg twice a day and added Aldactone 25 mg once a day. Her potassium was stopped because her potassium creeped up to 5.1 and I advised her to stay off the potassium at home while she is on the Aldactone. She was stated on antibiotics Rocephin and Azithromycin and she was also on Macrobid because she had an outpatient UA that showed she was sensitive to Macrobid, however she was also sensitive to Keflex so stop the Macrobid. Her hemoglobin is stable. HOSPITAL COURSE: She gradually has improved. Her weight is basically the same as when she came in at 187, but there is less pedal edema. CONDITION ON DISCHARGE: Much improved. I recommended that she stop the Eliquis tomorrow, Sunday 09/16, because of the procedure she is going to have on Wednesday 09/19; EGD and colonoscopy. I also recommended stopping the potassium., starting new medication Aldactone 25 mg once a day with the Lasix 40 mg twice a day to keep the water weight down. We will also continue Keflex 500 mg 4 times a day for 7 days for the urinary tract infection, which is sensitive to Keflex on the culture that was done on 09/10. Continue the Azithromycin 500 mg for 7 days for the bronchitis laryngitis, 1 dose of Diflucan will be given to her in case she develops a urinary yeast infection. Hemoglobin was 9.0. We will start her on iron and vitamin C. Iron levels were 19. Weight is 187 pounds on discharge. She is on 2 liter fluid restriction. She should follow up with Dr. Shah in 2 to 7 days, her primary doctor. MEDICATIONS ON DISCHARGE: 1. Vitamin C 1000 mg a day. 2. Azithromycin 500 mg a day for 7 days. 3. Ferrous sulfate 325 a day. 4. Diflucan 1 pill in case she develops a yeast infection. 5. Aldactone 25 mg a day. 6. Stop the potassium chloride. I recommend getting a basic metabolic profile in 1 to 2 weeks. 7. Alphagan 1 drop t.i.d. 8. Restasis 1 drop b.i.d. 9. Fish oil 1 a day. 10. Insulin NovoLog to scale. 11. Lantus 23 units b.i.d. 12. Multivitamins 1 a day. 13. Patanol 1 drop b.i.d. 14. Prilosec 20 mg daily. 15. Livalo 4 mg daily. 16. Eliquis 4 mg b.i.d. We will stop it tomorrow because of her EGD and colonoscopy. 17. Cozaar 100 mg per day. 18. Lumigan 1 drop bedtime. 19. Coreg 25 mg b.i.d. 20. Levothyroxine 12.5 mg daily. 21. Pancreatic enzymes q.i.d. with meals. 22. Clonidine 0.1 mg b.i.d. p.r.n. hypertension. 23. Lomotil p.r.n. 24. Lasix 40 mg b.i.d. 25. Calcium and vitamin D 1 a day. 26. Norvasc 5 mg b.i.d. 27. Neurontin 200 mg at bedtime, sometimes 300 mg at bedtime. 28. Levothyroxine 50 daily, so she has a total of Levothyroxine at 62.5 mg a day. 29. Ascorbic acid as stated is 1000 mg daily. 30. Keflex 500 mg for 7 days. 31. Azithromycin 500 mg for 7 days. DISCHARGE INSTRUCTIONS: Plan to see Dr. Shah in 2 to 7 days. MTDD
== END 2018-09-15 10:19 | disposition home or self-care (01) | DRG 291 ==
LOC: ER 13:08 → MEDSURG 16:23
PROVIDERS: ADMIT Emergency Medicine; ATTEND Emergency Medicine
DX: I50.9 Heart failure, unspecified (principal); J18.9 Pneumonia, unspecified organism; N39.0 Urinary tract infection, site not specified; J40 Bronchitis, not specified as acute or chronic; J04.0 Acute laryngitis; R05 Cough; J44.9 Chronic obstructive pulmonary disease, unspecified; I48.91 Unspecified atrial fibrillation; Z79.01 Long term (current) use of anticoagulants; E11.9 Type 2 diabetes mellitus without complications; Z79.4 Long term (current) use of insulin; E03.9 Hypothyroidism, unspecified; M81.0 Age-related osteoporosis without current pathological fracture; M19.90 Unspecified osteoarthritis, unspecified site; Z86.14 Personal history of Methicillin resistant Staphylococcus aureus infection; Z87.891 Personal history of nicotine dependence
CPT/HCPCS: 36416; 71046; 80048; 80053; 81001; 82272; 82550; 82553; 82948; 83540; 83880; 84443; 84484; 85018; 85027; 85610; 85730; 93005; 93010; 94640; 94760; 94761; 96374; 99223; 99233; 99239; 99285; J0696; J1940

== ENCOUNTER 2018-11-17 11:18 | Emergency (ER) | payer MEDICARE, OTHER ==
[2018-11-17 11:41] LABS: BASO % 0.6 % (0-6); EOS % 1.7 % (0-6); GRAN % 63.6 % (47-80); HEMOGLOBIN 10.8 gm/dl (11.6-16.0); LYMPH % 21.8 % (16-45); MEAN CELL VOLUME 70.6 fl (81-97); MEAN CORPUSCULAR HEMOGLOBIN 21.7 pg (27-33); MEAN CORPUSCULAR HGB CONC 30.9 g/dl (32-36); MEAN PLATELET VOLUME 10.1 fl (7.4-10.4); MONO % 12.3 % (0-9); PLATELET COUNT 216 K/uL (130-400); RED BLOOD COUNT 4.96 M/uL (3.80-5.40); WHITE BLOOD COUNT W/O DIFF 8.3 K/uL (4.2-12.2)
[2018-11-17 11:50] LABS: BLOOD UREA NITROGEN 18 mg/dL (8-23); CREATININE 0.9 mg/dL (0.5-0.9); EST GLOMERULAR FILTRATION RATE > 60 mL/min
[2018-11-17 11:51] LABS: TOTAL PROTEIN 7.6 g/dL (6.6-8.7)
[2018-11-17 11:53] LABS: GLUCOSE,RANDOM 90 mg/dL (74-109)
[2018-11-17 11:56] LABS: ALB/GLOB RATIO 1.2 (1.1-1.8); ALBUMIN 4.2 g/dL (4.0-5.0); ALKALINE PHOSPHATASE 113 U/L (35-104); ALT/SGPT 15 U/L (<33); AST/SGOT 16 U/L (10.0-35.0)
[2018-11-17 12:07] LABS: THYROID STIMULATING HORMONE 2.31 uIU/mL (0.270-4.20)
--- NOTE | 2018-11-17 14:09 | Emergency Department Record ---
History of Present Illness - General Source: Patient Mode of Arrival: Wheelchair Limitations: No limitations - History of Present Illness Initial Comments: pt has been feeling palpitations. she has had this in the past and it was afib , she had an ablation a few years ago and it has been better since then Complaint: Palpitations Onset/Timin -: Month(s) Context: Occurred during exertion, Occurred during rest Arrythmia History: Atrial fibrillation Associated Symptoms: Shortness of breath <Dalila Jackson - Last Filed: 11/17/18 14:51> <TEJA PAIZ - Last Filed: 11/19/18 01:37> - General Chief Complaint: Arrythmia/Palpitations Stated Complaint: AFIB Time Seen by Provider: 11/17/18 11:25 - Related Data Previous Rx's Medication Instructions Recorded Ascorbic Acid [Vitamin C] 1,000 mg PO DAILY #90 tab 09/15/18 Azithromycin [Zithromax] 500 mg PO DAILY #7 tab 09/15/18 Cephalexin [Keflex] 500 mg PO Q6H #28 capsule 09/15/18 Ferrous Sulfate [Iron] 325 mg PO DAILY #90 tablet 09/15/18 Fluconazole [Diflucan] 150 mg PO ONCE #1 tab 09/15/18 Spironolactone [Aldactone] 25 mg PO DAILY #30 tablet 09/15/18 Allergies Allergy/AdvReac Type Severity Reaction Status Date / Time hydrocodone bitartrate Allergy Unknown RASH Verified 09/10/18 13:18 [From VICODIN] hydromorphone HCl AdvReac Unknown NAUSEA AND Verified 09/10/18 13:18 [From DILAUDID] VOMITING morphine [MORPHINE] AdvReac Unknown NAUSEA AND Verified 09/10/18 13:18 VOMITING Travel Screening - Travel/Exposure Within Last 30 Days Have you traveled within the last 30 days?: No <Dalila Jackson - Last Filed: 11/17/18 14:51> Review of Systems Reviewed: No additional complaints except as noted below Constitutional: Reports: As per HPI. Denies: Chills, Fever, Malaise, Night sweats, Weakness, Weight change Eyes: Reports: As per HPI. Denies: Eye discharge, Eye pain, Photophobia, Vision change ENT: Reports: As per HPI. Denies: Congestion, Dental pain, Ear pain, Epistaxis , Hearing loss, Throat pain Respiratory: Reports: As per HPI. Denies: Cough, Dyspnea, Hemoptysis, Stridor, Wheezes Cardiovascular: Reports: As per HPI. Denies: Arrhythmia, Chest pain, Dyspnea on exertion, Edema, Murmurs, Orthopnea, Palpitations, Paroxysmal nocturnal dyspnea, Rheumatic Fever, Syncope Endocrine: Reports: As per HPI. Denies: Fatigue, Heat or cold intolerance, Polydipsia, Polyuria Gastrointestinal: Reports: As per HPI. Denies: Abdominal pain, Constipation, Diarrhea, Hematemesis, Hematochezia, Melena, Nausea, Vomiting Genitourinary: Reports: As per HPI. Denies: Abnormal menses, Discharge, Dyspareunia, Dysuria, Frequency, Hematuria, Incontinence, Retention, Urgency Musculoskeletal: Reports: As per HPI. Denies: Arthralgia, Back pain, Gout, Joint swelling, Myalgia, Neck pain Skin: Reports: As per HPI. Denies: Bruising, Change in color, Change in hair/ nails, Lesions, Pruritus, Rash Neurological: Reports: As per HPI. Denies: Abnormal gait, Confusion, Headache, Numbness, Paresthesias, Seizure, Tingling, Tremors, Vertigo, Weakness Psychiatric: Reports: As per HPI. Denies: Anxiety, Auditory hallucinations, Depression, Homicidal thoughts, Suicidal thoughts, Visual hallucinations Hematological/Lymphatic: Reports: As per HPI. Denies: Anemia, Blood Clots, Easy bleeding, Easy bruising, Swollen glands <Dalila Jackson L - Last Filed: 11/17/18 14:51> Past Medical History - SOCIAL HISTORY Smoking Status: Former smoker - RESPIRATORY Hx Respiratory Disorders: Yes Hx Asthma: Yes Hx Pneumonia: Yes - CARDIOVASCULAR Hx Cardio Disorders: Yes Hx CHF: Yes Hx Edema: Yes Hx Hypertension: Yes Hx Irregular Heartbeat: Yes (A-fib) Hx Palpitations: Yes Comment:: skips beat - NEURO Hx Neuro Disorders: No - GI Hx GI Disorders: Yes Hx Reflux: Yes Comment:: trouble with gastric enzymes - Hx Genitourinary Disorders: No - ENDOCRINE Hx Endocrine Disorders: Yes Hx Diabetes: Yes (type 2 with insulin) Hx Thyroid Disease: Yes (hypo) - MUSCULOSKELETAL Hx Musculoskeletal Disorders: Yes Hx Arthritis: Yes Hx Osteoporosis: Yes - PSYCH Hx Psych Problems: No - HEMATOLOGY/ONCOLOGY Hx Hematology/Oncology Disorders: Yes Hx Bruising: Yes <Dalila Jackson - Last Filed: 11/17/18 14:51> Family Medical History Any Significant Family History?: Yes Hx Diabetes: Father, Mother, Brother/Sister Hx Heart Disease: Mother Hx Resp Disorders: Father <Dalila Jackson - Last Filed: 11/17/18 14:51> Physical Exam - General General Appearance: Alert, Oriented x3, Cooperative, Mild distress - Head Head exam: Normal inspection - Eye Eye exam: Normal appearance, PERRL, EOMI Pupils: Normal accommodation - ENT ENT exam: Normal exam, Mucous membranes moist, Normal external ear exam, Normal orophraynx Ear exam: Normal external inspection. negative: External canal tenderness Nasal Exam: Normal inspection. negative: Discharge, Sinus tenderness Mouth exam: Normal external inspection, Tongue normal Teeth exam: Normal inspection. negative: Dental caries Throat exam: Normal inspection. negative: Tonsillar erythema, Tonsillar exudate - Neck Neck exam: Normal inspection, Full ROM. negative: Tenderness - Respiratory Respiratory exam: Normal lung sounds bilaterally. negative: Respiratory distress - Cardiovascular Cardiovascular Exam: Regular rate, Normal rhythm, Normal heart sounds - GI/Abdominal GI/Abdominal exam: Soft, Normal bowel sounds. negative: Tenderness - Rectal Rectal exam: Deferred - exam: Deferred - Extremities Extremities exam: Normal inspection, Full ROM, Normal capillary refill. negative: Tenderness - Back Back exam: Reports: Normal inspection, Full ROM. Denies: Muscle spasm, Rash noted, Tenderness - Neurological Neurological exam: Alert, CN II-XII intact, Normal gait, Oriented X3 - Psychiatric Psychiatric exam: Normal affect, Normal mood - Skin Skin exam: Dry, Intact, Normal color, Warm <Dalila Jackson - Last Filed: 11/17/18 14:51> Course Vital Signs 11/17/18 11/17/18 11/17/18 11:20 11:27 13:39 Temperature 98.1 F Pulse Rate 63 Pulse Rate [ 63 [employer] Assistant ] Respiratory 16 16 Rate Blood Pressure 142/63 Blood Pressure 118/52 [Left Arm] Pulse Ox 99 93 L - Reevaluation(s) Reevaluation #1: 11/17/18 14:52 pt was watched for hours and no arrythmias seen except occasional pacs. attempted to reach dr shore at 2 different numbers for 2 hours. 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 ] Pulse Rate [ Pulse Ox Probe] Respiratory 16 16 Rate Blood Pressure 142/63 Blood Pressure 118/52 [Left Arm] Pulse Ox 99 93 L 11/17/18 15:24 Temperature 97.7 F Pulse Rate Pulse Rate [ [employer] Assistant ] Pulse Rate [ 54 L Pulse Ox Probe] Respiratory 17 Rate Blood Pressure Blood Pressure 109/58 [Left Arm] Pulse Ox 95 <TEJA PAIZ - Last Filed: 11/19/18 01:37> Medical Decision Making - Lab Data Result diagrams: 11/17/18 11:25 11/17/18 11:25 Lab Results 11/17/18 11/17/18 Range/Units 11:25 11:25 WBC 8.3 (4.2-12.2) K/uL RBC 4.96 (3.80-5.40) M/uL Hgb 10.8 L (11.6-16.0) gm/dl Hct 35.0 (35.0-47.0) % MCV 70.6 L (81-97) fl MCH 21.7 L (27-33) pg MCHC 30.9 L (32-36) g/dl RDW 18.0 H (11.5-14.5) % Plt Count 216 (130-400) K/uL MPV 10.1 (7.4-10.4) fl Gran % 63.6 (47-80) % Lymphocytes % 21.8 (16-45) % Monocytes % 12.3 H (0-9) % Eosinophils % 1.7 (0-6) % Basophils % 0.6 (0-6) % Sodium 141 (136-145) mmol/L Potassium 4.1 (3.4-4.5) mmol/L Chloride 100 (98-107) mmol/L Carbon Dioxide 27.0 (22-29) mmol/L Anion Gap 14.0 (7-16) BUN 18 (8-23) mg/dL Creatinine 0.9 (0.5-0.9) mg/dL Estimated GFR > 60 mL/min Random Glucose 90 (74-109) mg/dL Calcium 10.5 H (8.8-10.2) mg/dL Total Bilirubin 0.30 (0.2-1.0) mg/dL AST 16 (10.0-35.0) U/L ALT 15 (<33) U/L Alkaline Phosphatase 113 H (35-104) U/L Troponin T < 0.010 (0-0.010) ng/mL Total Protein 7.6 (6.6-8.7) g/dL Albumin 4.2 (4.0-5.0) g/dL Globulin 3.4 (1.4-4.8) gm/dL Albumin/Globulin Ratio 1.2 (1.1-1.8) TSH 2.31 (0.270-4.20) uIU/mL <Dalila Jackson L - Last Filed: 11/17/18 14:51> - Management Options MDM Management: No Additional Work-up Planned - Data Complexity MDM Data: Labs Ordered and/or Reviewed, X-Ray Ordered and/or Reviewed - Lab Data Result diagrams: 11/17/18 11:25 11/17/18 11:25 Lab Results 11/17/18 11/17/18 Range/Units 11:25 11:25 WBC 8.3 (4.2-12.2) K/uL RBC 4.96 (3.80-5.40) M/uL Hgb 10.8 L (11.6-16.0) gm/dl Hct 35.0 (35.0-47.0) % MCV 70.6 L (81-97) fl MCH 21.7 L (27-33) pg MCHC 30.9 L (32-36) g/dl RDW 18.0 H (11.5-14.5) % Plt Count 216 (130-400) K/uL MPV 10.1 (7.4-10.4) fl Gran % 63.6 (47-80) % Lymphocytes % 21.8 (16-45) % Monocytes % 12.3 H (0-9) % Eosinophils % 1.7 (0-6) % Basophils % 0.6 (0-6) % Sodium 141 (136-145) mmol/L Potassium 4.1 (3.4-4.5) mmol/L Chloride 100 (98-107) mmol/L Carbon Dioxide 27.0 (22-29) mmol/L Anion Gap 14.0 (7-16) BUN 18 (8-23) mg/dL Creatinine 0.9 (0.5-0.9) mg/dL Estimated GFR > 60 mL/min Random Glucose 90 (74-109) mg/dL Calcium 10.5 H (8.8-10.2) mg/dL Total Bilirubin 0.30 (0.2-1.0) mg/dL AST 16 (10.0-35.0) U/L ALT 15 (<33) U/L Alkaline Phosphatase 113 H (35-104) U/L Troponin T < 0.010 (0-0.010) ng/mL Total Protein 7.6 (6.6-8.7) g/dL Albumin 4.2 (4.0-5.0) g/dL Globulin 3.4 (1.4-4.8) gm/dL Albumin/Globulin Ratio 1.2 (1.1-1.8) TSH 2.31 (0.270-4.20) uIU/mL <TEJA PAIZ - Last Filed: 11/19/18 01:37> Disposition Disposition: Discharge <Dalila Jackson - Last Filed: 11/17/18 14:51> <TEJA PAIZ - Last Filed: 11/19/18 01:37> Clinical Impression: Heart palpitations Disposition: Home, Self-Care Condition: (1) Good Instructions: Heart Palpitations (ED) Additional Instructions: follow up with concrete swimming pool installer on saturday. return sooner if worse. no caffeine or cold meds. Forms: Patient Portal Access Quality - Blood Pressure Screening Does Patient Have Any of the Following: No Blood Pressure Classification: Hypertensive Reading Systolic Measurement: 142 Diastolic Measurement: 63 <Dalila Jackson - Last Filed: 11/17/18 14:51> - Blood Pressure Screening Does Patient Have Any of the Following: No Blood Pressure Classification: Hypertensive Reading Systolic Measurement: 142 Diastolic Measurement: 63 <TEJA PAIZ - Last Filed: 11/19/18 01:37>
== END 2018-11-17 15:35 | disposition home or self-care (01) ==
LOC: ER 11:18
DX: R00.2 Palpitations (principal); R06.02 Shortness of breath; I50.9 Heart failure, unspecified; E11.9 Type 2 diabetes mellitus without complications; Z79.4 Long term (current) use of insulin; Z79.01 Long term (current) use of anticoagulants
CPT/HCPCS: 80053; 84443; 84484; 85025; 93005; 93010; 93225; 93226

== ENCOUNTER 2018-11-17 22:13 | Emergency (ER) | payer MEDICARE, OTHER ==
--- NOTE | 2018-11-17 22:30 | Emergency Department Record ---
History of Present Illness - General Chief Complaint: Chest Pain Stated Complaint: AFIB Time Seen by Provider: 11/17/18 22:29 Source: Patient Mode of Arrival: Ambulatory - History of Present Illness Initial Comments: The patient was seen here 11 hours ago for tight band around her chest, had blood work, got a Holter monitor and was sent home on it after no arrhythmia during her observation period. tonight she was checking her blood pressure and her machine said she was in atrial fibrillation so she returned. The chest tightness has been going on for several months and is unchanged. She denies new symptoms and is scheduled to return in a few days to have her Holter read. Onset/Timin -: Days(s) Onset: During rest Pain Location: Substernal Pain Radiation: None Severity scale (1-10): 10 Quality: Tightness Consistency: Constant Improves With: Nothing Worsens With: Nothing - Related Data Previous Rx's Medication Instructions Recorded Ascorbic Acid [Vitamin C] 1,000 mg PO DAILY #90 tab 09/15/18 Azithromycin [Zithromax] 500 mg PO DAILY #7 tab 09/15/18 Cephalexin [Keflex] 500 mg PO Q6H #28 capsule 09/15/18 Ferrous Sulfate [Iron] 325 mg PO DAILY #90 tablet 09/15/18 Fluconazole [Diflucan] 150 mg PO ONCE #1 tab 09/15/18 Spironolactone [Aldactone] 25 mg PO DAILY #30 tablet 09/15/18 Allergies Allergy/AdvReac Type Severity Reaction Status Date / Time hydrocodone bitartrate Allergy Unknown RASH Verified 09/10/18 13:18 [From VICODIN] hydromorphone HCl AdvReac Unknown NAUSEA AND Verified 09/10/18 13:18 [From DILAUDID] VOMITING morphine [MORPHINE] AdvReac Unknown NAUSEA AND Verified 09/10/18 13:18 VOMITING Travel Screening - Travel/Exposure Within Last 30 Days Have you traveled within the last 30 days?: No Review of Systems Reviewed: No additional complaints except as noted below Constitutional: Reports: As per HPI. Denies: Chills, Fever, Malaise, Night sweats, Weakness, Weight change Eyes: Reports: As per HPI. Denies: Eye discharge, Eye pain, Photophobia, Vision change ENT: Reports: As per HPI. Denies: Congestion, Dental pain, Ear pain, Epistaxis , Hearing loss, Throat pain Respiratory: Reports: As per HPI. Denies: Cough, Dyspnea, Hemoptysis, Stridor, Wheezes Cardiovascular: Reports: As per HPI. Denies: Arrhythmia, Chest pain, Dyspnea on exertion, Edema, Murmurs, Orthopnea, Palpitations, Paroxysmal nocturnal dyspnea, Rheumatic Fever, Syncope Endocrine: Reports: As per HPI. Denies: Fatigue, Heat or cold intolerance, Polydipsia, Polyuria Gastrointestinal: Reports: As per HPI. Denies: Abdominal pain, Constipation, Diarrhea, Hematemesis, Hematochezia, Melena, Nausea, Vomiting Genitourinary: Reports: As per HPI. Denies: Abnormal menses, Discharge, Dyspareunia, Dysuria, Frequency, Hematuria, Incontinence, Retention, Urgency Musculoskeletal: Reports: As per HPI. Denies: Arthralgia, Back pain, Gout, Joint swelling, Myalgia, Neck pain Skin: Reports: As per HPI. Denies: Bruising, Change in color, Change in hair/ nails, Lesions, Pruritus, Rash Neurological: Reports: As per HPI. Denies: Abnormal gait, Confusion, Headache, Numbness, Paresthesias, Seizure, Tingling, Tremors, Vertigo, Weakness Psychiatric: Reports: As per HPI. Denies: Anxiety, Auditory hallucinations, Depression, Homicidal thoughts, Suicidal thoughts, Visual hallucinations Hematological/Lymphatic: Reports: As per HPI. Denies: Anemia, Blood Clots, Easy bleeding, Easy bruising, Swollen glands Past Medical History - SOCIAL HISTORY Smoking Status: Former smoker Alcohol Use: None Drug Use: None - RESPIRATORY Hx Respiratory Disorders: Yes Hx Asthma: Yes Hx Pneumonia: Yes - CARDIOVASCULAR Hx Cardio Disorders: Yes Hx CHF: Yes Hx Edema: Yes Hx Hypertension: Yes Hx Irregular Heartbeat: Yes (A-fib) Hx Palpitations: Yes Comment:: skips beat - NEURO Hx Neuro Disorders: No - GI Hx GI Disorders: Yes Hx Reflux: Yes Comment:: trouble with gastric enzymes - Hx Genitourinary Disorders: No - ENDOCRINE Hx Endocrine Disorders: Yes Hx Diabetes: Yes (type 2 with insulin) Hx Thyroid Disease: Yes (hypo) - MUSCULOSKELETAL Hx Musculoskeletal Disorders: Yes Hx Arthritis: Yes Hx Osteoporosis: Yes - PSYCH Hx Psych Problems: No - HEMATOLOGY/ONCOLOGY Hx Hematology/Oncology Disorders: Yes Hx Bruising: Yes Family Medical History Any Significant Family History?: Yes Hx Diabetes: Father, Mother, Brother/Sister Hx Heart Disease: Mother Hx Resp Disorders: Father Physical Exam - General General Appearance: Alert, Oriented x3, Cooperative, No acute distress - Head Head exam: Normal inspection - Eye Eye exam: Normal appearance, PERRL Pupils: Normal accommodation - ENT ENT exam: Normal exam, Mucous membranes moist, Normal external ear exam, Normal orophraynx, TM's normal bilaterally Ear exam: Normal external inspection. negative: External canal tenderness Nasal Exam: Normal inspection. negative: Discharge, Sinus tenderness Mouth exam: Normal external inspection, Tongue normal Teeth exam: Normal inspection. negative: Dental caries Throat exam: Normal inspection. negative: Tonsillar erythema, Tonsillar exudate - Neck Neck exam: Normal inspection, Full ROM. negative: Tenderness - Respiratory Respiratory exam: Normal lung sounds bilaterally. negative: Respiratory distress - Cardiovascular Cardiovascular Exam: Regular rate, Normal rhythm, Normal heart sounds - GI/Abdominal GI/Abdominal exam: Soft, Normal bowel sounds. negative: Tenderness - Rectal Rectal exam: Deferred - exam: Deferred - Extremities Extremities exam: Normal inspection, Full ROM, Normal capillary refill, Pedal edema (chronic bilateral unchanged leg edema, ). negative: Calf tenderness, Tenderness - Back Back exam: Reports: Normal inspection, Full ROM. Denies: Muscle spasm, Rash noted, Tenderness - Neurological Neurological exam: Alert, Normal gait, Oriented X3, Reflexes normal - Psychiatric Psychiatric exam: Normal affect, Normal mood - Skin Skin exam: Dry, Intact, Normal color, Warm Course Vital Signs 11/17/18 22:19 Temperature 97.9 F Pulse Rate [ 66 Bak[employer] Decorator ] Respiratory 20 Rate Blood Pressure 149/67 [Left Arm] Pulse Ox 95 - Reevaluation(s) Reevaluation #1: 11/17/18 23:44 Repeat troponin is unchanged from earlier at < 0.01. Patient is concerned about the band around her chest which she has had for over 5 months. She wsa instructed to follow this up with Dr. Shah as it is not any acute problem and does not involve heart damage. All questions answered. Ready for DC. Medical Decision Making - Management Options MDM Management: No Additional Work-up Planned - Data Complexity MDM Data: Labs Ordered and/or Reviewed (Troponin <0.01 as before. earlier today) , EKG Ordered and/or Reviewed - EKG Data -: EKG Interpreted by Me EKG: No Acute Changes, Unchanged From Previous (Unchanged from 11 hours ago: LBBB, 65 per minute) Disposition Disposition: Discharge Clinical Impression: Sensation of chest tightness, LBBB (left bundle branch block) Disposition: Home, Self-Care Condition: (1) Good Instructions: Chest Pain (ED), Noncardiac Chest Pain (ED) Additional Instructions: Home to bed. Contnue present medication. Follow with Dr. Beasley as needed. Follow up with Dr. Shah in office for further care. Quality - Quality Measures Quality Measures: N/A - Blood Pressure Screening Does Patient Have Any of the Following: No Blood Pressure Classification: Hypertensive Reading Systolic Measurement: 149 Diastolic Measurement: 67 Screening for High Blood Pressure: Patient Exclusion, Hx of HTN [G9744]
== END 2018-11-18 00:09 | disposition home or self-care (01) ==
LOC: ER 22:13
DX: R00.2 Palpitations (principal); R07.89 Other chest pain; R06.02 Shortness of breath; I44.7 Left bundle-branch block, unspecified; I10 Essential (primary) hypertension; I50.9 Heart failure, unspecified; E11.9 Type 2 diabetes mellitus without complications; E03.9 Hypothyroidism, unspecified; Z79.4 Long term (current) use of insulin; Z87.891 Personal history of nicotine dependence
CPT/HCPCS: 80053; 84443; 84484; 85025; 93005; 93010; 93225; 93226; 99284

== ENCOUNTER 2019-01-05 08:00 | Emergency (ER) | payer MEDICARE, OTHER ==
--- NOTE | 2019-01-05 08:39 | Emergency Department Record ---
History of Present Illness - General Chief complaint: Nausea, Vomiting, Diarrhea Time Seen by Provider: 01/05/19 08:24 Source: Patient, RN notes reviewed Mode of Arrival: Ambulatory - History of Present Illness Initial comments: diarrhea times 10 for 3 days and today abdominal cramping and diarrhea. No antibiotics now and she doesn't remember when she had any antibiotics and was in [place] 3 weeks ago and she was in CHF. Her weight is down 20 pounds since she was in [place] 3 weeks ago. ate the same food. Patient has chronic diarrhea. She has 2-3 BM's typically Patient ate a bowel of cereal this am for breakfast.Patient has atrial fib and CHF and no chest pain now. MD complaint: Diarrhea Onset/Timin -: Days(s) Description of Diarrhea: Water Location: Diffuse Radiation: None Quality: Cramping Consistency: Intermittent Improves with: None Worsens with: None Associated Symptoms: Loss of appetite - Related Data Home Medications Medication Instructions Recorded Confirmed Last Taken Ferrous Sulfate [Iron] 65 mg PO DAILY 01/05/19 01/05/19 Unknown Hydralazine HCl 25 mg PO DAILY 01/05/19 01/05/19 Unknown Ipratropium/Albuterol [Duoneb] 3 ml IH Q6H 01/05/19 01/05/19 Unknown Isosorbide Mononitrate [Imdur] 30 mg PO DAILY 01/05/19 01/05/19 Unknown L. Rhamnosus GG/Inulin [Culturelle 1 each PO DAILY 01/05/19 01/05/19 Unknown Probiotics Capsule] Potassium Chloride [Klor-Con] 20 meq PO BID 01/05/19 01/05/19 Unknown Previous Rx's Medication Instructions Recorded Ascorbic Acid [Vitamin C] 1,000 mg PO DAILY #90 tab 09/15/18 Allergies Allergy/AdvReac Type Severity Reaction Status Date / Time hydrocodone bitartrate Allergy Unknown RASH Verified 01/05/19 08:10 [From VICODIN] hydromorphone HCl AdvReac Unknown NAUSEA AND Verified 01/05/19 08:10 [From DILAUDID] VOMITING morphine [MORPHINE] AdvReac Unknown NAUSEA AND Verified 01/05/19 08:10 VOMITING cephalexin [From Keflex] AdvReac yeast Verified 01/05/19 08:10 infection Travel Screening - Travel/Exposure Within Last 30 Days Have you traveled within the last 30 days?: No Review of Systems Reviewed: No additional complaints except as noted below Constitutional: Reports: As per HPI. Denies: Chills, Fever, Malaise, Night sweats, Weakness, Weight change Eyes: Reports: As per HPI. Denies: Eye discharge, Eye pain, Photophobia, Vision change ENT: Reports: As per HPI. Denies: Congestion, Dental pain, Ear pain, Epistaxis , Hearing loss, Throat pain Respiratory: Reports: As per HPI. Denies: Cough, Dyspnea, Hemoptysis, Stridor, Wheezes Cardiovascular: Reports: As per HPI. Denies: Arrhythmia, Chest pain, Dyspnea on exertion, Edema, Murmurs, Orthopnea, Palpitations, Paroxysmal nocturnal dyspnea, Rheumatic Fever, Syncope Endocrine: Reports: As per HPI. Denies: Fatigue, Heat or cold intolerance, Polydipsia, Polyuria Gastrointestinal: Reports: As per HPI, Abdominal pain, Diarrhea. Denies: Constipation, Hematemesis, Hematochezia, Melena, Nausea, Vomiting Genitourinary: Reports: As per HPI. Denies: Abnormal menses, Discharge, Dyspareunia, Dysuria, Frequency, Hematuria, Incontinence, Retention, Urgency Musculoskeletal: Reports: As per HPI. Denies: Arthralgia, Back pain, Gout, Joint swelling, Myalgia, Neck pain Skin: Reports: As per HPI. Denies: Bruising, Change in color, Change in hair/ nails, Lesions, Pruritus, Rash Neurological: Reports: As per HPI. Denies: Abnormal gait, Confusion, Headache, Numbness, Paresthesias, Seizure, Tingling, Tremors, Vertigo, Weakness Psychiatric: Reports: As per HPI. Denies: Anxiety, Auditory hallucinations, Depression, Homicidal thoughts, Suicidal thoughts, Visual hallucinations Hematological/Lymphatic: Reports: As per HPI. Denies: Anemia, Blood Clots, Easy bleeding, Easy bruising, Swollen glands Past Medical History - SOCIAL HISTORY Smoking Status: Former smoker Alcohol Use: None Drug Use: None - RESPIRATORY Hx Respiratory Disorders: Yes Hx Asthma: Yes Hx Pneumonia: Yes - CARDIOVASCULAR Hx Cardio Disorders: Yes Hx CHF: Yes Hx Edema: Yes Hx Hypertension: Yes Hx Irregular Heartbeat: Yes (A-fib) Hx Palpitations: Yes Comment:: skips beat - NEURO Hx Neuro Disorders: No - GI Hx GI Disorders: Yes Hx Reflux: Yes Comment:: frequent diarrhea - Hx Genitourinary Disorders: No - ENDOCRINE Hx Endocrine Disorders: Yes Hx Diabetes: Yes (type 2 with insulin) Hx Thyroid Disease: Yes (hypo) - MUSCULOSKELETAL Hx Musculoskeletal Disorders: Yes Hx Arthritis: Yes Hx Osteoporosis: Yes - PSYCH Hx Psych Problems: No - HEMATOLOGY/ONCOLOGY Hx Hematology/Oncology Disorders: Yes Hx Bruising: Yes Family Medical History Any Significant Family History?: Yes Hx Diabetes: Father, Mother, Brother/Sister Hx Heart Disease: Mother Hx Resp Disorders: Father Physical Exam - General General Appearance: Alert, Oriented x3, Cooperative, No acute distress - Head Head exam: Normal inspection - Eye Eye exam: Normal appearance, PERRL Pupils: Normal accommodation - ENT ENT exam: Normal exam, Mucous membranes moist, Normal external ear exam, Normal orophraynx, TM's normal bilaterally Ear exam: Normal external inspection. negative: External canal tenderness Nasal Exam: Normal inspection. negative: Discharge, Sinus tenderness Mouth exam: Normal external inspection, Tongue normal Teeth exam: Normal inspection. negative: Dental caries Throat exam: Normal inspection. negative: Tonsillar erythema, Tonsillar exudate - Neck Neck exam: Normal inspection, Full ROM. negative: Tenderness - Respiratory Respiratory exam: Normal lung sounds bilaterally. negative: Respiratory distress - Cardiovascular Cardiovascular Exam: Regular rate, Normal rhythm, Normal heart sounds - GI/Abdominal GI/Abdominal exam: Soft, Normal bowel sounds. negative: Tenderness - Rectal Rectal exam: Deferred - exam: Deferred - Extremities Extremities exam: Normal inspection, Full ROM, Normal capillary refill. negative: Tenderness - Back Back exam: Reports: Normal inspection, Full ROM. Denies: Muscle spasm, Rash noted, Tenderness - Neurological Neurological exam: Alert, Normal gait, Oriented X3, Reflexes normal - Psychiatric Psychiatric exam: Normal affect, Normal mood - Skin Skin exam: Dry, Intact, Normal color, Warm Course Vital Signs 01/05/19 08:04 Temperature 97.8 F Pulse Rate 75 Respiratory 18 Rate Blood Pressure 141/65 Pulse Ox 97 - Reevaluation(s) Reevaluation #1: patient feels better since she got here and unable to give us a stool specimen 01/05/19 10:21 Medical Decision Making - Lab Data Result diagrams: 01/05/19 08:50 01/05/19 08:50 Disposition Clinical Impression: Gastroenteritis Diarrhea Qualifiers: Diarrhea type: unspecified type Qualified Code(s): R19.7 - Diarrhea, unspecified Instructions: Chronic Diarrhea (ED), Gastroenteritis (ED) Additional Instructions: clear liquids and bland foods today follow up with family in 3-4 days please give stool specimen container to bring back her stool continue her lomotil five times a day Forms: Patient Portal Access Time of Disposition: 10:26 Quality - Quality Measures Quality Measures: N/A - Blood Pressure Screening Does Patient Have Any of the Following: No, Active Dx of HTN Blood Pressure Classification: Hypertensive Reading Systolic Measurement: 141 Diastolic Measurement: 65 Screening for High Blood Pressure: Patient Exclusion, Hx of HTN [G9744]
[2019-01-05] MEDS: 0.9 % SODIUM CHLORIDE 1000ML 1,000 ML IV ONE (09:00)
[2019-01-05 09:09] LABS: BASO % 0.3 % (0-6); GRAN % 62.1 % (47-80); HEMATOCRIT 38.2 % (35.0-47.0); HEMOGLOBIN 12.2 gm/dl (11.6-16.0); LYMPH % 23.6 % (16-45); MEAN CORPUSCULAR HEMOGLOBIN 23.3 pg (27-33); MEAN CORPUSCULAR HGB CONC 31.9 g/dl (32-36); MEAN PLATELET VOLUME 10.7 fl (7.4-10.4); PLATELET COUNT 221 K/uL (130-400); RED BLOOD COUNT 5.23 M/uL (3.80-5.40); RED CELL DISTRIBUTION WIDTH 20.6 % (11.5-14.5); WHITE BLOOD COUNT W/O DIFF 8.7 K/uL (4.2-12.2)
[2019-01-05 09:20] LABS: BLOOD UREA NITROGEN 23 mg/dL (8-23); EST GLOMERULAR FILTRATION RATE 57 mL/min; LIPASE 7 U/L (13-60); TOTAL PROTEIN 7.1 g/dL (6.6-8.7)
[2019-01-05 09:22] LABS: GLUCOSE,RANDOM 267 mg/dL (74-109)
[2019-01-05 09:25] LABS: ALBUMIN 3.8 g/dL (4.0-5.0); ALKALINE PHOSPHATASE 102 U/L (45-87); ALT/SGPT 20 U/L (<33); AST/SGOT 21 U/L (10.0-35.0); BILIRUBIN,DIRECT < 0.2 mg/dL (0-0.3)
== END 2019-01-05 10:48 | disposition home or self-care (01) ==
LOC: ER 08:00
DX: K52.9 Noninfective gastroenteritis and colitis, unspecified (principal); R11.2 Nausea with vomiting, unspecified; I48.91 Unspecified atrial fibrillation; I10 Essential (primary) hypertension; I50.9 Heart failure, unspecified; E11.9 Type 2 diabetes mellitus without complications; Z79.4 Long term (current) use of insulin; Z87.891 Personal history of nicotine dependence
CPT/HCPCS: 80048; 80076; 83690; 84484; 85025; 93005; 93010; 96360; 96361; 99284

== ENCOUNTER 2019-01-10 08:46 | Emergency (ER) | payer MEDICARE, OTHER ==
[2019-01-10 09:31] LABS: BASO % 0.4 % (0-6); EOS % 1.8 % (0-6); GRAN % 63.2 % (47-80); HEMATOCRIT 36.1 % (35.0-47.0); HEMOGLOBIN 11.6 gm/dl (11.6-16.0); LYMPH % 19.8 % (16-45); MEAN CELL VOLUME 73.1 fl (81-97); MEAN CORPUSCULAR HEMOGLOBIN 23.5 pg (27-33); MEAN CORPUSCULAR HGB CONC 32.1 g/dl (32-36); MEAN PLATELET VOLUME 10.3 fl (7.4-10.4); MONO % 14.8 % (0-9); PLATELET COUNT 218 K/uL (130-400); RED BLOOD COUNT 4.94 M/uL (3.80-5.40); WHITE BLOOD COUNT W/O DIFF 11.4 K/uL (4.2-12.2)
[2019-01-10] MEDS ORDERED: 0.9% SODIUM CHLORIDE 250ML BAG IV ONE ×2 (09:34→11:14)
[2019-01-10 09:43] LABS: BILIRUBIN,TOTAL 0.3 mg/dL (0.2-1.0); CREATININE 1.1 mg/dL (0.5-0.9); TOTAL PROTEIN 6.8 g/dL (6.6-8.7)
[2019-01-10 09:48] LABS: ALB/GLOB RATIO 1.3 (1.1-1.8); ALBUMIN 3.8 g/dL (4.0-5.0)
--- NOTE | 2019-01-10 09:58 | Emergency Department Record ---
History of Present Illness - General Chief complaint: Nausea, Vomiting, Diarrhea Stated complaint: DIARRHEA Time Seen by Provider: 01/10/19 09:10 Source: Patient Mode of Arrival: Ambulatory Limitations: No limitations - History of Present Illness Initial comments: pt has had diarrhea for a week that is getting no better. she was here 5 days ago and seen. she had a neg cdiff. she has crampy pain intermittently. she called her GI doctor who she has been in contact with and he told her to come in the ed because she might be dehydrated MD complaint: Diarrhea Description of Diarrhea: Water Associated Abdominal Pain: Yes Location: Diffuse Quality: Cramping Consistency: Intermittent Associated Symptoms: Denies other symptoms - Related Data Previous Rx's Medication Instructions Recorded Ascorbic Acid [Vitamin C] 1,000 mg PO DAILY #90 tab 09/15/18 Allergies Allergy/AdvReac Type Severity Reaction Status Date / Time hydrocodone bitartrate Allergy Unknown RASH Verified 01/05/19 08:10 [From VICODIN] hydromorphone HCl AdvReac Unknown NAUSEA AND Verified 01/05/19 08:10 [From DILAUDID] VOMITING morphine [MORPHINE] AdvReac Unknown NAUSEA AND Verified 01/05/19 08:10 VOMITING cephalexin [From Keflex] AdvReac yeast Verified 01/05/19 08:10 infection Travel Screening - Travel/Exposure Within Last 30 Days Have you traveled within the last 30 days?: No Review of Systems Reviewed: No additional complaints except as noted below Constitutional: Reports: As per HPI. Denies: Chills, Fever, Malaise, Night sweats, Weakness, Weight change Eyes: Reports: As per HPI. Denies: Eye discharge, Eye pain, Photophobia, Vision change ENT: Reports: As per HPI. Denies: Congestion, Dental pain, Ear pain, Epistaxis , Hearing loss, Throat pain Respiratory: Reports: As per HPI. Denies: Cough, Dyspnea, Hemoptysis, Stridor, Wheezes Cardiovascular: Reports: As per HPI. Denies: Arrhythmia, Chest pain, Dyspnea on exertion, Edema, Murmurs, Orthopnea, Palpitations, Paroxysmal nocturnal dyspnea, Rheumatic Fever, Syncope Endocrine: Reports: As per HPI. Denies: Fatigue, Heat or cold intolerance, Polydipsia, Polyuria Gastrointestinal: Reports: As per HPI. Denies: Abdominal pain, Constipation, Diarrhea, Hematemesis, Hematochezia, Melena, Nausea, Vomiting Genitourinary: Reports: As per HPI. Denies: Abnormal menses, Discharge, Dyspareunia, Dysuria, Frequency, Hematuria, Incontinence, Retention, Urgency Musculoskeletal: Reports: As per HPI. Denies: Arthralgia, Back pain, Gout, Joint swelling, Myalgia, Neck pain Skin: Reports: As per HPI. Denies: Bruising, Change in color, Change in hair/ nails, Lesions, Pruritus, Rash Neurological: Reports: As per HPI. Denies: Abnormal gait, Confusion, Headache, Numbness, Paresthesias, Seizure, Tingling, Tremors, Vertigo, Weakness Psychiatric: Reports: As per HPI. Denies: Anxiety, Auditory hallucinations, Depression, Homicidal thoughts, Suicidal thoughts, Visual hallucinations Hematological/Lymphatic: Reports: As per HPI. Denies: Anemia, Blood Clots, Easy bleeding, Easy bruising, Swollen glands Past Medical History - SOCIAL HISTORY Smoking Status: Former smoker Alcohol Use: None Drug Use: None - RESPIRATORY Hx Respiratory Disorders: Yes Hx Asthma: Yes Hx Pneumonia: Yes - CARDIOVASCULAR Hx Cardio Disorders: Yes Hx CHF: Yes Hx Edema: Yes Hx Hypertension: Yes Hx Irregular Heartbeat: Yes (A-fib) Hx Palpitations: Yes Comment:: skips beat - NEURO Hx Neuro Disorders: No - GI Hx GI Disorders: Yes Hx Reflux: Yes Comment:: frequent diarrhea - Hx Genitourinary Disorders: No - ENDOCRINE Hx Endocrine Disorders: Yes Hx Diabetes: Yes (type 2 with insulin) Hx Thyroid Disease: Yes (hypo) - MUSCULOSKELETAL Hx Musculoskeletal Disorders: Yes Hx Arthritis: Yes Hx Osteoporosis: Yes - PSYCH Hx Psych Problems: No - HEMATOLOGY/ONCOLOGY Hx Hematology/Oncology Disorders: Yes Hx Bruising: Yes Family Medical History Any Significant Family History?: Yes Hx Diabetes: Father, Mother, Brother/Sister Hx Heart Disease: Mother Hx Resp Disorders: Father Physical Exam - General General Appearance: Alert, Oriented x3, Cooperative, Mild distress - Head Head exam: Normal inspection - Eye Eye exam: Normal appearance, PERRL, EOMI Pupils: Normal accommodation - ENT ENT exam: Normal exam, Mucous membranes moist, Normal external ear exam, Normal orophraynx Ear exam: Normal external inspection. negative: External canal tenderness Nasal Exam: Normal inspection. negative: Discharge, Sinus tenderness Mouth exam: Normal external inspection, Tongue normal Teeth exam: Normal inspection. negative: Dental caries Throat exam: Normal inspection. negative: Tonsillar erythema, Tonsillar exudate - Neck Neck exam: Normal inspection, Full ROM. negative: Tenderness - Respiratory Respiratory exam: Normal lung sounds bilaterally. negative: Respiratory distress - Cardiovascular Cardiovascular Exam: Regular rate, Normal rhythm, Normal heart sounds - GI/Abdominal GI/Abdominal exam: Soft, Normal bowel sounds. negative: Tenderness - Rectal Rectal exam: Deferred - exam: Deferred - Extremities Extremities exam: Normal inspection, Full ROM, Normal capillary refill. negative: Tenderness - Back Back exam: Reports: Normal inspection, Full ROM. Denies: Muscle spasm, Rash noted, Tenderness - Neurological Neurological exam: Alert, CN II-XII intact, Normal gait, Oriented X3 - Psychiatric Psychiatric exam: Normal affect, Normal mood - Skin Skin exam: Dry, Intact, Normal color, Warm Course Vital Signs 01/10/19 01/10/19 09:10 09:20 Temperature 97.5 F L Pulse Rate 68 Pulse Rate [ 71 Pulse Ox Probe] Respiratory 20 17 Rate Blood Pressure 103/54 Blood Pressure 154/83 [Right Arm] Pulse Ox 99 97 - Reevaluation(s) Reevaluation #1: 01/10/19 13:29 pt has been here almost 5 hours and has had no diarrhea. she is feeling some better. she has an appt in 2 days w her gi doc Medical Decision Making - Lab Data Result diagrams: 01/10/19 09:17 01/10/19 09:17 Lab Results 01/10/19 01/10/19 01/10/19 Range/Units 09:17 09:17 09:17 WBC 11.4 (4.2-12.2) K/uL RBC 4.94 (3.80-5.40) M/uL Hgb 11.6 (11.6-16.0) gm/dl Hct 36.1 (35.0-47.0) % MCV 73.1 L (81-97) fl MCH 23.5 L (27-33) pg MCHC 32.1 (32-36) g/dl RDW 20.0 H (11.5-14.5) % Plt Count 218 (130-400) K/uL MPV 10.3 (7.4-10.4) fl Gran % 63.2 (47-80) % Lymphocytes % 19.8 (16-45) % Monocytes % 14.8 H (0-9) % Eosinophils % 1.8 (0-6) % Basophils % 0.4 (0-6) % Sodium 136 (136-145) mmol/L Potassium 4.0 (3.4-4.5) mmol/L Chloride 102 (98-107) mmol/L Carbon Dioxide 20.0 L (22-29) mmol/L Anion Gap 14.0 (7-16) BUN 20 (8-23) mg/dL Creatinine 1.1 H (0.5-0.9) mg/dL Estimated GFR 51 mL/min Random Glucose 146 H (74-109) mg/dL Lactic Acid 1.9 (0.5-2.2) mmol/L Calcium 10.0 (8.8-10.2) mg/dL Total Bilirubin 0.30 (0.2-1.0) mg/dL AST 19 (10.0-35.0) U/L ALT 16 (<33) U/L Alkaline Phosphatase 94 H (45-87) U/L Total Protein 6.8 (6.6-8.7) g/dL Albumin 3.8 L (4.0-5.0) g/dL Globulin 3.0 (1.4-4.8) gm/dL Albumin/Globulin Ratio 1.3 (1.1-1.8) Lipase 7 L (13-60) U/L Disposition Disposition: Discharge Clinical Impression: Dehydration Diarrhea Qualifiers: Diarrhea type: unspecified type Qualified Code(s): R19.7 - Diarrhea, unspecified Disposition: Home, Self-Care Condition: (1) Good Instructions: Acute Diarrhea (ED) Additional Instructions: follow up with GI doctor without fail on saturday. return sooner if worse. push fluids Forms: Patient Portal Access Quality - Quality Measures Quality Measures: N/A - Blood Pressure Screening Does Patient Have Any of the Following: No Blood Pressure Classification: Normal BP Reading Systolic Measurement: 103 Diastolic Measurement: 54 Screening for High Blood Pressure: < Normal BP, F/U Not Required > [G8770]
[2019-01-10 10:00] LABS: CRYPTOSPORIDIUM PARVUM ANTIGEN NOT DETECTED (NOT DETECT); GIARDIA LAMBLIA ANTIGEN NOT DETECTED (NOT DETECT); ROTOVIRUS NOT DETECTED (NOT DETECT)
== END 2019-01-10 13:54 | disposition home or self-care (01) ==
LOC: ER 08:46
DX: E86.0 Dehydration (principal); R11.2 Nausea with vomiting, unspecified; R19.7 Diarrhea, unspecified; I10 Essential (primary) hypertension; I48.91 Unspecified atrial fibrillation; I50.9 Heart failure, unspecified; Z87.891 Personal history of nicotine dependence
CPT/HCPCS: 80053; 83605; 83690; 83880; 85025; 87329; 87425; 96360; 99284

== ENCOUNTER 2019-06-11 15:04 | Emergency (ER) | payer MEDICARE, OTHER ==
--- NOTE | 2019-06-11 15:59 | Emergency Department Record ---
History of Present Illness - General Chief complaint: Extremity Problem Stated complaint: HIP PAIN Time Seen by Provider: 06/11/19 15:28 Source: Patient Mode of Arrival: Ambulatory Limitations: No limitations - History of Present Illness Initial comments: Pt to our department after her primary doctor requested she got to [facility] ED for evaluation. Pt had MRI 6 days ago that was reported to show an "infection of her hip". Pt relates pain in her right hip that goes to her buttock and mid lateral leg. She has difficulty with walking but this is not new as she has used a walker for 4 years. She has no fever, no illness, no nausea, no numbness to the leg. No incontinence of urine or bowel. She has hx of spinal surgery "about 4 years ago at [facility]" but she is unaware of what that was for. Onset/Timin -: Week(s) Location: Right, Thigh History of Same: Yes Severity scale (1-10): 10 Quality: Sharp Consistency: Constant Improves with: Nothing Worsens with: Nothing Associated Symptoms: Denies other symptoms - Related Data Previous Rx's Medication Instructions Recorded Ascorbic Acid [Vitamin C] 1,000 mg PO DAILY #90 tab 09/15/18 Allergies Allergy/AdvReac Type Severity Reaction Status Date / Time hydrocodone bitartrate Allergy Unknown RASH Verified 06/11/19 15:22 [From VICODIN] hydromorphone HCl AdvReac Unknown NAUSEA AND Verified 06/11/19 15:22 [From DILAUDID] VOMITING morphine [MORPHINE] AdvReac Unknown NAUSEA AND Verified 06/11/19 15:22 VOMITING cephalexin [From Keflex] AdvReac yeast Verified 06/11/19 15:22 infection Travel Screening - Travel/Exposure Within Last 30 Days Have you traveled within the last 30 days?: No - Travel/Exposure Within Last Year Have you traveled outside the [place] in the last year?: No - Additonal Travel Details Have you been exposed to anyone with a communicable illness?: No - Travel Symptoms Symptom Screening: None Review of Systems Constitutional: Denies: Chills, Fever, Weakness Eyes: Denies: Eye discharge, Photophobia ENT: Denies: Congestion Respiratory: Denies: Cough, Dyspnea Cardiovascular: Denies: Arrhythmia, Chest pain Endocrine: Denies: Fatigue Gastrointestinal: Denies: Abdominal pain, Diarrhea, Nausea, Vomiting Musculoskeletal: Reports: As per HPI Skin: Denies: Bruising, Rash Neurological: Reports: As per HPI. Denies: Headache, Numbness, Tingling, Weakness Psychiatric: Denies: Anxiety Hematological/Lymphatic: Denies: Anemia Past Medical History - SOCIAL HISTORY Smoking Status: Former smoker Alcohol Use: None Drug Use: None - RESPIRATORY Hx Respiratory Disorders: Yes Hx Asthma: Yes Hx Pneumonia: Yes - CARDIOVASCULAR Hx Cardio Disorders: Yes Hx CHF: Yes Hx Edema: Yes Hx Hypertension: Yes Hx Irregular Heartbeat: Yes (A-fib) Hx Palpitations: Yes Comment:: skips beat - NEURO Hx Neuro Disorders: No - GI Hx GI Disorders: Yes Hx Reflux: Yes Comment:: frequent diarrhea - Hx Genitourinary Disorders: No - ENDOCRINE Hx Endocrine Disorders: Yes Hx Diabetes: Yes (type 2 with insulin) Hx Thyroid Disease: Yes (hypo) - MUSCULOSKELETAL Hx Musculoskeletal Disorders: Yes Hx Arthritis: Yes Hx Osteoporosis: Yes - PSYCH Hx Psych Problems: No - HEMATOLOGY/ONCOLOGY Hx Hematology/Oncology Disorders: Yes Hx Bruising: Yes Family Medical History Any Significant Family History?: Yes Hx Diabetes: Father, Mother, Brother/Sister Hx Heart Disease: Mother Hx Resp Disorders: Father Physical Exam - General General Appearance: Alert, Oriented x3, Cooperative, No acute distress - Head Head exam: Atraumatic - Eye Eye exam: Normal appearance, PERRL - ENT ENT exam: Normal exam, Mucous membranes moist, Normal external ear exam, Normal orophraynx, TM's normal bilaterally - Neck Neck exam: Normal inspection, Full ROM. negative: Tenderness - Respiratory Respiratory exam: Normal lung sounds bilaterally. negative: Respiratory distress - Cardiovascular Cardiovascular Exam: Regular rate, Normal rhythm, Normal heart sounds - GI/Abdominal GI/Abdominal exam: Soft, Normal bowel sounds. negative: Distended, Guarding, Tenderness - Extremities Extremities exam: Normal inspection. negative: Joint swelling (no tenderness over the right hip with good ROM. ), Pedal edema, Tenderness - Back Back exam: Denies: CVA tenderness (R), CVA tenderness (L), Muscle spasm, Paraspinal tenderness, Vertebral tenderness - Neurological Neurological exam: Alert, Motor sensory deficit (DTR +2/4 = patellar, able to stand and walk with walker support, good toe and heel walk. ), Oriented X3 - Psychiatric Psychiatric exam: Normal affect, Normal mood - Skin Skin exam: Normal color. negative: Rash Course Vital Signs 06/11/19 15:32 Temperature 98.1 F Pulse Rate 64 Respiratory 20 Rate Blood Pressure 140/61 Pulse Ox 94 L - Reevaluation(s) Reevaluation #1: 06/11/19 16:06 MRI obtained and scanned to chart. Read as "Chronic sequela of discitis". Discussed with Tristan at Dr. Shah's office. At this time the patient has no new neuro findings and is not febrile or toxic appearing. She is comfortable and we discussed her pain control at home. Her meds list is extensive. Tristan will arrange Neurosurgery office follow up with the patients established neurosurgeon. Tristan will contact the patient with the appointment time. Pt and are comfortable with the plan and are aware that they can return here at any time. If symptoms are worse they are encouraged to head to [place] where the NS team is available. They understand. Disposition Disposition: Discharge Clinical Impression: Discitis of lumbar region Disposition: Home, Self-Care Condition: (2) Stable Additional Instructions: Home and continue current meds. Await call from Tristan at Dr. Shah's office with plan for Neurosurgery office visit. Use your walker at all times when up. Return to the ED as needed. Forms: Patient Portal Access Time of Disposition: 15:57 Quality - Quality Measures Quality Measures: N/A - Blood Pressure Screening Does Patient Have Any of the Following: No Blood Pressure Classification: Hypertensive Reading Systolic Measurement: 140 Diastolic Measurement: 61 Screening for High Blood Pressure: < Pre-Hypertensive BP, F/U Documented > [G8950] Pre-Hypertensive Follow-up Interventions: Follow-up with rescreen every year.
== END 2019-06-11 16:05 | disposition home or self-care (01) ==
LOC: ER 15:04
DX: M46.46 Discitis, unspecified, lumbar region (principal)
CPT/HCPCS: 99282

== ENCOUNTER 2019-11-14 16:19 | Emergency (ER) | payer MEDICARE, OTHER ==
[2019-11-14 16:41] LABS: ABSOLUTE NEUTROPHIL COUNT 4.94; BASO % 0.6 % (0-6); EOS % 3.4 % (0-6); GRAN % 57.5 % (47-80); HEMATOCRIT 38.8 % (35.0-47.0); HEMOGLOBIN 12.9 gm/dl (11.6-16.0); LYMPH % 27.1 % (16-45); MEAN CELL VOLUME 84.7 fl (81-97); MEAN CORPUSCULAR HEMOGLOBIN 28.2 pg (27-33); MEAN CORPUSCULAR HGB CONC 33.2 g/dl (32-36); MEAN PLATELET VOLUME 10.8 fl (7.4-10.4); MONO % 11.4 % (0-9); PLATELET COUNT 165 K/uL (130-400); RED BLOOD COUNT 4.58 M/uL (3.80-5.40); RED CELL DISTRIBUTION WIDTH 12.7 % (11.5-14.5); WHITE BLOOD COUNT W/O DIFF 8.6 K/uL (4.2-12.2)
[2019-11-14 17:03] LABS: CKMB 3.1 ng/mL (<3.77)
--- NOTE | 2019-11-14 18:19 | Emergency Department Record ---
History of Present Illness - General Chief complaint: Weakness Stated complaint: DIZZY FACE NUMB Time Seen by Provider: 11/14/19 16:24 Source: Patient, Family Mode of Arrival: Wheelchair Limitations: No limitations - History of Present Illness Initial comments: pt brought in by for stroke like symptoms.pt had difficulty with speech this morning and couldnt spell her name. this worsened this afternoon. she has no focal deficits. she is improving. she c/o numbness in both hands. she has slight expressive aphasia MD Complaint: Generalized weakness, Numbness Onset/Timin -: Minutes(s) Location: Face Severity: Moderate Severity scale (1-10): 1 Consistency: Other Associated Symptoms: Confusion, Headaches - [place] Coma Scale Eye Response: (4) Open spontaneously Motor Response: (6) Obeys commands Verbal Response: (3) Inappropriate words [place] Total: 13 - Symptoms of Stroke Onset of Symptoms Date: 11/14/19 Onset of Symptoms Time: 15:30 Symptoms of stroke: Incoherent Speech, Onset of Confusion, Speech Dysfunction, Unable to Think Clearly, Unsteady When Walking - Related Data Home Medications Medication Instructions Recorded Confirmed Last Taken Calcium Carbonate/Vitamin D3 1 each PO DAILY 11/14/19 11/14/19 1 Day Ago [Calcium 500-Vit D3 600 Caplet] ~11/13/19 Colchicine 0.6 mg PO DAILY 11/14/19 11/14/19 1 Day Ago ~11/13/19 Ibuprofen [Motrin 400Mg] 400 mg PO Q8H PRN 11/14/19 11/14/19 1 Day Ago ~11/13/19 Linaclotide [Linzess] 145 mcg PO DAILY 11/14/19 11/14/19 1 Day Ago ~11/13/19 Previous Rx's Medication Instructions Recorded Ascorbic Acid [Vitamin C] 1,000 mg PO DAILY #90 tab 09/15/18 Allergies Allergy/AdvReac Type Severity Reaction Status Date / Time pregabalin [From Lyrica] Allergy HYPERSENSIT Verified 11/14/19 16:36 IVITY hydromorphone HCl AdvReac Unknown NAUSEA AND Verified 11/14/19 16:30 [From DILAUDID] VOMITING morphine [MORPHINE] AdvReac Unknown NAUSEA AND Verified 11/14/19 16:30 VOMITING cephalexin [From Keflex] AdvReac yeast Verified 11/14/19 16:30 infection Travel Screening - Travel/Exposure Within Last 30 Days Have you traveled within the last 30 days?: No - Travel/Exposure Within Last Year Have you traveled outside the [place] in the last year?: No - Additonal Travel Details Have you been exposed to anyone with a communicable illness?: No - Travel Symptoms Symptom Screening: None Review of Systems Reviewed: No additional complaints except as noted below Constitutional: Reports: As per HPI. Denies: Chills, Fever, Malaise, Night sweats, Weakness, Weight change Eyes: Reports: As per HPI. Denies: Eye discharge, Eye pain, Photophobia, Vision change ENT: Reports: As per HPI. Denies: Congestion, Dental pain, Ear pain, Epistaxis, Hearing loss, Throat pain Respiratory: Reports: As per HPI. Denies: Cough, Dyspnea, Hemoptysis, Stridor, Wheezes Cardiovascular: Reports: As per HPI. Denies: Arrhythmia, Chest pain, Dyspnea on exertion, Edema, Murmurs, Orthopnea, Palpitations, Paroxysmal nocturnal dyspnea, Rheumatic Fever, Syncope Endocrine: Reports: As per HPI. Denies: Fatigue, Heat or cold intolerance, Polydipsia, Polyuria Gastrointestinal: Reports: As per HPI. Denies: Abdominal pain, Constipation, Diarrhea, Hematemesis, Hematochezia, Melena, Nausea, Vomiting Genitourinary: Reports: As per HPI. Denies: Abnormal menses, Discharge, Dyspareunia, Dysuria, Frequency, Hematuria, Incontinence, Retention, Urgency Musculoskeletal: Reports: As per HPI. Denies: Arthralgia, Back pain, Gout, Joint swelling, Myalgia, Neck pain Skin: Reports: As per HPI. Denies: Bruising, Change in color, Change in hair/nails, Lesions, Pruritus, Rash Neurological: Reports: As per HPI, Headache, Numbness, Weakness. Denies: Abnor mal gait, Confusion, Paresthesias, Seizure, Tingling, Tremors, Vertigo Psychiatric: Reports: As per HPI. Denies: Anxiety, Auditory hallucinations, Depression, Homicidal thoughts, Suicidal thoughts, Visual hallucinations Hematological/Lymphatic: Reports: As per HPI. Denies: Anemia, Blood Clots, Easy bleeding, Easy bruising, Swollen glands Past Medical History - SOCIAL HISTORY Smoking Status: Former smoker Alcohol Use: None Drug Use: None - RESPIRATORY Hx Respiratory Disorders: Yes Hx Asthma: Yes Hx Pneumonia: Yes - CARDIOVASCULAR Hx Cardio Disorders: Yes Hx CHF: Yes Hx Edema: Yes Hx Hypertension: Yes Hx Irregular Heartbeat: Yes (A-fib) Hx Palpitations: Yes Comment:: skips beat - NEURO Hx Neuro Disorders: No - GI Hx GI Disorders: Yes Hx Reflux: Yes Comment:: frequent diarrhea - Hx Genitourinary Disorders: No - ENDOCRINE Hx Endocrine Disorders: Yes Hx Diabetes: Yes (type 2 with insulin) Hx Thyroid Disease: Yes (hypo) - MUSCULOSKELETAL Hx Musculoskeletal Disorders: Yes Hx Arthritis: Yes Hx Osteoporosis: Yes - PSYCH Hx Psych Problems: No - HEMATOLOGY/ONCOLOGY Hx Hematology/Oncology Disorders: Yes Hx Bruising: Yes Family Medical History Any Significant Family History?: Yes Hx Diabetes: Father, Mother, Brother/Sister Hx Heart Disease: Mother Hx Resp Disorders: Father Physical Exam - General General Appearance: Alert, Oriented x3, Cooperative, Mild distress - Head Head exam: Normal inspection - Eye Eye exam: Normal appearance, PERRL, EOMI Pupils: Normal accommodation - ENT ENT exam: Normal exam, Mucous membranes moist, Normal external ear exam, Normal orophraynx Ear exam: Normal external inspection. negative: External canal tenderness Nasal Exam: Normal inspection. negative: Discharge, Sinus tenderness Mouth exam: Normal external inspection, Tongue normal Teeth exam: Normal inspection. negative: Dental caries Throat exam: Normal inspection. negative: Tonsillar erythema, Tonsillar exudate - Neck Neck exam: Normal inspection, Full ROM. negative: Tenderness - Respiratory Respiratory exam: Normal lung sounds bilaterally. negative: Respiratory dist ress - Cardiovascular Cardiovascular Exam: Regular rate, Normal rhythm, Normal heart sounds - GI/Abdominal GI/Abdominal exam: Soft, Normal bowel sounds. negative: Tenderness - Rectal Rectal exam: Deferred - exam: Deferred - Extremities Extremities exam: Normal inspection, Full ROM, Normal capillary refill. negative: Tenderness - Back Back exam: Reports: Normal inspection, Full ROM. Denies: Muscle spasm, Rash noted, Tenderness - Neurological Neurological exam: Alert, CN II-XII intact, Normal gait, Oriented X3, Other (expressive aphasia mild) - Psychiatric Psychiatric exam: Normal affect, Normal mood - Skin Skin exam: Dry, Intact, Normal color, Warm Stroke Assessment - NIH Stroke Scale 1a. Level of Consciousness: (0) Alert 1b. LOC Questions: (0) Answers Correctly 1c. LOC Commands: (0) Performs Tasks Correctly 2. Best Gaze: (0) Normal 3. Visual: (0) No Visual Loss 4. Facial Palsy: (0) Normal Symmetrical Movement 5a. Motor Arm Left: (0) No Drift 5b. Motor Arm Right: (0) No Drift 6a. Motor Leg Left: (0) No Drift 6b. Motor Leg Right: (0) No Drift 7. Limb Ataxia: (0) Absent 8. Sensory: (0) Normal 9. Best Language: (1) Mild/Moderate Aphasia 10. Dysarthria: (1) Mild/Moderate Dysarthria 11. Extinction/Inattention: (0) No Abnormality NIH Stoke Scale Total: 2 Course Vital Signs 11/14/19 11/14/19 16:21 17:52 Temperature 97.9 F Pulse Rate 61 Pulse Rate [ 62 Pulse Ox Probe] Respiratory 18 18 Rate Blood Pressure 161/59 Blood Pressure 138/47 [Right Arm] Pulse Ox 98 96 - Reevaluation(s) Reevaluation #1: 11/14/19 18:22 pts symptoms have resolved Medical Decision Making - Lab Data Result diagrams: 11/14/19 16:25 11/14/19 16:25 Lab Results 11/14/19 11/14/19 11/14/19 Range/Units 16:25 16:25 16:25 WBC 8.6 (4.2-12.2) K/uL RBC 4.58 (3.80-5.40) M/uL Hgb 12.9 (11.6-16.0) gm/dl Hct 38.8 (35.0-47.0) % MCV 84.7 (81-97) fl MCH 28.2 (27-33) pg MCHC 33.2 (32-36) g/dl RDW 12.7 (11.5-14.5) % Plt Count 165 (130-400) K/uL MPV 10.8 H (7.4-10.4) fl Gran % 57.5 (47-80) % Lymphocytes % 27.1 (16-45) % Monocytes % 11.4 H (0-9) % Eosinophils % 3.4 (0-6) % Basophils % 0.6 (0-6) % Absolute Neutrophils 4.94 APTT 32.9 (24.5-39.1) SECONDS Sodium 137 (136-145) mmol/L Potassium 4.2 (3.4-4.5) mmol/L Chloride 99 (98-107) mmol/L Carbon Dioxide 26.0 (22-29) mmol/L Anion Gap 12.0 (7-16) BUN 30 H (8-23) mg/dL Creatinine 1.0 H (0.5-0.9) mg/dL Estimated GFR 57 mL/min Random Glucose 188 H (74-109) mg/dL Calcium 10.6 H (8.8-10.2) mg/dL CK-MB (CK-2) 3.1 (<3.77) ng/mL Disposition Disposition: Transfer Clinical Impression: TIA (transient ischemic attack) Disposition: Acute Care Hospital Transfer Transfer To: [facility] Reason For Transfer: needs stroke team Accepting Physician: camelia orantes and marvin Time Discussed w/Accepting Physician: 18:33 Forms: Patient Portal Access Quality - Quality Measures Quality Measures: N/A - Blood Pressure Screening Does Patient Have Any of the Following: Active Dx of HTN Blood Pressure Classification: Hypertensive Reading Systolic Measurement: 161 Diastolic Measurement: 59 Screening for High Blood Pressure: Patient Exclusion, Hx of HTN [G9744]
== END 2019-11-14 19:01 | disposition short-term general hospital (02) ==
LOC: ER 16:19
DX: G45.9 Transient cerebral ischemic attack, unspecified (principal); R51 Headache; Z87.891 Personal history of nicotine dependence; I10 Essential (primary) hypertension; I48.91 Unspecified atrial fibrillation; I50.9 Heart failure, unspecified; E11.9 Type 2 diabetes mellitus without complications; Z79.4 Long term (current) use of insulin
CPT/HCPCS: 70450; 80048; 82553; 85025; 85730; 93005; 93010; 99285